=== PATIENT | male | born 1960 | race Caucasian/White ===

== ENCOUNTER 2017-08-09 15:22 | Emergency (ER) | payer MEDICARE ==
[~2017-08-09] VITALS: Ht 185.4 cm; Wt 72.7 kg
[~2017-08-09 15:22] MED LIST: ACHYD1T; ASP325T PO; ASPI-586 PO; ASPI-983 PO; ASPI325T32 PO; ATOR40TA70 PO; ATOR80TA76 PO; Aspirin PO; Atorvastatin Calcium PO; CLOP75TA PO; CLOP75TA28 PO; DOXY100C2 PO; ENAL2.5T PO; ENAL20TA PO; GLIP10TA13 PO; GLIP5TAB13 PO; HYDR1TAB PO; INSU100I29 SQ; INSU100V5 SQ; METO50TA7 PO; MIRT15TA6 PO; MUPI1OIN5 NS; NAPR220T66 PO; NEED1DIS84 MC; OMEP-10 PO; OMG1KC; OXYC-202 PO; OXYC-465 PO; OXYCOD/APAP; OXYCODONE; Omega 3 Polyunsat Fatty Acids PO; PANT40TA3 PO; PNT40TEC PO; PRAV80TA2 PO; SIMV40TA2 PO
--- OUTSIDE RECORDS SUMMARY | 2017-08-09 15:29 | XMS REPORT | Continuity of Care Document ---
Author Author [facility] Organization [facility] Address Unknown Phone Unavailable Allergies Active Description Code Type Severity Reaction Onset Reported/Identified Relationship to Patient Clinical Status Yes No Known Drug Allergies [id number] Drug Allergy Unknown N/ A 02/20/2013 Medications Problems Date Dx Coded Attending Type Code Diagnosis Diagnosed By 11/15/2014 MIHIR DO, NATASHA K Ot 250.00 11/15/2014 MIHIR DO, NATASHA K Ot 272.4 11/15/2014 [place] DO, NATASHA K Ot 401.9 11/15/2014 [place] DO, NATASHA K Ot 414.00 11/15/2014 [place] DO, NATASHA K Ot 786.50 11/15/2014 [place] DO, NATASHA K Ot V45.81 11/15/2014 [place] DO, NATASHA K Ot V45.82 11/15/2014 [place] DO, NATASHA K Ot V58.69 05/19/2015 ILEANA REYNOSO, CHRISTOPH R Ot 250.00 05/19/2015 ILEANA REYNOSO, CHRISTOPH R Ot 305.1 05/19/2015 ILEANA REYNOSO, CHRISTOPH R Ot 414.01 05/19/2015 ILEANA REYNOSO, CHRISTOPH R Ot 414.02 05/19/2015 ILEANA REYNOSO, CHRISTOPH R Ot 414.2 05/19/2015 ILEANA REYNOSO, CHRISTOPH R Ot 496 05/19/2015 ILEANA REYNOSO, CHRISTOPH R Ot 786.50 05/19/2015 ILEANA REYNOSO, CHRISTOPH R Ot V15.81 05/19/2015 ILEANA REYNOSO, CHRISTOPH R Ot V45.81 05/19/2015 ILEANA REYNOSO, CHRISTOPH R Ot V45.82 05/19/2015 ILEANA REYNOSO, CHRISTOPH R Ot V58.69 07/18/2015 COOPER REYNOSO, SUSAN Pretty Ot 250.00 07/18/2015 COOPER REYNOSO, SUSAN Pretty Ot 272.4 07/18/2015 COOPER REYNOSO, SUSAN Pretty Ot 305.1 07/18/2015 COOPER REYNOSO, SUSAN J Ot 401.9 07/18/2015 COOPER REYNOSO, SUSAN J Ot 411.1 07/18/2015 COOPER REYNOSO, SUSAN J Ot 414.01 07/18/2015 COOPER REYNOSO, SUSAN J Ot 414.02 07/18/2015 COOPER REYNOSO, SUSAN J Ot 414.2 07/18/2015 COOPER REYNOSO, SUSAN J Ot E11.9 07/18/2015 COOPER REYNOSO, SUSAN J Ot E78.5 07/18/2015 COOPER REYNOSO, SUSAN J Ot F17.211 07/18/2015 COOPER REYNOSO, SUSAN J Ot F17.220 07/18/2015 COOPER REYNOSO, SUSAN J Ot I10 07/18/2015 COOPER REYNOSO, SUSAN J Ot I25.119 07/18/2015 COOPER REYNOSO, SUSAN J Ot I25.709 07/18/2015 COOPER REYNOSO, SUSAN J Ot I25.82 07/18/2015 COOPER REYNOSO, SUSAN J Ot V15.81 07/18/2015 COOPER REYNOSO, SUSAN J Ot V45.81 07/18/2015 COOPER REYNOSO, SUSAN J Ot V45.82 07/18/2015 COOPER REYNOSO, SUSAN J Ot V58.69 07/18/2015 COOPER REYNOSO, SUSAN J Ot Z79.899 07/18/2015 COOPER REYNOSO, SUSAN J Ot Z91.19 07/18/2015 COOPER REYNOSO, SUSAN J Ot Z95.1 07/18/2015 COOPER REYNOSO, SUSAN J Ot Z95.5 09/13/2015 ILEANA REYNOSO, CHRISTOPH R Ot E11.65 09/13/2015 ILEANA REYNOSO, CHRISTOPH R Ot E78.5 09/13/2015 ILEANA REYNOSO, CHRISTOPH R Ot F17.210 09/13/2015 ILEANA REYNOSO, CHRISTOPH R Ot G89.29 09/13/2015 ILEANA REYNOSO, CHRISTOPH R Ot I10 09/13/2015 ILEANA REYNOSO, CHRISTOPH R Ot I70.90 09/13/2015 ILEANA REYNOSO, CHRISTOPH R Ot J44.9 09/14/2015 ILEANA REYNOSO, CHRISTOPH R Ot E11.65 09/14/2015 ILEANA REYNOSO, CHRISTOPH R Ot E78.5 09/14/2015 ILEANA REYNOSO, CHRISTOPH R Ot F17.210 09/14/2015 ILEANA REYNOSO, CHRISTOPH R Ot G89.29 09/14/2015 ILEANA REYNOSO, CHRISTOPH R Ot I10 09/14/2015 ILEANA REYNOSO, CHRISTOPH R Ot I70.90 09/14/2015 ILEANA REYNOSO, CHRISTOPH R Ot J44.9 10/26/2015 ILEANA REYNOSO, CHRISTOPH R Ot E11.65 10/26/2015 ILEANA ERYNOSO, CHRISTOPH R Ot E78.0 10/26/2015 IELANA REYNOSO, CHRISTOPH R Ot F32.9 10/26/2015 ILEANA REYNOSO, CHRISTOPH R Ot G89.29 10/26/2015 ILEANA REYNOSO, CHRISTOPH R Ot I10 10/26/2015 ILEANA REYNOSO, CHRISTOPH R Ot I25.10 10/26/2015 ILEANA REYNOSO, CHRISTOPH R Ot T14.91 10/26/2015 ILEANA REYNOSO, CHRISTOPH R Ot X83.8XXA 10/26/2015 ILEANA REYNOSO, CHRISTOPH R Ot Y99.8 10/26/2015 ILEANA REYNOSO, CHRISTOPH R Ot Z79.4 10/26/2015 ILEANA REYNOSO, CHRISTOPH R Ot Z95.1 05/05/2016 ILEANA REYNOSO, CHRISTOPH R Ot E11.65 TYPE 2 DIABETES MELLITUS WITH HYPERGLYCE 05/05/2016 ILEANA REYNOSO, CHRISTOPH R Ot E13.10 OTH DIABETES MELLITUS WITH KETOACIDOSIS 05/05/2016 ILEANA REYNOSO, CHRISTOPH R Ot E78.0 PURE HYPERCHOLESTEROLEMIA 05/05/2016 ILEANA REYNOSO, CHRISTOPH R Ot E86.0 DEHYDRATION 05/05/2016 ILEANA REYNOSO, CHRISTOPH R Ot E87.5 HYPERKALEMIA 05/05/2016 ILEANA REYNOSO, CHRISTOPH R Ot F32.9 MAJOR DEPRESSIVE DISORDER, SINGLE EPISOD 05/05/2016 ILEANA REYNOSO, CHRISTOPH R Ot G89.29 OTHER CHRONIC PAIN 05/05/2016 ILEANA REYNOSO, CHRISTOPH R Ot I10 ESSENTIAL (PRIMARY) HYPERTENSION 05/05/2016 ILEANA REYNOSO, CHRISTOPH R Ot I25.10 ATHSCL HEART DISEASE OF [place] CORONARY 05/05/2016 CHRISTOPH TEJEDA MD, Ot K21.9 GASTRO-ESOPHAGEAL REFLUX DISEASE WITHOUT 05/05/2016 CHRISTOPH TEJEDA MD, Ot M54.9 DORSALGIA, UNSPECIFIED 05/05/2016 CHRISTOPH TEJEDA MD, Ot Z87.891 PERSONAL HISTORY OF NICOTINE DEPENDENCE 05/05/2016 CHRISTOPH TEJEDA MD, Ot Z91.14 PATIENT'S OTHER NONCOMPLIANCE WITH MEDIC 05/05/2016 CHRISTOPH TEJEDA MD, Ot Z95.1 PRESENCE OF AORTOCORONARY BYPASS GRAFT 05/05/2016 CHRISTOPH TEJEDA MD, Ot Z95.5 PRESENCE OF CORONARY ANGIOPLASTY IMPLANT 10/01/2016 CHRISTOPH TEJEDA MD, Ot N52.9 MALE ERECTILE DYSFUNCTION, UNSPECIFIED 10/24/2016 CHRISTOPH TEJEDA MD, Ot N52.9 MALE ERECTILE DYSFUNCTION, UNSPECIFIED Procedures Results Test Result Range Serum or plasma testosterone measurement (mass/volume) - 09/30/16 12:48 Testosterone [mass or moles/volume] in serum or plasma 193 % 241-827 Encounters ACCT No. Visit Date/Time Discharge Status Pt. Type Provider Facility Loc./Unit Complaint [id number] 09/30/2016 12:37:00 2015 23:59:59 CLS Outpatient CHRISTOPH TEJEDA MD [facility] LAB ED [id number] 05/03/2016 09:00:00 2015 11:30:00 DIS Inpatient CHRISTOPH TEJEDA MD [facility] 4TH AMS HYPERKALEMIA ARF HYPERGLYCEMIA [id number] 10/25/2015 12:41:00 2014 11:30:00 DIS Inpatient CHRISTOPH TEJEDA MD [facility] ICU [id number] 09/11/2015 12:45:00 2014 08:30:00 DIS Inpatient CHRISTOPH TEJEDA MD [facility] 4TH [id number] 07/17/2015 22:14:00 2014 20:20:00 DIS Outpatient COOPER REYNOSO, SUSAN Pretty [facility] CATH [id number] 05/17/2015 15:00:00 2014 10:10:00 DIS Outpatient CHRISTOPH TEJEDA MD [facility] [id number] 11/15/2014 18:26:00 2014 20:01:00 DIS Emergency NATASHA ASH DO [facility] ER [id number] 05/09/2014 09:45:00 2013 12:15:00 DIS Outpatient [id number] 05/04/2014 07:28:00 2013 23:59:59 CLS Outpatient [id number] 05/02/2014 09:07:00 2013 23:59:59 CLS Outpatient [id number] 04/15/2014 10:44:00 2013 23:59:59 CLS Outpatient [id number] 04/11/2014 10:04:00 2013 23:59:59 CLS Outpatient [id number] 07/14/2013 11:16:00 2012 23:59:59 CLS Outpatient [id number] 02/20/2013 20:30:00 2012 12:10:00 DIS Outpatient
[2017-08-09] MEDS ORDERED: NS IV 1000 ML 1,000 ML ONE (15:53)
[2017-08-09] MEDS ORDERED: NS IV 1000 ML 1,000 ML IV ONE (16:00)
[2017-08-09] MEDS ORDERED: NS IV 1000 ML 1,000 ML IV STA (16:01)
[2017-08-09 16:06] LABS: BASOPHILS # (AUTO) 0.2 10^3/uL (0.0-0.1); BASOPHILS % (AUTO) 1 % (0-10); EOSINOPHILS # (AUTO) 0.2 10^3/uL (0.0-0.3); EOSINOPHILS % (AUTO) 2 % (0-10); LYMPHOCYTES # (AUTO) 3.9 X 10^3 (1.0-4.0); LYMPHOCYTES % (AUTO) 37 % (12-44); MEAN CORPUSCULAR HEMOGLOBIN 28 PG (25-34); MEAN CORPUSCULAR HGB CONC 35 G/DL (32-36); MEAN CORPUSCULAR VOLUME 82 FL (80-99); MEAN PLATELET VOLUME 10.5 FL (7.4-10.4); MONOCYTES # (AUTO) 0.9 X 10^3 (0.0-1.0); MONOCYTES % (AUTO) 8 % (0-12); NEUTROPHILS # (AUTO) 5.6 X 10^3 (1.8-7.8); NEUTROPHILS % (AUTO) 52 % (42-75); PLATELET COUNT 420 10^3/uL (130-400); RED BLOOD COUNT 5.15 10^6/uL (4.35-5.85); RED CELL DISTRIBUTION WIDTH 12.2 % (10.0-14.5); WHITE BLOOD COUNT 10.7 10^3/uL (4.3-11.0)
--- NOTE | 2017-08-09 16:07 | ED General ---
General Chief Complaint: Glucose Problems Stated Complaint: HIGH BLOOD PRESSURE Nursing Triage Note: PT AMBULATES TO ROOM 8 CO OF ELEVATED BS. WAS HOSPITALIZED LAST WEEK FOR KETOACIDOSIS Nursing Sepsis Screen: No Definite Risk Source of Information: Patient, Spouse Exam Limitations: No Limitations History of Present Illness Time Seen by Provider: 15:59 Initial Comments Patient presents to ER by private conveyance with his spouse with chief complaint that he is blood sugar for the past 2 days has been elevated. This morning it was reading high and then he took his 10 units of Levemir as prescribed and it was 441 after that. He was one week ago discharged from the hospital for DKA. He was in the hospital for 3 days. He also has a history of coronary disease with 6 stents and a coronary artery bypass graft. He is having no chest pain or abdominal pain but he does have intermittent crampy pains on the right side of his abdomen. He's had no nausea or vomiting. He has been urinating frequently and feels very dehydrated with a dry mouth and says his skin tents up when he pinches it. He does not take any short acting insulin, metformin and has been stopped on the glipizide. Allergies and Home Medications Allergies Coded Allergies: No Known Drug Allergies (Unverified , 02/20/13) Home Medications Aspirin 81 Mg Tablet.dr, 81 MG PO DAILY PRN for CHEST PAIN, (Reported) Atorvastatin Calcium 40 Mg Tablet, 40 MG PO HS, #30 Prescribed by: REYNA LIZ on 08/03/17 0933 Enalapril Maleate 2.5 Mg Tablet, 2.5 MG PO DAILY for 30 Days, #30 Prescribed by: REYNA LIZ on 08/03/17 0929 Insulin Aspart 100 Unit/1 Ml Susp, 5 UNIT SQ TIDAC for 30 Days, #10 Ref 0 Prescribed by: CELSO HACKETT on 08/09/17 1720 Insulin Determir 1,000 Units/10 Ml Soln, 10 UNITS SQ HS for 30 Days, #30 Prescribed by: REYNA LIZ on 08/03/17 0929 Mupirocin Calcium 1 Gm Oint...g., 1 GM NS BID, #1 insert into nose twice daily x 5 days Prescribed by: DELMI DUNBAR on 05/05/16 1105 Oxycodone HCl/Acetaminophen 1 Each Tablet, 2 TAB PO Q6H PRN for PAIN, (Reported) Pantoprazole Sodium 40 Mg Tablet.dr, 40 MG PO DAILY, (Reported) Constitutional: No chills, No diaphoresis EENTM: No hearing loss, No ear pain Respiratory: No cough, No short of breath Cardiovascular: No chest pain, No palpitations Gastrointestinal: see HPI, abdominal pain, No constipation, No diarrhea, No nausea, No vomiting Genitourinary: No discharge, dysuria Musculoskeletal: No back pain, No joint pain Skin: No pruritus, No rash Psychiatric/Neurological: Denies Headache, Denies Numbness, Paresthesia ( bilateral lower extremity peripheral neuropathy), Tingling Past Vfitszm-Iaappm-Uneupi Hx Patient Social History Alcohol Use: Denies Use Recreational Drug Use: No Smoking Status: Former Smoker Type Used: Smokeless Tobacco Former Smoker, Quit: Jan 05, 2015 Recent Foreign Travel: No Contact w/Someone Who Travel: No Recent Infectious Disease Expo: No Recent Hopitalizations: Yes (KETOACIDOSIS) Physical Abuse: No Sexual Abuse: No Immunizations Up To Date Tetanus Booster (TDap): More than 5yrs PED Vaccines UTD: No Seasonal Allergies Seasonal Allergies: No Surgeries History of Surgeries: Yes Surgeries: Cardiac, CABG, Coronary Stent, Orthopedic Respiratory History of Respiratory Disorde: Yes Respiratory Disorders: COPD Currently Using CPAP: No Currently Using BIPAP: No Cardiovascular History of Cardiac Disorders: Yes Cardiac Disorders: Coronary Artery Disease, High Cholesterol, Hypertension Neurological History of Neurological Disord: Yes ("fibro and neuropathy" "pinched nerve") Neurological Disorders: Neuropathy Reproductive System Hx Reproductive Disorders: No Sexually Transmitted Disease: No HIV/AIDS: No Genitourinary History of Genitourinary Disor: Yes ("BLADDER STRETCHED CHILD X 2") Gastrointestinal History of Gastrointestinal Di: Yes Gastrointestinal Disorders: Gastroesophageal Reflux Musculoskeletal History of Musculoskeletal Dis: Yes Musculoskeletal Disorders: Arthritis, Chronic Back Pain Endocrine History of Endocrine Disorders: Yes Endocrine Disorders: Diabetes, Insulin dep HEENT History of HEENT Disorders: Yes Loss of Vision: Denies Hearing Impairment: Denies Cancer History of Cancer: No Psychosocial History of Psychiatric Problem: Yes (history of suicidal ideation) Suicide Risk Score: 0 Integumentary History of Skin or Integumenta: No Blood Transfusions History of Blood Disorders: No Adverse Reaction to a Blood Tr: No Family Medical History Family Medial History: Cardiovascular disease 19 MOTHER G8 BROTHER Diabetes mellitus 19 MOTHER Physical Exam Vital Signs Vital Sign - Last 12Hours 08/09/17 15:40 Temp 97.1 Pulse 124 Resp 18 B/P (MAP) 142/104 Pulse Ox 96 Capillary Refill : Less Than 3 Seconds General Appearance: WD/WN, Mild Distress Eyes: Bilateral Eye Normal Inspection, Bilateral Eye PERRL, Bilateral Eye EOMI HEENT: PERRL/EOMI, Normal ENT Inspection, Pharynx Normal Neck: Full Range of Motion, Normal Inspection, Non Tender Respiratory: Chest Non Tender, Lungs Clear, Normal Breath Sounds Cardiovascular: Regular Rate, Rhythm, No Edema, Normal Peripheral Pulses, Other (skin turgor shows skin tenting on back of hands.) Gastrointestinal: Normal Bowel Sounds, Soft, Tenderness (mild tenderness right upper quadrant) Back: Normal Inspection, No Vertebral Tenderness Extremity: Normal Capillary Refill, Normal Inspection, Non Tender, No Calf Tenderness, No Pedal Edema Neurologic/Psychiatric: Alert, Oriented x3 Skin: Normal Color, Warm/Dry, Other (dry mucous membranes.) Progress/Results/Core Measures Results/Orders Lab Results Laboratory Tests Test 08/09/17 15:40 08/09/17 16:10 08/09/17 16:33 Range/Units White Blood Count 10.7 4.3-11.0 10^3/uL Red Blood Count 5.15 4.35-5.85 10^6/uL Hemoglobin 14.6 13.3-17.7 G/DL Hematocrit 42 40-54 % Mean Corpuscular Volume 82 80-99 FL Mean Corpuscular Hemoglobin 28 25-34 PG Mean Corpuscular Hemoglobin Concent 35 32-36 G/DL Red Cell Distribution Width 12.2 10.0-14.5 % Platelet Count 420 H 130-400 10^3/uL Mean Platelet Volume 10.5 H 7.4-10.4 FL Neutrophils (%) (Auto) 52 42-75 % Lymphocytes (%) (Auto) 37 12-44 % Monocytes (%) (Auto) 8 0-12 % Eosinophils (%) (Auto) 2 0-10 % Basophils (%) (Auto) 1 0-10 % Neutrophils # (Auto) 5.6 1.8-7.8 X 10^3 Lymphocytes # (Auto) 3.9 1.0-4.0 X 10^3 Monocytes # (Auto) 0.9 0.0-1.0 X 10^3 Eosinophils # (Auto) 0.2 0.0-0.3 10^3/uL Basophils # (Auto) 0.2 H 0.0-0.1 10^3/uL Prothrombin Time 12.2 12.2-14.7 SEC INR Comment 0.9 0.8-1.4 Activated Partial Thromboplast Time 24 24-35 SEC Sodium Level 132 L 135-145 MMOL/L Potassium Level 4.5 3.6-5.0 MMOL/L Chloride Level 95 L 98-107 MMOL/L Carbon Dioxide Level 25 21-32 MMOL/L Anion Gap 12 5-14 MMOL/L Blood Urea Nitrogen 16 7-18 MG/DL Creatinine 1.16 0.60-1.30 MG/DL Estimat Glomerular Filtration Rate > 60 BUN/Creatinine Ratio 14 Glucose Level 531 *H 70-105 MG/DL Glucometer 440 *H 70-110 MG/DL Calcium Level 9.7 8.5-10.1 MG/DL Phosphorus Level 3.0 2.3-4.7 MG/DL Magnesium Level 2.2 1.8-2.4 MG/DL Total Bilirubin 0.3 0.1-1.0 MG/DL Aspartate Amino Transf (AST/SGOT) 9 5-34 U/L Alanine Aminotransferase (ALT/SGPT) 15 0-55 U/L Alkaline Phosphatase 120 40-136 U/L Total Protein 7.3 6.4-8.2 GM/DL Albumin 4.2 3.2-4.5 GM/DL Urine Color YELLOW Urine Clarity CLEAR Urine pH 6 5-9 Urine Specific [place] 1.010 L 1.016-1.022 Urine Protein 1+ H NEGATIVE Urine Glucose (UA) 4+ H NEGATIVE Urine Ketones NEGATIVE NEGATIVE Urine Nitrite NEGATIVE NEGATIVE Urine Bilirubin NEGATIVE NEGATIVE Urine Urobilinogen NORMAL NORMAL MG/DL Urine Leukocyte Esterase NEGATIVE NEGATIVE Urine RBC (Auto) NEGATIVE NEGATIVE Urine RBC RARE /HPF Urine WBC NONE /HPF Urine Crystals NONE /LPF Urine Bacteria NONE /HPF Urine Casts NONE /LPF Urine Mucus NEGATIVE /LPF Urine Culture Indicated NO Urine Opiates Screen POSITIVE H NEGATIVE Urine Oxycodone Screen NEGATIVE NEGATIVE Urine Methadone Screen NEGATIVE NEGATIVE Urine Propoxyphene Screen NEGATIVE NEGATIVE Urine Barbiturates Screen NEGATIVE NEGATIVE Ur Tricyclic Antidepressants Screen NEGATIVE NEGATIVE Urine Phencyclidine Screen NEGATIVE NEGATIVE Urine Amphetamines Screen NEGATIVE NEGATIVE Urine Methamphetamines Screen NEGATIVE NEGATIVE Urine Benzodiazepines Screen NEGATIVE NEGATIVE Urine Cocaine Screen NEGATIVE NEGATIVE Urine Cannabinoids Screen NEGATIVE NEGATIVE Blood Gas Puncture Site LT RADIAL Blood Gas Patient Temperature 97.1 Arterial Blood pH 7.33 *L 7.37-7.43 Arterial Blood Partial Pressure CO2 43 35-45 MMHG Arterial Blood Partial Pressure O2 35 *L 79-93 MMHG Arterial Blood HCO3 23 23-27 MMOL/L Arterial Blood Total CO2 24.0 21.0-31.0 MMOL/L Arterial Blood Oxygen Saturation 66 L 94-100 % Arterial Blood Base Excess -2.5 -2.5-2.5 MMOL/L Jack Test YES-POS Blood Gas Ventilator Setting NO Blood Gas Inspired Oxygen ROOM My Orders Orders - CELSO HACKETT Cbc With Automated Diff (08/09/17 16:00) Comprehensive Metabolic Panel (08/09/17 16:00) Drug Screen Stat (Urine) (08/09/17 16:00) Magnesium (08/09/17 16:00) Protime With Inr (08/09/17 16:00) Partial Thromboplastin Time (08/09/17 16:00) Ua Culture If Indicated (08/09/17 16:00) Phosphorus (08/09/17 16:00) Chest 1 View, Ap/Pa Only (08/09/17 16:00) Saline Lock/Iv-Start (08/09/17 16:00) Ns Iv 1000 Ml (Sodium Chloride 0.9%) (08/09/17 16:00) Ns Iv 1000 Ml (Sodium Chloride 0.9%) (08/09/17 15:53) Saline Lock/Iv-Start (08/09/17 16:01) Ns Iv 1000 Ml (Sodium Chloride 0.9%) (08/09/17 16:01) Arterial Blood Gas (08/09/17 16:20) Insulin (Regular) Human (Humulin R (Per (08/09/17 17:15) Accucheck Stat ONCE (08/09/17 17:12) Insulin (Regular) Human (Humulin R (Per (08/09/17 17:05) Medications Given in ED Current Medications Medications Dose Ordered Sig/Lorena Route Start Time Stop Time Status Last Admin Dose Admin Insulin Human Regular 10 unit ONCE ONCE SC 08/09/17 17:15 08/09/17 17:16 DC 08/09/17 17:10 10 UNIT Sodium Chloride 1,000 ml @ 0 mls/hr Q0M ONCE IV 08/09/17 16:00 08/09/17 16:03 DC 08/09/17 16:05 1,000 MLS/HR Vital Signs/I&O Vital Sign - Last 12Hours 08/09/17 15:40 Temp 97.1 Pulse 124 Resp 18 B/P (MAP) 142/104 Pulse Ox 96 Intake and Output 08/10/17 00:00 Intake Total 2000 ml Balance 2000 ml Blood Pressure Mean: 117 Point of Care Testing Finger Stick Blood Glucose: 440 Blood Glucose Action Taken: RN AND DR NOTIFIED Progress Note #1: Time: 17:12 Progress Note Patient received 2 L of fluid and feeling much better. He is not in DKA. The ABG represents venous blood draw. His gap is closed and he has no acidosis seen on the CMP. We will give him 10 units or regular insulin recheck his Accu-Chek in about 10:15 minutes and if it's gone down we'll set him up with a dose of Levemir 20 units and NovoLog 5 units subcutaneous 3 times a day with meals and follow-up this week with his primary care physician. Progress Note #2: Time: 17:58 Progress Note Follow-up blood sugar is 344 we'll go ahead and discharge the patient and plans to increase insulin and follow-up with PCP next week. Diagnostic Imaging Diagonstic Imaging: Xray Plain Films/CT/US/NM/MRI: chest Comments NAME: OUMOU JEFFERS MED REC#: [id number] PHYSICIAN: CELSO HACKETT MD CC: SHANTAL ANDERSON MD; CLESO HACKETT Page 1 of 1 RADIOLOGY REPORT [facility]. [place], [place] CC: SHANTAL ANDERSON MD; CELSO HACKETT Page 1 of 1 RADIOLOGY REPORT NAME: OUMOU JEFFERS MED REC#: [id number] PT STATUS: REG ER : 1960 PHYSICIAN: CELSO HACKETT MD ADMIT DATE: 08/09/17/ER Signed Date of Exam: 10/14/17 CHEST 1 VIEW, AP/PA ONLY INDICATION: Elevated blood sugar. Comparison made with prior from August 02, 2017. FINDINGS: The patient is status post previous sternotomy and bypass grafting. There is no focal infiltrate. There is no evidence of effusion. There is no pneumothorax. Heart size is stable. The central pulmonary vascularity appears within normal limits without evidence of failure. IMPRESSION: Stable radiographic appearance of the chest. No acute cardiopulmonary process evident. Dictated by: Dictated on workstation # [id number] Dict: 08/09/17 1631 Trans: 08/09/171658 Interpreted by: SHANTAL ANDERSON MD Electronically signed by: SHANTAL ANDERSON MD 08/09/171658 Reviewed: Reviewed by Me Departure Impression Impression: Primary Impression: Hyperglycemia Additional Impression: Diabetes mellitus Qualified Codes: E11.42 - Type 2 diabetes mellitus with diabetic polyneuropathy Disposition: HOME, SELF-CARE Condition: Improved Departure-Patient Inst. Referrals: CHRISTOPH TEJEDA MD (PCP/Family) Primary Care Physician Patient Instructions: Diabetes Type 2 (DC) Add. Discharge Instructions: Drink plenty of fluids and try and eat something even if it's a small healthy snack 3 times a day with your insulin. Increase your long-acting insulin to 20 units daily. Take up the needles and NovoLog and start taking 5 units with each meal. If you take the short acting insulin, NovoLog been you have to eat something even if it's just a snack. Avoid carbohydrates such as soda, posterior , crackers, rice, potatoes. Try and eat things high in fiber such as vegetables and protein. All discharge instructions reviewed with patient and/or family. Voiced understanding. Scripts Insulin Aspart (Novolog) 100 Unit/1 Ml Susp 5 UNIT SQ TIDAC for 30 Days, #10 ML 0 Refills Prov: CELSO HACKETT 08/09/17 Copy Copies To 1: CHRISTOPH TEJEDA MD, TITUS J Aug 09, 2017 16:07
[2017-08-09 16:11] LABS: INR 0.9 (0.8-1.4); PROTHROMBIN TIME PATIENT 12.2 SEC (12.2-14.7)
[2017-08-09 16:19] LABS: ALANINE AMINOTRANSFERASE 15 U/L (0-55); ALBUMIN 4.2 GM/DL (3.2-4.5); ANION GAP 12 MMOL/L (5-14); ASPARTATE AMINO TRANSFERASE 9 U/L (5-34); BILIRUBIN,TOTAL 0.3 MG/DL (0.1-1.0); BLOOD UREA NITROGEN 16 MG/DL (7-18); BUN/CREATININE RATIO 14; CALCIUM 9.7 MG/DL (8.5-10.1); CARBON DIOXIDE 25 MMOL/L (21-32); CHLORIDE 95 MMOL/L (98-107); CREATININE SERUM 1.16 MG/DL (0.60-1.30); GFR ESTIMATED > 60; MAGNESIUM 2.2 MG/DL (1.8-2.4); POTASSIUM 4.5 MMOL/L (3.6-5.0); SODIUM 132 MMOL/L (135-145); TOTAL PROTEIN 7.3 GM/DL (6.4-8.2)
[2017-08-09 16:21] LABS: BILIRUBIN,URINE NEGATIVE (NEGATIVE); KETONES,URINE NEGATIVE (NEGATIVE); LEUKOCYTE ESTERASE ,URINE NEGATIVE (NEGATIVE); NITRITE,URINE NEGATIVE (NEGATIVE); PH,URINE 6 (5-9); PROTEIN,URINE 1+ (NEGATIVE); UROBILINOGEN,URINE NORMAL (NORMAL)
[2017-08-09 16:27] LABS: GLUCOSE 531 MG/DL (70-105)
--- NOTE | 2017-08-09 16:35 | Diagnostic Imaging Report ---
INDICATION: Elevated blood sugar. Comparison made with prior from August 02, 2017. FINDINGS: The patient is status post previous sternotomy and bypass grafting. There is no focal infiltrate. There is no evidence of effusion. There is no pneumothorax. Heart size is stable. The central pulmonary vascularity appears within normal limits without evidence of failure. IMPRESSION: Stable radiographic appearance of the chest. No acute cardiopulmonary process evident. Dictated by: Dictated on workstation # [id number]
[2017-08-09 16:36] LABS: ABG BASE EXCESS -2.5 MMOL/L (-2.5-2.5); ABG HCO3 23 MMOL/L (23-27); ABG OXYGEN SATURATION 66 % (94-100); ABG PCO2 43 MMHG (35-45)
[2017-08-09 16:38] LABS: ABG PO2 35 MMHG (79-93)
[2017-08-09 16:40] LABS: ABG PH 7.33 (7.37-7.43); ALLENS TEST YES-POS; PATIENT TEMP 97.1
[2017-08-09] MEDS ORDERED: inSUlin (REGULAR) HUMAN 1 UNIT/0.01 ML (CHARGE PER UNIT) ONE (17:05)
[2017-08-09] MEDS ORDERED: inSUlin (REGULAR) HUMAN 1 UNIT/0.01 ML (CHARGE PER UNIT) SC ONE (17:15)
[2017-08-09] MEDS ORDERED: INSU100V16 SQ (17:20)
[2017-08-09 18:04] VITALS: BP 136/88
== END 2017-08-09 18:00 | disposition home or self-care (01) ==
LOC: EDUNIT# 15:22 → ER 15:24
DX: E11.65 Type 2 diabetes mellitus with hyperglycemia (principal); E11.40 Type 2 diabetes mellitus with diabetic neuropathy, unspecified; K21.9 Gastro-esophageal reflux disease without esophagitis; I25.10 Atherosclerotic heart disease of native coronary artery without angina pectoris; E78.00 Pure hypercholesterolemia, unspecified; I10 Essential (primary) hypertension; J44.9 Chronic obstructive pulmonary disease, unspecified; Z95.1 Presence of aortocoronary bypass graft; Z95.5 Presence of coronary angioplasty implant and graft; Z87.891 Personal history of nicotine dependence; Z79.4 Long term (current) use of insulin; Z79.82 Long term (current) use of aspirin
CPT/HCPCS: 36415; 71010; 80053; 80306; 81000; 82805; 82962; 83735; 84100; 85025; 85610; 85730

== ENCOUNTER 2017-08-27 08:33 | Day surgery (SDC) | payer MEDICARE ==
[~2017-08-27] VITALS: Ht 185.4 cm; Wt 68.0 kg
[2017-08-27] VITALS (9 sets, daily range): BP systolic 133–162; BP diastolic 86–103
[~2017-08-27 08:33] MED LIST changes: +INSU100V16 SQ
[2017-08-27] MEDS ORDERED: HEParin 1000 UNIT/ML (10ML VIAL) FOR BOLUS ONE (08:35)
[2017-08-27] MEDS ORDERED: NS IV 1000 ML 1,000 ML IV SCH ×2 (08:45→12:18)
[2017-08-27 09:05] LABS: BILIRUBIN,URINE NEGATIVE (NEGATIVE); KETONES,URINE NEGATIVE (NEGATIVE); LEUKOCYTE ESTERASE ,URINE NEGATIVE (NEGATIVE); NITRITE,URINE NEGATIVE (NEGATIVE); PH,URINE 6 (5-9); PROTEIN,URINE 2+ (NEGATIVE); UROBILINOGEN,URINE NORMAL (NORMAL)
[2017-08-27 09:09] LABS: RED BLOOD COUNT 4.56 10^6/uL (4.35-5.85); RED CELL DISTRIBUTION WIDTH 12.3 % (10.0-14.5)
[2017-08-27] MEDS ORDERED: ENAL2.5T PO (09:13)
[2017-08-27] MEDS ORDERED: ATOR40TA70 PO (09:13)
[2017-08-27] MEDS ORDERED: INSU100V5 SQ (09:13)
[2017-08-27 09:15] LABS: INR 0.9 (0.8-1.4); PROTHROMBIN TIME PATIENT 12.1 SEC (12.2-14.7)
[2017-08-27] MEDS ORDERED: INFLUENZA TRIvalent 2017-2018 0.5 ML/45 MCG SYR IM ONE (09:15)
[2017-08-27 09:23] LABS: ALANINE AMINOTRANSFERASE 11 U/L (0-55); ALBUMIN 3.8 GM/DL (3.2-4.5); ANION GAP 9 MMOL/L (5-14); ASPARTATE AMINO TRANSFERASE 9 U/L (5-34); BILIRUBIN,TOTAL 0.4 MG/DL (0.1-1.0); BLOOD UREA NITROGEN 7 MG/DL (7-18); BUN/CREATININE RATIO 8; CALCIUM 9.1 MG/DL (8.5-10.1); CARBON DIOXIDE 28 MMOL/L (21-32); CHLORIDE 101 MMOL/L (98-107); CHOLESTEROL 187 MG/DL (< 200); CREATININE SERUM 0.87 MG/DL (0.60-1.30); DIRECT LDL 76 MG/DL (1-129); GFR ESTIMATED > 60; GLUCOSE 295 MG/DL (70-105); POTASSIUM 3.6 MMOL/L (3.6-5.0); SODIUM 138 MMOL/L (135-145); TOTAL PROTEIN 6.4 GM/DL (6.4-8.2); TRIGLYCERIDES 447 MG/DL (<150); VLDL CHOLESTEROL 89 MG/DL (5-40)
--- NOTE | 2017-08-27 09:35 | Diagnostic Imaging Report ---
EXAMINATION: Portable upright radiograph of the chest. INDICATION: Hypertension. Peripheral vascular disease. FINDINGS: There is a tiny left pleural effusion and left basilar atelectasis seen. Element of scarring is probably present as similar findings are seen on prior radiographs. The right lung is clear of focal infiltrate. There is suggestion of emphysema with hyperlucency in the upper lobes. The heart size is normal. No pneumothorax. The mediastinum and francia appear unremarkable. Sternotomy wires are seen. IMPRESSION: Tiny left pleural effusion with mild left basilar atelectasis and infiltrate. Dictated by: Dictated on workstation # [id number]
--- NOTE | 2017-08-27 10:01 | Cardiac Procedure Note-CS/ASA ---
Pre-Procedure Note Pre-Op Procedure Note H&P Reviewed The H&P was reviewed, patient examined and no changes noted. Date H&P Reviewed: Aug 27, 2017 Time H&P Reviewed: 10:01 Conscious Sedation Pre-Proced Time Reviewed: 10: ASA Class: 3 Airway Mallampati Classification: ([place] appropriate class) I. II. III, IV Lungs Heart ASA score ASA 1: a normal healthy patient ASA 2: a patient with a mild systemic disease (mid diabetes, controlled hypertension, obesity x ASA 3: a patient with a severe systemic disease that limits activity (angina , COPD, prior Myocardial infarction) ASA 4: a patient with an incapacitating disease that is a constant threat to life (CHF, renal failure) ASA 5: a moribund patient not expected to survive 24 hrs. (ruptured aneurysm) ASA 6: a declared brain patient whose organs are being harvested. For emergent operations, add the letter E after the classification Grade 3 Sedation Plan: Analgesia, Amnesia, Plan communicated to team members, Discussed options with patient/fam, Discussed risks with patient/fam Note The patient is an appropriate candidate to undergo the planned procedure, sedation, and anesthesia. The patient immediately re-assessed prior to indication. SUSAN GAMBOA MD Aug 27, 2017 10:01
[2017-08-27] MEDS ORDERED: NITROGLYCERIN DRIP 25 MG/D5W 0 ML IV ONE (11:24)
[2017-08-27] MEDS ORDERED: MIDAZOLAM 5 MG/5 ML (VERSED) VIAL ONE (11:24)
[2017-08-27] MEDS ORDERED: fentaNYL INJECTION 100 MCG/2 ML AMP ONE (11:24)
--- NOTE | 2017-08-27 12:20 | Discharge Inst-Post CATH ---
Discharge Inst-CATH Post Cardiac Cath D/C Inst Follow Up/Plan Appointment with Dr Ramírez's office in 2-4 weeks CARDIAC CATH DISCHARGE INSTRUCTIONS *Hold Metformin for 48 hours post heart cath. ACTIVITY * Go Home directly and rest. * Limit activity of the leg (or wrist if it was used) for 7 days including aerobics, swimming, jogging, bicycling, etc. * Restrict stair-climbing for 7 days if possible, if not, climb up with your non -cath leg, then bring together on the same step. * Avoid lifting, pushing, pulling or excessive movement of the affected extremity for 7 days. * Customary sexual activity may be resumed after 2 days-use caution not to use a position that strains or causes pain to the affected extremity. * No driving for 24 hours. * NO SMOKING. * Avoid straining for bowel movements for 7 days. * Gentle walking on level ground is allowed. * Returning to work will depend on the type of procedure and the results. Your doctor will discuss this with you. CALL YOUR DOCTOR FOR ANY OF THE FOLLOWING: *If bleeding from the puncture site occurs- Apply gentle pressure to site with clean cloth and call your doctor or EMS. * If a knot or lump forms under the skin, increases in size, or causes pain. * If bruising appears to be worsening or moving further down your leg instead of disappearing. * Temperature above 101 F. CARE OF YOUR GROIN INCISION; * Bruising or purple discoloration of the skin near the puncture site is common. * You may shower only, no bathtub bathing for 5 days. Be careful to avoid slipping as your leg may feel stiff. * If a closure device was used on your femoral artery, please see the attached guide regarding care of the device and your leg. * REMOVE the dressing from your groin the next day after your procedure in the shower. CARE OF YOUR WRIST INCISION; * Bruising or purple discoloration of the skin near the puncture site is common. * You may shower. * DO NOT submerge wrist. * Remove dressing in 24 hours. SUSAN RAMÍREZ MD Aug 27, 2017 12:20
--- NOTE | 2017-08-27 12:27 | Peripheral Report ---
Peripheral Report Physician (s)/Medical Records Analyst (s) Physician SUSAN GAMBOA MD Pre-Procedure Diagnosis Pre-Procedure Diagnosis: claudication peripheral arterial disease Post-Procedure Note Procedure Start Date: Aug 27, 2017 Name of Procedure: abdominal aortogram Bilateral lower except he ran off Additional imaging Second order Findings/Procedure Note PROCEDURE NOTE: After explaining the procedure to the patient, all pros and cons were explained, all questions were answered. The patient signed the consent and then she was placed on the cardiac catheterization laboratory. The patient was placed on the cardiac catheterization laboratory. Groin was prepped SL fashion local anesthesia was used. Sheath placed in the right groin Runoff of the right lower except he was done in 2 stages Pigtail catheter advanced to the abdominal aorta Crossover with pigtail catheter then a straight catheter down to the common femoral artery runoff to the left lower except he was done and then the catheter was flushed and pressure during pullback to the common iliac artery was done which showed 20 mmHg gradient, repeat angiogram to the iliac artery showed aneurysm with severe stenosis. Decision was made to treat it conservatively and referred him for vascular surgery evaluation At the end of the procedure sheath was removed Device deployed FINDINGS: Abdominal aortogram showed atherosclerotic disease, no dissection, mild aneurysmal dilated patient Right lower extremity was done on 2 stages, 40-50 percent stenosis at the right SFA, 70 percent stenosis at the tibial peroneal trunk with mild disease at the anterior tibial artery. Left lower extremity runoff was done showing aneurysmal dilated patient at the left common iliac followed by severe stenosis, mild to moderate disease at the left SFA and anterior tibial, good flow down to the foot. Gradient across the lesion in the iliac artery is 20 mmHg CONCLUSIONS:next 1. 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 2. Mild to moderate disease at the left SFA and anterior tibial artery 3. [id number] disease of the right SFA, 60-70 percent stenosis at the right tibial peroneal trunk 4. Normal abdominal aorta with mild hypertensive changes DISCUSSION AND RECOMMENDATIONS: I will treat him conservatively, referral for vascular surgery evaluation. Anesthesia Type: Conscious Sedation Estimated blood loss (mL): 10 ml Contrast Amount: 58 ml Total Radiation Dose: 117 mGy Post-Procedure Diagnosis Post-operative diagnosis: PAD Claudication CAD HTN SUSAN GAMBOA MD Aug 27, 2017 12:27
[2017-08-27] MEDS ORDERED: PATIENT MAY USE OWN MEDS, ALL PO SCH (12:30)
== END 2017-08-27 16:55 | disposition home or self-care (01) ==
LOC: CATH 08:33 → SURG 12:37 → CATH 16:55
PROVIDERS: ATTEND Internal Medicine Cardiovascular Disease
DX: I70.213 Atherosclerosis of native arteries of extremities with intermittent claudication, bilateral legs (principal); I70.0 Atherosclerosis of aorta; I72.3 Aneurysm of iliac artery; I25.10 Atherosclerotic heart disease of native coronary artery without angina pectoris; I10 Essential (primary) hypertension; E78.2 Mixed hyperlipidemia; I34.0 Nonrheumatic mitral (valve) insufficiency; E11.9 Type 2 diabetes mellitus without complications; Z95.5 Presence of coronary angioplasty implant and graft; Z87.891 Personal history of nicotine dependence; Z91.14 Patient's other noncompliance with medication regimen; Z79.4 Long term (current) use of insulin; Z79.82 Long term (current) use of aspirin
CPT/HCPCS: 36246; 36415; 71010; 75625; 75716; 80053; 80061; 81000; 85027; 85610; 85730; 87081; 93005

== ENCOUNTER 2017-12-28 20:48 | Emergency (ER) | payer MEDICARE ==
[~2017-12-28] VITALS: Ht 185.4 cm; Wt 66.7 kg
--- NOTE | 2017-12-28 21:16 | ED Hip Pain/Injury ---
General Chief Complaint: Hip/Pelvic Problems Stated Complaint: HIP INJ Nursing Triage Note: c/o R hip pain x 3 days after dog jumped on him History of Present Illness Date Seen by Provider: Dec 28, 2017 Time Seen by Provider: 21:00 Initial Comments 57-year-old male presents for right hip, buttocks and leg pain. He reports 3-4 days ago that a large dog jumped onto his right hip causing him to fall and land on his right buttocks. He reports taking an oxycodone/APAP 10/325 mg this morning for his pain. He is a type I diabetic, however he reports that he has not been taking his insulin for the last 6 months because he was no longer getting pain medication. He has not checked his blood sugars over the last 6 months. However per [facility] Tracs he has been getting 240 oxycodone/apap 10/ 325 mg on a monthly basis. Timing/Duration: getting worse Location: hip (R), other (right buttocks) Method of Injury: fell Modifying Factors: Improves With Rest, Improves With Other (cane for ambulation ) Associated Symptoms: No fatigue, No fever, No groin pain, No insomnia, No lumps , muscle aches, No pain radiating to knees, trouble walking Allergies and Home Medications Allergies Coded Allergies: No Known Drug Allergies (Unverified , 02/20/13) Home Medications Aspirin 81 Mg Tablet.dr, 81 MG PO DAILY PRN for CHEST PAIN, (Reported) Atorvastatin Calcium 40 Mg Tablet, 40 MG PO HS, (Reported) Enalapril Maleate 2.5 Mg Tablet, 2.5 MG PO DAILY, (Reported) Insulin Determir 1,000 Units/10 Ml Soln, 10 UNITS SQ DAILY, (Reported) Oxycodone HCl/Acetaminophen 1 Each Tablet, 2 TAB PO Q6H PRN for PAIN, (Reported) Pantoprazole Sodium 40 Mg Tablet.dr, 40 MG PO DAILY, (Reported) Patient Home Medication List Home Medication List Reviewed: Yes Constitutional: no symptoms reported, see HPI Musculoskeletal: see HPI, joint pain (right hip), muscle pain, muscle stiffness , muscle cramps All Other Systems Reviewed Negative Unless Noted: Yes Past Ouxifgl-Xrvfvq-Ldzepr Hx Patient Social History Alcohol Use: Denies Use Recreational Drug Use: No Type Used: Smokeless Tobacco Former Smoker, Quit: Aug 27, 2013 Recent Foreign Travel: No Contact w/Someone Who Travel: No Recent Infectious Disease Expo: No Recent Hopitalizations: No Physical Abuse: No Sexual Abuse: No Immunizations Up To Date Tetanus Booster (TDap): More than 5yrs PED Vaccines UTD: No Seasonal Allergies Seasonal Allergies: No Surgeries History of Surgeries: Yes (HOLE REPAIRED IN STOMACH, 2 FOOT, 1 KNEE) Surgeries: Cardiac, CABG, Coronary Stent, Orthopedic Respiratory History of Respiratory Disorde: Yes Respiratory Disorders: COPD Currently Using CPAP: No Currently Using BIPAP: No Cardiovascular History of Cardiac Disorders: Yes Cardiac Disorders: Coronary Artery Disease, High Cholesterol, Hypertension Neurological History of Neurological Disord: Yes ("fibro and neuropathy" "pinched nerve") Neurological Disorders: Neuropathy Reproductive System Hx Reproductive Disorders: No Sexually Transmitted Disease: No HIV/AIDS: No Genitourinary History of Genitourinary Disor: Yes ("BLADDER STRETCHED CHILD X 2") Gastrointestinal History of Gastrointestinal Di: Yes Gastrointestinal Disorders: Gastroesophageal Reflux Musculoskeletal History of Musculoskeletal Dis: Yes Musculoskeletal Disorders: Arthritis, Chronic Back Pain Endocrine History of Endocrine Disorders: Yes Endocrine Disorders: Diabetes, Insulin dep HEENT History of HEENT Disorders: Yes Loss of Vision: Denies Hearing Impairment: Denies Cancer History of Cancer: No Psychosocial History of Psychiatric Problem: Yes (history of suicidal ideation) Suicide Risk Score: 0 Integumentary History of Skin or Integumenta: No Blood Transfusions History of Blood Disorders: No Adverse Reaction to a Blood Tr: No Reviewed Nursing Assessment Reviewed/Agree w Nursing PMH: Yes Family Medical History Family Medial History: Cardiovascular disease 19 MOTHER G8 BROTHER Diabetes mellitus 19 MOTHER Physical Exam Vital Signs Vital Signs - First Documented 12/28/17 20:57 Temp 99.0 Pulse 123 Resp 18 B/P (MAP) 113/95 (101) Pulse Ox 99 Capillary Refill : Less Than 3 Seconds General Appearance: No Apparent Distress, WD/WN Neck: Full Range of Motion, Normal Inspection, Non Tender, Supple Cardiovascular: Regular Rate, Rhythm, No Edema, No Murmur Respiratory: Chest Non Tender, Lungs Clear Gastrointestinal: Normal Bowel Sounds, No Pulsatile Mass, Non Tender, Soft Back: Normal Inspection, No Vertebral Tenderness, No Muscle Spasm, No Vertebral Tenderness Extremity: Normal Inspection, Normal Range of Motion, Pelvis Stable, Other ( right hip limitation of motion secondary to pain.) Neurologic/Psychiatric: Alert, Oriented x3, No Motor/Sensory Deficits, Normal Mood/Affect Progress/Results/Core Measures Results/Orders Lab Results Laboratory Tests Test 12/28/17 21:40 Range/Units Glucometer 491 *H 70-110 MG/DL My Orders Orders - ELIZABETH WOLFF Pelvis With Right Hip 2-3views (12/28/17 21:03) Accucheck Stat ONCE (12/28/17 21:09) Vital Signs/I&O Vital Sign - Last 12Hours 12/28/17 12/28/17 20:57 21:58 Temp 99.0 99.0 Pulse 123 123 Resp 18 B/P (MAP) 113/95 (101) 113/95 (101) Pulse Ox 99 99 Blood Pressure Mean: 101 Progress Note : Time: 21:00 Progress Note Initial evaluation completed. Recommended x-ray of the right hip and pelvis. 2129 reviewed x-ray results with the patient. Accu-Chek 491. Discussed this with the patient, he refuses to be given insulin. States that he is not going to take insulin and long as he is being threatened that his pain medication will no longer be prescribed by his PCP. We discussed this at length and the risks associated with having hyperglycemia. He understands these risks and has also made himself a DO NOT RESUSCITATE and expressed these wishes to his family. I offered referral to addiction treatment services at [facility], patient refuses. AMA paperwork completed stating that the patient is refusing insulin or further treatment for his hyperglycemia. Discharge planning and return precautions reviewed. All questions answered. Diagnostic Imaging Diagonstic Imaging: Xray Plain Films/CT/US/NM/MRI: pelvis, hip Comments No acute fractures or dislocations appreciated. Will be over read by radiology. NAME: OUMOU JEFFERS [facility] REC#: [id number] PT STATUS: DEP ER : 1960 PHYSICIAN: ELIZABETH WOLFF ADMIT DATE: 12/28/17/ER Draft Date of Exam:12/28/17 PELVIS WITH RIGHT HIP 2-3VIEWS Clinical indication: Patient complains of pain in right hip x 3 days after his dog jumped in his lap. Exam: X-ray of the pelvis, AP view, and x-ray of the right hip, AP and frog-leg views. Comparison: None. Findings: There is no evidence of acute fracture or dislocation. There is no significant bone or joint abnormality. Sacroiliac joints show minimal sclerosis, likely degenerative. There is lower lumbar spine facet arthropathy and degenerative spurs. The pelvis shows no significant abnormality. There is a surgical clip overlying the left groin region. Impression: 1: X-rays of the pelvis and both hips show no acute fracture or dislocation. 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 Dictated on workstation # [id number] Dict: 12/28/176 Trans: 12/28/172201 [facility] [id number] Interpreted by: VIK BARBOZA MD Electronically signed by: Reviewed: Reviewed by Me Departure Impression Impression: Primary Impression: Right hip pain Additional Impression: Hyperglycemia due to type 1 diabetes mellitus Disposition: 01 HOME, SELF-CARE Condition: Stable Departure-Patient Inst. Decision time for Depature: 21:40 Referrals: CHRISTOPH PAEZ MD (PCP/Family) Primary Care Physician Patient Instructions: Hip Pain (DC) Add. Discharge Instructions: Alternate heat and ice on right hip Use cane for ambulation. Follow-up with Dr. Paez if pain is not improving. Use Aleve 2 tablets twice daily with food for anti-inflammatory. Return to emergency department for new problems. All discharge instructions reviewed with patient and/or family. Voiced understanding. Copy Copies To 1: CHRISTOPH PAEZ MDEELIZABETH Dec 28, 2017 21:16
[2017-12-28 21:58] VITALS: BP 113/95
--- NOTE | 2017-12-28 22:03 | Diagnostic Imaging Report ---
Clinical indication: Patient complains of pain in right hip x 3 days after his dog jumped in his lap. Exam: X-ray of the pelvis, AP view, and x-ray of the right hip, AP and frog-leg views. Comparison: None. Findings: There is no evidence of acute fracture or dislocation. There is no significant bone or joint abnormality. Sacroiliac joints show minimal sclerosis, likely degenerative. There is lower lumbar spine facet arthropathy and degenerative spurs. The pelvis shows no significant abnormality. There is a surgical clip overlying the left groin region. Impression: 1: X-rays of the pelvis and both hips show no acute fracture or dislocation. 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 Dictated by: Dictated on workstation # [id number]
== END 2017-12-28 21:58 | disposition home or self-care (01) ==
LOC: EDUNIT# 20:48 → ER 20:50
DX: M25.551 Pain in right hip (principal); E10.65 Type 1 diabetes mellitus with hyperglycemia; J44.9 Chronic obstructive pulmonary disease, unspecified; E78.00 Pure hypercholesterolemia, unspecified; I10 Essential (primary) hypertension; E10.40 Type 1 diabetes mellitus with diabetic neuropathy, unspecified; K21.9 Gastro-esophageal reflux disease without esophagitis; I25.10 Atherosclerotic heart disease of native coronary artery without angina pectoris; Z79.82 Long term (current) use of aspirin; Z79.4 Long term (current) use of insulin; Z95.1 Presence of aortocoronary bypass graft; Z95.5 Presence of coronary angioplasty implant and graft; Z82.49 Family history of ischemic heart disease and other diseases of the circulatory system; W18.30XA Fall on same level, unspecified, initial encounter
CPT/HCPCS: 82962

== ENCOUNTER 2017-12-31 11:30 | Inpatient (IN) | payer MEDICARE ==
[2017-12-31] VITALS (17 sets, daily range): BP systolic 87–128; BP diastolic 48–89
[~2017-12-31] VITALS: Ht 185.4 cm; Wt 65.9 kg
--- OUTSIDE RECORDS SUMMARY | 2017-12-31 11:38 | XMS REPORT | Continuity of Care Document ---
Author Author [facility] Organization [facility] Address Unknown Phone Unavailable Allergies Active Description Code Type Severity Reaction Onset Reported/Identified Relationship to Patient Clinical Status Yes No Known Drug Allergies [id number] Drug Allergy Unknown N/A 02/20/2013 Medications There is no data. Problems Date Dx Coded Attending Type Code Diagnosis Diagnosed By 11/15/2014 MIHIR TAYLOR NATASHA K Ot 250.00 11/15/2014 MIHIR TAYLOR, NATASHA K Ot 272.4 11/15/2014 MIHIR DO, NATASHA K Ot 401.9 11/15/2014 [facility], NATASHA K Ot 414.00 11/15/2014 [facility] , NATASHA K Ot 786.50 11/15/2014 MIHIR DO, NATASHA K Ot V45.81 11/15/2014 [facility] DO, NATASHA K Ot V45.82 11/15/2014 MIHIR , NATASHA K Ot V58.69 05/19/2015 ILEANA REYNOSO, [...] Pretty Ot 305.1 07/18/2015 COOPER REYNOSO, SUSAN Pretty Ot 401.9 07/18/2015 COOPER REYNOSO, SUSAN Pretty Ot 411.1 07/18/2015 COOPER REYNOSO, SUSAN J Ot 414.01 07/18/2015 COOPER REYNOSO, SUSAN Pretty Ot 414.02 07/18/2015 COOPER REYNOSO, SUSAN J [...] SUSAN J Ot Z91.19 07/18/2015 COOPER REYNOSO, USSAN Pretty Ot Z95.1 07/18/2015 COOPER REYNOSO, SUSAN J [...] REYNOSO, CHRISTOPH R Ot E11.65 10/26/2015 ILEANA REYNOSO, CHRISTOPH R Ot E78.0 10/26/2015 ILEANA REYNOSO, CHRISTOPH R Ot F32.9 10/26/2015 ILEANA [...] R Ot I25.10 ATHSCL HEART DISEASE OF [place] CORONARY 05/05/2016 CHRISTOPH TEJEDA MD Ot K21.9 GASTRO-ESOPHAGEAL REFLUX DISEASE WITHOUT 05/05/2016 CHRISTOPH TEJEDA MD, Ot M54.9 DORSALGIA, UNSPECIFIED 05/05/2016 CHRISTOPH TEJEDA MD, Ot Z87.891 PERSONAL HISTORY OF NICOTINE DEPENDENCE 05/05/2016 CHRISTOPH TEJEDA MD, Ot Z91.14 PATIENT'S OTHER NONCOMPLIANCE WITH MEDIC 05/05/2016 CHRISTOPH TEJEDA MD Ot Z95.1 PRESENCE OF AORTOCORONARY BYPASS GRAFT 05/05/2016 CHRISTOPH TEJEDA MD Ot Z95.5 PRESENCE OF CORONARY ANGIOPLASTY IMPLANT 10/01/2016 CHRISTOPH TEJEDA MD Ot N52.9 MALE ERECTILE DYSFUNCTION, UNSPECIFIED 10/24/2016 CHRISTOPH TEJEDA MD, Ot N52.9 MALE ERECTILE DYSFUNCTION, UNSPECIFIED 08/03/2017 REYNA LIZ MD, Ot E11.10 TYPE 2 DIABETES MELLITUS WITH KETOACIDOS 08/03/2017 REYNA LIZ MD, Ot E11.40 TYPE 2 DIABETES MELLITUS WITH DIABETIC N 08/03/2017 REYNA LIZ MD, Ot E78.00 PURE HYPERCHOLESTEROLEMIA, UNSPECIFIED 08/03/2017 REYNA LIZ MD, Ot G89.29 OTHER CHRONIC PAIN 08/03/2017 REYNA LIZ MD, Ot I10 ESSENTIAL (PRIMARY) HYPERTENSION 08/03/2017 REYNA LIZ MD, Ot 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, UNSP, W OTH ANG 08/03/2017 REYNA LIZ MD, Ot I95.9 HYPOTENSION, UNSPECIFIED 08/03/2017 REYNA LIZ MD, Ot J44.9 CHRONIC OBSTRUCTIVE PULMONARY DISEASE, U 08/03/2017 REYNA LIZ MD, Ot K21.9 GASTRO-ESOPHAGEAL REFLUX DISEASE WITHOUT 08/03/2017 REYNA LIZ MD, Ot M19.91 PRIMARY OSTEOARTHRITIS, UNSPECIFIED SITE 08/03/2017 REYNA LIZ MD, Ot M54.9 DORSALGIA, UNSPECIFIED 08/03/2017 REYNA LIZ MD, Ot N17.9 ACUTE KIDNEY FAILURE, UNSPECIFIED 08/03/2017 REYNA LIZ MD, Ot Z79.4 VENEREAL DISEASE INVESTIGATOR (CURRENT) USE OF INSULIN 08/03/2017 REYNA LIZ MD Ot Z87.891 PERSONAL HISTORY OF NICOTINE DEPENDENCE 08/03/2017 REYNA LIZ MD Ot Z91.14 PATIENT'S OTHER NONCOMPLIANCE WITH MEDIC 08/03/2017 REYNA LIZ MD Ot Z95.1 PRESENCE OF AORTOCORONARY BYPASS GRAFT 08/03/2017 REYNA LIZ MD Ot Z95.5 PRESENCE OF CORONARY ANGIOPLASTY IMPLANT 08/09/2017 CELSO HACKETT MD Ot E11.40 TYPE 2 DIABETES MELLITUS WITH DIABETIC N 08/09/2017 CELSO HACKETT MD Ot E11.65 TYPE 2 DIABETES MELLITUS WITH HYPERGLYCE 08/09/2017 CELSO HACKETT MD Ot E78.00 PURE HYPERCHOLESTEROLEMIA, UNSPECIFIED 08/09/2017 CELSO HACKETT MD Ot I10 ESSENTIAL (PRIMARY) HYPERTENSION 08/09/2017 CELSO HACKETT MD Ot I25.10 ATHSCL HEART DISEASE OF [place] CORONARY 08/09/2017 CELSO HACKETT MD Ot J44.9 CHRONIC OBSTRUCTIVE PULMONARY DISEASE, U 08/09/2017 CELSO HACKETT MD Ot K21.9 GASTRO-ESOPHAGEAL REFLUX DISEASE WITHOUT 08/09/2017 CELSO HACKETT MD Ot R73.09 OTHER ABNORMAL GLUCOSE 08/09/2017 CELSO HACKETT MD Ot Z79.4 JAIL (CURRENT) USE OF INSULIN 08/09/2017 CELSO HACKETT MD Ot Z79.82 VENEREAL DISEASE INVESTIGATOR (CURRENT) USE OF ASPIRIN 08/09/2017 CELSO HACKETT MD Ot Z87.891 PERSONAL HISTORY OF NICOTINE DEPENDENCE 08/09/2017 CELSO HACKETT MD Ot Z95.1 PRESENCE OF AORTOCORONARY BYPASS GRAFT 08/09/2017 CELSO HACKETT MD Ot Z95.5 PRESENCE OF CORONARY ANGIOPLASTY IMPLANT 08/27/2017 SUSAN GAMBOA MD Ot E11.9 TYPE 2 DIABETES MELLITUS WITHOUT COMPLIC 08/27/2017 SUSAN GAMBOA MD Ot E78.2 MIXED HYPERLIPIDEMIA 08/27/2017 SUSAN GAMBOA MD Ot I10 ESSENTIAL (PRIMARY) HYPERTENSION 08/27/2017 SUSAN GAMBOA MD Ot I25.10 ATHSCL HEART DISEASE OF [place] CORONARY 08/27/2017 SUSAN GAMBOA MD Ot I34.0 NONRHEUMATIC MITRAL (VALVE) INSUFFICIENC 08/27/2017 SUSAN GAMBOA MD Ot I70.0 ATHEROSCLEROSIS OF [place] 08/27/2017 SUSAN GAMBOA MD Ot I70.213 ATHSCL [place] ARTERIES OF EXTRM W INTRMT 08/27/2017 SUSAN GAMBOA MD Ot I72.3 ANEURYSM OF ILIAC ARTERY 08/27/2017 SUSAN GAMBOA MD Ot Z79.4 JAIL (CURRENT) USE OF INSULIN 08/27/2017 SUSAN GAMBOA MD Ot Z79.82 VENEREAL DISEASE INVESTIGATOR (CURRENT) USE OF ASPIRIN 08/27/2017 SUSAN GAMBOA MD Ot Z87.891 PERSONAL HISTORY OF NICOTINE DEPENDENCE 08/27/2017 SUSAN GAMBOA MD Ot Z91.14 PATIENT'S OTHER NONCOMPLIANCE WITH MEDIC 08/27/2017 SUSAN GAMBOA MD Ot Z95.5 PRESENCE OF CORONARY ANGIOPLASTY IMPLANT 09/11/2017 SUSAN GAMBOA MD Ot E11.9 TYPE 2 DIABETES MELLITUS WITHOUT COMPLIC 09/11/2017 SUSAN GAMBOA MD Ot E78.2 MIXED HYPERLIPIDEMIA 09/11/2017 SUSAN GAMBOA MD Ot I10 ESSENTIAL (PRIMARY) HYPERTENSION 09/11/2017 SUSAN GAMBOA MD Ot I25.10 ATHSCL HEART DISEASE OF [place] CORONARY 09/11/2017 SUSAN GAMBOA MD Ot I34.0 NONRHEUMATIC MITRAL (VALVE) INSUFFICIENC 09/11/2017 SUSAN GAMBOA MD Ot I70.0 ATHEROSCLEROSIS OF [place] 09/11/2017 SUSAN GAMBOA MD Ot I70.213 ATHSCL [place] ARTERIES OF EXTRM W INTRMT 09/11/2017 SUSAN GAMBOA MD Ot I72.3 ANEURYSM OF ILIAC ARTERY 09/11/2017 SUSAN GAMBOA MD Ot Z79.4 JAIL (CURRENT) USE OF INSULIN 09/11/2017 SUSAN GAMBOA MD Ot Z79.82 JAIL (CURRENT) USE OF ASPIRIN 09/11/2017 SUSAN GAMBOA MD Ot Z87.891 PERSONAL HISTORY OF NICOTINE DEPENDENCE 09/11/2017 SUSAN GAMBOA MD Ot Z91.14 PATIENT'S OTHER NONCOMPLIANCE WITH MEDIC 09/11/2017 SUSAN GAMBOA MD Ot Z95.5 PRESENCE OF CORONARY ANGIOPLASTY IMPLANT 09/24/2017 SUSAN GAMBOA MD Ot I70.203 UNSP ATHSCL [place] ARTERIES OF EXTREMITI 09/24/2017 SUSAN GAMBOA MD Ot I72.3 ANEURYSM OF ILIAC ARTERY 09/24/2017 SUSAN GAMBOA MD Ot I77.1 STRICTURE OF ARTERY 10/16/2017 SUSAN GAMBOA MD Ot E11.9 TYPE 2 DIABETES MELLITUS WITHOUT COMPLIC 10/16/2017 SUSAN GAMBOA MD Ot E78.2 MIXED HYPERLIPIDEMIA 10/16/2017 SUSAN GAMBOA MD Ot I10 ESSENTIAL (PRIMARY) HYPERTENSION 10/16/2017 SUSAN GAMBOA MD Ot I25.10 ATHSCL HEART DISEASE OF [place] CORONARY 10/16/2017 SUSAN GAMBOA MD Ot I34.0 NONRHEUMATIC MITRAL (VALVE) INSUFFICIENC 10/16/2017 SUSAN GAMBOA MD Ot I70.0 ATHEROSCLEROSIS OF [place] 10/16/2017 SUSAN GAMBOA MD Ot I70.213 ATHSCL [place] ARTERIES OF EXTRM W INTRMT 10/16/2017 SUSAN GAMBOA MD Ot I72.3 ANEURYSM OF ILIAC ARTERY 10/16/2017 SUSAN GAMBOA MD Ot Z79.4 JAIL (CURRENT) USE OF INSULIN 10/16/2017 SUSAN GAMBOA MD Ot Z79.82 JAIL (CURRENT) USE OF ASPIRIN 10/16/2017 SUSAN GAMBOA MD Ot Z87.891 PERSONAL HISTORY OF NICOTINE DEPENDENCE 10/16/2017 SUSAN GAMBOA MD Ot Z91.14 PATIENT'S OTHER NONCOMPLIANCE WITH MEDIC 10/16/2017 SUSAN GAMBOA MD Ot Z95.5 PRESENCE OF CORONARY ANGIOPLASTY IMPLANT 12/30/2017 ELIZABETH WOLFF Ot E10.40 TYPE 1 DIABETES MELLITUS WITH DIABETIC N 12/30/2017 ELIZABETH WOLFF Ot E10.65 TYPE 1 DIABETES MELLITUS WITH HYPERGLYCE 12/30/2017 ELIZABETH WOLFF Ot E78.00 PURE HYPERCHOLESTEROLEMIA, UNSPECIFIED 12/30/2017 ELIZABETH WOLFF Ot I10 ESSENTIAL (PRIMARY) HYPERTENSION 12/30/2017 ELIZABETH WOLFF Ot I25.10 ATHSCL HEART DISEASE OF [place] CORONARY 12/30/2017 ELIZABETH WOLFF Ot J44.9 CHRONIC OBSTRUCTIVE PULMONARY DISEASE, U 12/30/2017 ELIZABETH WOLFF Ot K21.9 GASTRO-ESOPHAGEAL REFLUX DISEASE WITHOUT 12/30/2017 ELIZABETH WOLFF Ot M25.551 PAIN IN RIGHT HIP 12/30/2017 ELIZABETH WOLFF Ot W18.30XA FALL ON SAME LEVEL, UNSPECIFIED, INITIAL 12/30/2017 ELIZABETH WOLFF Ot Z79.4 JAIL (CURRENT) USE OF INSULIN 12/30/2017 ELIZABETH WOLFFP Ot Z79.82 VENEREAL DISEASE INVESTIGATOR (CURRENT) USE OF ASPIRIN 12/30/2017 ELIZABETH WOLFFP Ot Z82.49 FAMILY HX OF ISCHEM HEART DIS AND OTH DI 12/30/2017 ELIZABETH WOLFF Ot Z95.1 PRESENCE OF AORTOCORONARY BYPASS GRAFT 12/30/2017 ELIZABETH WOLFFP Ot Z95.5 PRESENCE OF CORONARY ANGIOPLASTY IMPLANT Procedures There is no data. Results Test Result Range Serum or plasma testosterone measurement (mass/volume) - 09/30/16 12:48 Testosterone [mass or moles/volume] in serum or plasma 193 % 241-827 Complete blood count (CBC) with automated white blood cell (WBC) differential - 08/01/17 18:25 Blood leukocytes automated count (number/volume) 12.4 10*3/uL 4.3-11.0 Blood erythrocytes automated count (number/volume) 5.43 10*6/uL 4.35-5.85 Venous blood hemoglobin measurement (mass/volume) 15.3 g/dL 13.3-17.7 Blood hematocrit (volume fraction) 44 % 40-54 Automated erythrocyte mean corpuscular volume 81 [foz_us] 80-99 Automated erythrocyte mean corpuscular hemoglobin (mass per erythrocyte) 28 pg 25-34 Automated erythrocyte mean corpuscular hemoglobin concentration measurement ( mass/volume) 35 g/dL 32-36 Automated erythrocyte distribution width ratio 12.3 % 10.0-14.5 Automated blood platelet count (count/volume) 427 10*3/uL 130-400 Automated blood platelet mean volume measurement 10.3 [foz_us] 7.4-10.4 Automated blood neutrophils/100 leukocytes 60 % 42-75 Automated blood lymphocytes/100 leukocytes 31 % 12-44 Blood monocytes/100 leukocytes 8 % 0-12 Automated blood eosinophils/100 leukocytes 1 % 0-10 Automated blood basophils/100 leukocytes 1 % 0-10 Blood neutrophils automated count (number/volume) 7.4 10*3 1.8-7.8 Blood lymphocytes automated count (number/volume) 3.8 10*3 1.0-4.0 Blood monocytes automated count (number/volume) 1.0 10*3 0.0-1.0 Automated eosinophil count 0.1 10*3/uL 0.0-0.3 Automated blood basophil count (count/volume) 0.1 10*3/uL 0.0-0.1 Comprehensive metabolic panel - 08/01/17 18:25 Serum or plasma sodium measurement (moles/volume) 132 mmol/L 135-145 Serum or plasma potassium measurement (moles/volume) 5.4 mmol/L 3.6-5.0 Serum or plasma chloride measurement (moles/volume) 97 mmol/L 98-107 Carbon dioxide 20 mmol/L 21-32 Serum or plasma anion gap determination (moles/volume) 15 mmol/L 5-14 Serum or plasma urea nitrogen measurement (mass/volume) 26 mg/dL 7-18 Serum or plasma creatinine measurement (mass/volume) 1.36 mg/dL 0.60-1.30 Serum or plasma urea nitrogen/creatinine mass ratio 19 NRG Serum or plasma creatinine measurement with calculation of estimated glomerular filtration rate 54 NRG Serum or plasma glucose measurement (mass/volume) 424 mg/dL 70-105 Serum or plasma calcium measurement (mass/volume) 10.2 mg/dL 8.5-10.1 Serum or plasma total bilirubin measurement (mass/volume) 0.3 mg/dL 0.1-1.0 Serum or plasma alkaline phosphatase measurement (enzymatic activity/volume) 130 U/L 40-136 Serum or plasma aspartate aminotransferase measurement (enzymatic activity/ volume) 10 U/L 5-34 Serum or plasma alanine aminotransferase measurement (enzymatic activity/volume ) 17 U/L 0-55 Serum or plasma protein measurement (mass/volume) 7.9 g/dL 6.4-8.2 Serum or plasma albumin measurement (mass/volume) 4.3 g/dL 3.2-4.5 Magnesium - 08/01/17 18:25 Magnesium 2.3 mg/dL 1.8-2.4 Serum or plasma creatine kinase measurement (enzymatic activity/volume) - 08/01 18:25 Serum or plasma creatine kinase measurement (enzymatic activity/volume) 33 U/L 30-200 Serum or plasma creatine kinase MB measurement (enzymatic activity/volume) - 18:25 Serum or plasma creatine kinase MB measurement (enzymatic activity/volume) 0.9 ng/mL <6.6 Serum or plasma troponin i.cardiac measurement (mass/volume) - 08/01/17 18:25 Serum or plasma troponin i.cardiac measurement (mass/volume) < ng/ mL <0.30 Myoglobin, serum - 08/01/17 18:25 Myoglobin, serum 33.1 ng/mL 10.0-92.0 PT panel in platelet poor plasma by coagulation assay - 08/01/17 18:25 Prothrombin time (PT) in platelet poor plasma by coagulation assay 12.0 s 12.2-14.7 INR in platelet poor plasma or blood by coagulation assay 0.9 0.8-1.4 Activated partial thromboplastin time (aPTT) in platelet poor plasma bycoagulation assay - 08/01/17 18:25 Activated partial thromboplastin time (aPTT) in platelet poor plasma bycoagulation assay 23 s 24-35 Serum or plasma lithium measurement (moles/volume) - 08/01/17 18:25 BNP level 68.1 pg/mL <100.0 Urine drug screening test - 08/01/17 18:42 Urine phencyclidine detection by screening method NEGATIVE NEGATIVE Urine benzodiazepines detection by screening method NEGATIVE NEGATIVE Urine cocaine detection NEGATIVE NEGATIVE Urine amphetamines detection by screening method NEGATIVE NEGATIVE Urine methamphetamine detection by screening method NEGATIVE NEGATIVE Urine cannabinoids detection by screening method NEGATIVE NEGATIVE Urine opiates detection by screening method POSITIVE NEGATIVE Urine barbiturates detection POSITIVE NEGATIVE Screening urine tricyclic antidepressants detection NEGATIVE NEGATIVE Urine methadone detection by screening method NEGATIVE NEGATIVE Urine oxycodone detection POSITIVE NEGATIVE Urine propoxyphene detection NEGATIVE NEGATIVE Complete urinalysis with reflex to culture - 08/01/17 18:42 Urine color determination YELLOW NRG Urine clarity determination CLEAR NRG Urine pH measurement by test strip 5 5-9 Specific gravity of urine by test strip 1.015 1.016- 1.022 Urine protein assay by test strip, semi-quantitative 1+ NEGATIVE Urine glucose detection by automated test strip 4+ NEGATIVE Erythrocytes detection in urine sediment by light microscopy NEGATIVE NEGATIVE Urine ketones detection by automated test strip 3+ NEGATIVE Urine nitrite detection by test strip NEGATIVE NEGATIVE Urine total bilirubin detection by test strip 1+ NEGATIVE Urine urobilinogen measurement by automated test strip (mass/volume) 1 mg/dL NORMAL Urine leukocyte esterase detection by dipstick 1+ NEGATIVE Automated urine sediment erythrocyte count by microscopy (number/high power field) NONE NRG Automated urine sediment leukocyte count by microscopy (number/high power field ) [HPF] NRG Bacteria detection in urine sediment by light microscopy MODERATE NRG Crystals detection in urine sediment by light microscopy NONE NRG Casts detection in urine sediment by light microscopy NONE NRG Mucus detection in urine sediment by light microscopy SMALL NRG Complete urinalysis with reflex to culture YES NRG Bacterial urine culture - 08/01/17 18:42 URINE CULTURE RESULTS MORE THAN 3 ISOLATES NRG Capillary blood glucose measurement by glucometer (mass/volume) - 08/01/17 21: 38 Capillary blood glucose measurement by glucometer (mass/volume) 216 mg/dL 70-110 Automated blood complete blood count (hemogram) panel - 08/01/17 21:39 Blood leukocytes automated count (number/volume) 11.6 10*3/uL 4.3-11.0 Blood erythrocytes automated count (number/volume) 4.85 10*6/uL 4.35-5.85 Venous blood hemoglobin measurement (mass/volume) 13.8 g/dL 13.3-17.7 Blood hematocrit (volume fraction) 40 % 40-54 Automated erythrocyte mean corpuscular volume 83 [foz_us] 80-99 Automated erythrocyte mean corpuscular hemoglobin (mass per erythrocyte) 29 pg 25-34 Automated erythrocyte mean corpuscular hemoglobin concentration measurement ( mass/volume) 34 g/dL 32-36 Automated erythrocyte distribution width ratio 12.2 % 10.0-14.5 Automated blood platelet count (count/volume) 358 10*3/uL 130-400 Automated blood platelet mean volume measurement 10.2 [foz_us] 7.4-10.4 Whole blood basic metabolic panel - 08/01/17 21:39 Serum or plasma sodium measurement (moles/volume) 135 mmol/L 135-145 Serum or plasma potassium measurement (moles/volume) 4.0 mmol/L 3.6-5.0 Serum or plasma chloride measurement (moles/volume) 104 mmol/L 98-107 Carbon dioxide 22 mmol/L 21-32 Serum or plasma anion gap determination (moles/volume) 9 mmol/L 5-14 Serum or plasma urea nitrogen measurement (mass/volume) 23 mg/dL 7-18 Serum or plasma creatinine measurement (mass/volume) 0.99 mg/dL 0.60-1.30 Serum or plasma urea nitrogen/creatinine mass ratio 23 NRG Serum or plasma creatinine measurement with calculation of estimated glomerular filtration rate > NRG Serum or plasma glucose measurement (mass/volume) 229 mg/dL 70-105 Serum or plasma calcium measurement (mass/volume) 8.9 mg/dL 8.5-10.1 Hemoglobin A1c - 08/01/17 21:39 Hemoglobin A1c 11.3 % 4.5-6.2 Methicillin resistant Staphylococcus aureus (MRSA) screening culture - 21:45 Methicillin resistant Staphylococcus aureus (MRSA) screening culture NEG NRG Capillary blood glucose measurement by glucometer (mass/volume) - 08/01/17 22: 45 Capillary blood glucose measurement by glucometer (mass/volume) 233 mg/dL 70-110 Whole blood basic metabolic panel - 08/01/17 23:35 Serum or plasma sodium measurement (moles/volume) 138 mmol/L 135-145 Serum or plasma potassium measurement (moles/volume) 4.0 mmol/L 3.6-5.0 Serum or plasma chloride measurement (moles/volume) 108 mmol/L 98-107 Carbon dioxide 22 mmol/L 21-32 Serum or plasma anion gap determination (moles/volume) 8 mmol/L 5-14 Serum or plasma urea nitrogen measurement (mass/volume) 20 mg/dL 7-18 Serum or plasma creatinine measurement (mass/volume) 0.90 mg/dL 0.60-1.30 Serum or plasma urea nitrogen/creatinine mass ratio 22 NRG Serum or plasma creatinine measurement with calculation of estimated glomerular filtration rate > NRG Serum or plasma glucose measurement (mass/volume) 208 mg/dL 70-105 Serum or plasma calcium measurement (mass/volume) 8.8 mg/dL 8.5-10.1 Capillary blood glucose measurement by glucometer (mass/volume) - 08/01/17 23: 39 Capillary blood glucose measurement by glucometer (mass/volume) 220 mg/dL 70-110 Capillary blood glucose measurement by glucometer (mass/volume) - 08/02/17 00: 36 Capillary blood glucose measurement by glucometer (mass/volume) 153 mg/dL 70-110 Complete blood count (CBC) with automated white blood cell (WBC) differential - 08/02/17 03:43 Blood leukocytes automated count (number/volume) 9.5 10*3/uL 4.3-11.0 Blood erythrocytes automated count (number/volume) 4.39 10*6/uL 4.35-5.85 Venous blood hemoglobin measurement (mass/volume) 12.5 g/dL 13.3-17.7 Blood hematocrit (volume fraction) 37 % 40-54 Automated erythrocyte mean corpuscular volume 84 [foz_us] 80-99 Automated erythrocyte mean corpuscular hemoglobin (mass per erythrocyte) 29 pg 25-34 Automated erythrocyte mean corpuscular hemoglobin concentration measurement ( mass/volume) 34 g/dL 32-36 Automated erythrocyte distribution width ratio 12.2 % 10.0-14.5 Automated blood platelet count (count/volume) 340 10*3/uL 130-400 Automated blood platelet mean volume measurement 10.0 [foz_us] 7.4-10.4 Automated blood neutrophils/100 leukocytes 46 % 42-75 Automated blood lymphocytes/100 leukocytes 43 % 12-44 Blood monocytes/100 leukocytes 9 % 0-12 Automated blood eosinophils/100 leukocytes 2 % 0-10 Automated blood basophils/100 leukocytes 1 % 0-10 Blood neutrophils automated count (number/volume) 4.4 10*3 1.8-7.8 Blood lymphocytes automated count (number/volume) 4.1 10*3 1.0-4.0 Blood monocytes automated count (number/volume) 0.9 10*3 0.0-1.0 Automated eosinophil count 0.2 10*3/uL 0.0-0.3 Automated blood basophil count (count/volume) 0.1 10*3/uL 0.0-0.1 Comprehensive metabolic panel - 08/02/17 03:43 Serum or plasma sodium measurement (moles/volume) 139 mmol/L 135-145 Serum or plasma potassium measurement (moles/volume) 4.5 mmol/L 3.6-5.0 Serum or plasma chloride measurement (moles/volume) 110 mmol/L 98-107 Carbon dioxide 22 mmol/L 21-32 Serum or plasma anion gap determination (moles/volume) 7 mmol/L 5-14 Serum or plasma urea nitrogen measurement (mass/volume) 18 mg/dL 7-18 Serum or plasma creatinine measurement (mass/volume) 0.77 mg/dL 0.60-1.30 Serum or plasma urea nitrogen/creatinine mass ratio 23 NRG Serum or plasma creatinine measurement with calculation of estimated glomerular filtration rate > NRG Serum or plasma glucose measurement (mass/volume) 137 mg/dL 70-105 Serum or plasma calcium measurement (mass/volume) 8.4 mg/dL 8.5-10.1 Serum or plasma total bilirubin measurement (mass/volume) 0.3 mg/dL 0.1-1.0 Serum or plasma alkaline phosphatase measurement (enzymatic activity/volume) 87 U/L 40-136 Serum or plasma aspartate aminotransferase measurement (enzymatic activity/ volume) 11 U/L 5-34 Serum or plasma alanine aminotransferase measurement (enzymatic activity/volume ) 11 U/L 0-55 Serum or plasma protein measurement (mass/volume) 5.5 g/dL 6.4-8.2 Serum or plasma albumin measurement (mass/volume) 3.1 g/dL 3.2-4.5 Serum or plasma phosphate measurement (mass/volume) - 08/02/17 03:43 Serum or plasma phosphate measurement (mass/volume) 3.7 mg/dL 2.3-4.7 Magnesium - 08/02/17 03:43 Magnesium 2.0 mg/dL 1.8-2.4 Capillary blood glucose measurement by glucometer (mass/volume) - 08/02/17 03: 46 Capillary blood glucose measurement by glucometer (mass/volume) 134 mg/dL 70-110 Capillary blood glucose measurement by glucometer (mass/volume) - 08/02/17 08: 21 Capillary blood glucose measurement by glucometer (mass/volume) 204 mg/dL 70-110 Capillary blood glucose measurement by glucometer (mass/volume) - 08/02/17 09: 25 Capillary blood glucose measurement by glucometer (mass/volume) 235 mg/dL 70-110 Capillary blood glucose measurement by glucometer (mass/volume) - 08/02/17 12: 01 Capillary blood glucose measurement by glucometer (mass/volume) 253 mg/dL 70-110 Capillary blood glucose measurement by glucometer (mass/volume) - 08/02/17 16: 21 Capillary blood glucose measurement by glucometer (mass/volume) 237 mg/dL 70-110 Capillary blood glucose measurement by glucometer (mass/volume) - 08/02/17 19: 36 Capillary blood glucose measurement by glucometer (mass/volume) 197 mg/dL 70-110 Capillary blood glucose measurement by glucometer (mass/volume) - 08/02/17 23: 47 Capillary blood glucose measurement by glucometer (mass/volume) 190 mg/dL 70-110 Capillary blood glucose measurement by glucometer (mass/volume) - 08/03/17 04: 18 Capillary blood glucose measurement by glucometer (mass/volume) 202 mg/dL 70-110 Complete blood count (CBC) with automated white blood cell (WBC) differential - 08/03/17 05:00 Blood leukocytes automated count (number/volume) 8.4 10*3/uL 4.3-11.0 Blood erythrocytes automated count (number/volume) 4.47 10*6/uL 4.35-5.85 Venous blood hemoglobin measurement (mass/volume) 12.8 g/dL 13.3-17.7 Blood hematocrit (volume fraction) 38 % 40-54 Automated erythrocyte mean corpuscular volume 84 [foz_us] 80-99 Automated erythrocyte mean corpuscular hemoglobin (mass per erythrocyte) 29 pg 25-34 Automated erythrocyte mean corpuscular hemoglobin concentration measurement ( mass/volume) 34 g/dL 32-36 Automated erythrocyte distribution width ratio 12.3 % 10.0-14.5 Automated blood platelet count (count/volume) 322 10*3/uL 130-400 Automated blood platelet mean volume measurement 10.1 [foz_us] 7.4-10.4 Automated blood neutrophils/100 leukocytes 43 % 42-75 Automated blood lymphocytes/100 leukocytes 45 % 12-44 Blood monocytes/100 leukocytes 8 % 0-12 Automated blood eosinophils/100 leukocytes 3 % 0-10 Automated blood basophils/100 leukocytes 1 % 0-10 Blood neutrophils automated count (number/volume) 3.6 10*3 1.8-7.8 Blood lymphocytes automated count (number/volume) 3.8 10*3 1.0-4.0 Blood monocytes automated count (number/volume) 0.7 10*3 0.0-1.0 Automated eosinophil count 0.3 10*3/uL 0.0-0.3 Automated blood basophil count (count/volume) 0.1 10*3/uL 0.0-0.1 Whole blood basic metabolic panel - 08/03/17 05:00 Serum or plasma sodium measurement (moles/volume) 138 mmol/L 135-145 Serum or plasma potassium measurement (moles/volume) 3.6 mmol/L 3.6-5.0 Serum or plasma chloride measurement (moles/volume) 108 mmol/L 98-107 Carbon dioxide 20 mmol/L 21-32 Serum or plasma anion gap determination (moles/volume) 10 mmol/L 5-14 Serum or plasma urea nitrogen measurement (mass/volume) 16 mg/dL 7-18 Serum or plasma creatinine measurement (mass/volume) 0.77 mg/dL 0.60-1.30 Serum or plasma urea nitrogen/creatinine mass ratio 21 NRG Serum or plasma creatinine measurement with calculation of estimated glomerular filtration rate > NRG Serum or plasma glucose measurement (mass/volume) 197 mg/dL 70-105 Serum or plasma calcium measurement (mass/volume) 8.9 mg/dL 8.5-10.1 Serum or plasma phosphate measurement (mass/volume) - 08/03/17 05:00 Serum or plasma phosphate measurement (mass/volume) 4.2 mg/dL 2.3-4.7 Magnesium - 08/03/17 05:00 Magnesium 2.0 mg/dL 1.8-2.4 Capillary blood glucose measurement by glucometer (mass/volume) - 08/03/17 07: 36 Capillary blood glucose measurement by glucometer (mass/volume) 157 mg/dL 70-110 Capillary blood glucose measurement by glucometer (mass/volume) - 08/09/17 15: 40 Capillary blood glucose measurement by glucometer (mass/volume) 440 mg/dL 70-110 Complete blood count (CBC) with automated white blood cell (WBC) differential - 08/09/17 15:40 Blood leukocytes automated count (number/volume) 10.7 10*3/uL 4.3-11.0 Blood erythrocytes automated count (number/volume) 5.15 10*6/uL 4.35-5.85 Venous blood hemoglobin measurement (mass/volume) 14.6 g/dL 13.3-17.7 Blood hematocrit (volume fraction) 42 % 40-54 Automated erythrocyte mean corpuscular volume 82 [foz_us] 80-99 Automated erythrocyte mean corpuscular hemoglobin (mass per erythrocyte) 28 pg 25-34 Automated erythrocyte mean corpuscular hemoglobin concentration measurement ( mass/volume) 35 g/dL 32-36 Automated erythrocyte distribution width ratio 12.2 % 10.0-14.5 Automated blood platelet count (count/volume) 420 10*3/uL 130-400 Automated blood platelet mean volume measurement 10.5 [foz_us] 7.4-10.4 Automated blood neutrophils/100 leukocytes 52 % 42-75 Automated blood lymphocytes/100 leukocytes 37 % 12-44 Blood monocytes/100 leukocytes 8 % 0-12 Automated blood eosinophils/100 leukocytes 2 % 0-10 Automated blood basophils/100 leukocytes 1 % 0-10 Blood neutrophils automated count (number/volume) 5.6 10*3 1.8-7.8 Blood lymphocytes automated count (number/volume) 3.9 10*3 1.0-4.0 Blood monocytes automated count (number/volume) 0.9 10*3 0.0-1.0 Automated eosinophil count 0.2 10*3/uL 0.0-0.3 Automated blood basophil count (count/volume) 0.2 10*3/uL 0.0-0.1 PT panel in platelet poor plasma by coagulation assay - 08/09/17 15:40 Prothrombin time (PT) in platelet poor plasma by coagulation assay 12.2 s 12.2-14.7 INR in platelet poor plasma or blood by coagulation assay 0.9 0.8-1.4 Activated partial thromboplastin time (aPTT) in platelet poor plasma bycoagulation assay - 08/09/17 15:40 Activated partial thromboplastin time (aPTT) in platelet poor plasma bycoagulation assay 24 s 24-35 Comprehensive metabolic panel - 08/09/17 15:40 Serum or plasma sodium measurement (moles/volume) 132 mmol/L 135-145 Serum or plasma potassium measurement (moles/volume) 4.5 mmol/L 3.6-5.0 Serum or plasma chloride measurement (moles/volume) 95 mmol/L 98-107 Carbon dioxide 25 mmol/L 21-32 Serum or plasma anion gap determination (moles/volume) 12 mmol/L 5-14 Serum or plasma urea nitrogen measurement (mass/volume) 16 mg/dL 7-18 Serum or plasma creatinine measurement (mass/volume) 1.16 mg/dL 0.60-1.30 Serum or plasma urea nitrogen/creatinine mass ratio 14 NRG Serum or plasma creatinine measurement with calculation of estimated glomerular filtration rate > NRG Serum or plasma glucose measurement (mass/volume) 531 mg/dL 70-105 Serum or plasma calcium measurement (mass/volume) 9.7 mg/dL 8.5-10.1 Serum or plasma total bilirubin measurement (mass/volume) 0.3 mg/dL 0.1-1.0 Serum or plasma alkaline phosphatase measurement (enzymatic activity/volume) 120 U/L 40-136 Serum or plasma aspartate aminotransferase measurement (enzymatic activity/ volume) 9 U/L 5-34 Serum or plasma alanine aminotransferase measurement (enzymatic activity/volume ) 15 U/L 0-55 Serum or plasma protein measurement (mass/volume) 7.3 g/dL 6.4-8.2 Serum or plasma albumin measurement (mass/volume) 4.2 g/dL 3.2-4.5 Serum or plasma phosphate measurement (mass/volume) - 08/09/17 15:40 Serum or plasma phosphate measurement (mass/volume) 3.0 mg/dL 2.3-4.7 Magnesium - 08/09/17 15:40 Magnesium 2.2 mg/dL 1.8-2.4 Complete urinalysis with reflex to culture - 08/09/17 16:10 Urine color determination YELLOW NRG Urine clarity determination CLEAR NRG Urine pH measurement by test strip 6 5-9 Specific gravity of urine by test strip 1.010 1.016- 1.022 Urine protein assay by test strip, semi-quantitative 1+ NEGATIVE Urine glucose detection by automated test strip 4+ NEGATIVE Erythrocytes detection in urine sediment by light microscopy NEGATIVE NEGATIVE Urine ketones detection by automated test strip NEGATIVE NEGATIVE Urine nitrite detection by test strip NEGATIVE NEGATIVE Urine total bilirubin detection by test strip NEGATIVE NEGATIVE Urine urobilinogen measurement by automated test strip (mass/volume) NORMAL NORMAL Urine leukocyte esterase detection by dipstick NEGATIVE NEGATIVE Automated urine sediment erythrocyte count by microscopy (number/high power field) RARE NRG Automated urine sediment leukocyte count by microscopy (number/high power field ) NONE NRG Bacteria detection in urine sediment by light microscopy NONE NRG Crystals detection in urine sediment by light microscopy NONE NRG Casts detection in urine sediment by light microscopy NONE NRG Mucus detection in urine sediment by light microscopy NEGATIVE NRG Complete urinalysis with reflex to culture NO NRG Urine drug screening test - 08/09/17 16:10 Urine phencyclidine detection by screening method NEGATIVE NEGATIVE Urine benzodiazepines detection by screening method NEGATIVE NEGATIVE Urine cocaine detection NEGATIVE NEGATIVE Urine amphetamines detection by screening method NEGATIVE NEGATIVE Urine methamphetamine detection by screening method NEGATIVE NEGATIVE Urine cannabinoids detection by screening method NEGATIVE NEGATIVE Urine opiates detection by screening method POSITIVE NEGATIVE Urine barbiturates detection NEGATIVE NEGATIVE Screening urine tricyclic antidepressants detection NEGATIVE NEGATIVE Urine methadone detection by screening method NEGATIVE NEGATIVE Urine oxycodone detection NEGATIVE NEGATIVE Urine propoxyphene detection NEGATIVE NEGATIVE Arterial blood gas measurement - 08/09/17 16:33 Blood pCO2 43 mm[Hg] 35-45 Blood pO2 35 mm[Hg] 79-93 Arterial blood bicarbonate measurement (moles/volume) 23 mmol/L 23-27 Arterial blood base excess by calculation -2.5 mmol/L - 2.5-2.5 Arterial blood oxygen saturation measurement 66 % 94-100 * Inhaled oxygen flow rate ROOM NRG Arterial blood pH measurement with patient temperature correction 7.33 7.37-7.43 Arterial blood carbon dioxide, total measurement (moles/volume) 24.0 mmol/L 21.0-31.0 Body site LT RADIAL NRG Assessment of wrist artery patency prior to arterial puncture YES- POS NRG Setting of ventilation mode NO NRG Measurement of body temperature 97.1 NRG Capillary blood glucose measurement by glucometer (mass/volume) - 08/09/17 17: 41 Capillary blood glucose measurement by glucometer (mass/volume) 344 mg/dL 70-110 Complete urinalysis with reflex to culture - 08/27/17 08:48 Urine color determination YELLOW NRG Urine clarity determination SLIGHTLY CLOUDY NRG Urine pH measurement by test strip 6 5-9 Specific gravity of urine by test strip 1.015 1.016- 1.022 Urine protein assay by test strip, semi-quantitative 2+ NEGATIVE Urine glucose detection by automated test strip 3+ NEGATIVE Erythrocytes detection in urine sediment by light microscopy 1+ NEGATIVE Urine ketones detection by automated test strip NEGATIVE NEGATIVE Urine nitrite detection by test strip NEGATIVE NEGATIVE Urine total bilirubin detection by test strip NEGATIVE NEGATIVE Urine urobilinogen measurement by automated test strip (mass/volume) NORMAL NORMAL Urine leukocyte esterase detection by dipstick NEGATIVE NEGATIVE Automated urine sediment erythrocyte count by microscopy (number/high power field) RARE NRG Automated urine sediment leukocyte count by microscopy (number/high power field ) NONE NRG Bacteria detection in urine sediment by light microscopy NEGATIVE NRG Squamous epithelial cells detection in urine sediment by light microscopy NONE NRG Crystals detection in urine sediment by light microscopy NONE NRG Casts detection in urine sediment by light microscopy NONE NRG Mucus detection in urine sediment by light microscopy NEGATIVE NRG Complete urinalysis with reflex to culture NO NRG Other elements identification in urine sediment by light microscopy FEW SPERM NRG Automated blood complete blood count (hemogram) panel - 08/27/17 08:58 Blood leukocytes automated count (number/volume) 9.0 10*3/uL 4.3-11.0 Blood erythrocytes automated count (number/volume) 4.56 10*6/uL 4.35-5.85 Venous blood hemoglobin measurement (mass/volume) 13.1 g/dL 13.3-17.7 Blood hematocrit (volume fraction) 38 % 40-54 Automated erythrocyte mean corpuscular volume 83 [foz_us] 80-99 Automated erythrocyte mean corpuscular hemoglobin (mass per erythrocyte) 29 pg 25-34 Automated erythrocyte mean corpuscular hemoglobin concentration measurement ( mass/volume) 35 g/dL 32-36 Automated erythrocyte distribution width ratio 12.3 % 10.0-14.5 Automated blood platelet count (count/volume) 302 10*3/uL 130-400 Automated blood platelet mean volume measurement 10.0 [foz_us] 7.4-10.4 PT panel in platelet poor plasma by coagulation assay - 08/27/17 08:58 Prothrombin time (PT) in platelet poor plasma by coagulation assay 12.1 s 12.2-14.7 INR in platelet poor plasma or blood by coagulation assay 0.9 0.8-1.4 Activated partial thromboplastin time (aPTT) in platelet poor plasma bycoagulation assay - 08/27/17 08:58 Activated partial thromboplastin time (aPTT) in platelet poor plasma bycoagulation assay 26 s 24-35 Comprehensive metabolic panel - 08/27/17 08:58 Serum or plasma sodium measurement (moles/volume) 138 mmol/L 135-145 Serum or plasma potassium measurement (moles/volume) 3.6 mmol/L 3.6-5.0 Serum or plasma chloride measurement (moles/volume) 101 mmol/L 98-107 Carbon dioxide 28 mmol/L 21-32 Serum or plasma anion gap determination (moles/volume) 9 mmol/L 5-14 Serum or plasma urea nitrogen measurement (mass/volume) 7 mg/dL 7-18 Serum or plasma creatinine measurement (mass/volume) 0.87 mg/dL 0.60-1.30 Serum or plasma urea nitrogen/creatinine mass ratio 8 NRG Serum or plasma creatinine measurement with calculation of estimated glomerular filtration rate > NRG Serum or plasma glucose measurement (mass/volume) 295 mg/dL 70-105 Serum or plasma calcium measurement (mass/volume) 9.1 mg/dL 8.5-10.1 Serum or plasma total bilirubin measurement (mass/volume) 0.4 mg/dL 0.1-1.0 Serum or plasma alkaline phosphatase measurement (enzymatic activity/volume) 103 U/L 40-136 Serum or plasma aspartate aminotransferase measurement (enzymatic activity/ volume) 9 U/L 5-34 Serum or plasma alanine aminotransferase measurement (enzymatic activity/volume ) 11 U/L 0-55 Serum or plasma protein measurement (mass/volume) 6.4 g/dL 6.4-8.2 Serum or plasma albumin measurement (mass/volume) 3.8 g/dL 3.2-4.5 Lipid 1996 panel - 08/27/17 08:58 Serum or plasma triglyceride measurement (mass/volume) 447 mg/dL <150 Serum or plasma cholesterol measurement (mass/volume) 187 mg/dL < 200 Serum or plasma cholesterol in HDL measurement (mass/volume) 43 mg/ dL 40-60 Cholesterol in LDL [mass/volume] in serum or plasma by direct assay 76 mg/dL 1-129 Serum or plasma cholesterol in VLDL measurement (mass/volume) 89 mg/ dL 5-40 Methicillin resistant Staphylococcus aureus (MRSA) screening culture - 08:58 Methicillin resistant Staphylococcus aureus (MRSA) screening culture NEG NRG Capillary blood glucose measurement by glucometer (mass/volume) - 12/28/17 21: 40 Capillary blood glucose measurement by glucometer (mass/volume) 491 mg/dL 70-110 Encounters ACCT No. Visit Date/Time Discharge Status Pt. Type Provider Facility Loc./Unit Complaint [id number] 12/28/2017 20:50:00 12/28/2017 21:58:00 DIS Outpatient ELIZABETH WOLFF [facility] ER HIP INJ [id number] 09/02/2017 12:32:00 09/02/2017 23:59:59 CLS Outpatient SUSAN GAMBOA MD [facility] RAD ANEURYSM ARTERY [id number] 08/27/2017 08:33:00 08/27/2017 16:55:00 DIS Outpatient SUSAN GAMBOA MD [facility] CATH PVD, ABN CHRISTOPHER [id number] 08/09/2017 15:24:00 08/09/2017 18:00:00 DIS Emergency CELSO HACKETT MD [facility] ER HIGH BLOOD SUGAR [id number] 08/01/2017 19:50:00 08/03/2017 11:30:00 DIS Inpatient REYNA LIZ MD [address] DIABETIC KETOACIDOSIS [id number] 09/30/2016 12:37:00 09/30/2016 23:59:59 CLS Outpatient CHRISTOPH TEJEDA MD [facility] LAB ED [id number] 05/03/2016 09:00:00 05/05/2016 11:30:00 DIS Inpatient CHRISTOPH TEJEDA MD [facility] [address] AMS HYPERKALEMIA ARF HYPERGLYCEMIA [id number] 10/25/2015 12:41:00 10/26/2015 11:30:00 DIS Inpatient CHRISTOPH TEJEDA MD [facility] ICU [id number] 09/11/2015 12:45:00 09/13/2015 08:30:00 DIS Inpatient CHRISTOPH TEJEDA MD [facility] 4TH [id number] 07/17/2015 22:14:00 07/18/2015 20:20:00 DIS Outpatient SUSAN GAMBOA MD [facility] CATH [id number] 05/17/2015 15:00:00 05/19/2015 10:10:00 DIS Outpatient CHRISTOPH TEJEDA MD [facility] CATH [id number] 11/15/2014 18:26:00 11/15/2014 20:01:00 DIS Emergency NATASHA ASH DO [facility] ER [id number] 05/09/2014 09:45:00 05/09/2014 12:15:00 DIS Outpatient [id number] 05/04/2014 07:28:00 05/04/2014 23:59:59 CLS Outpatient [id number] 05/02/2014 09:07:00 05/02/2014 23:59:59 CLS Outpatient [id number] 04/15/2014 10:44:00 04/15/2014 23:59:59 CLS Outpatient [id number] 04/11/2014 10:04:00 04/11/2014 23:59:59 CLS Outpatient [id number] 07/14/2013 11:16:00 07/14/2013 23:59:59 CLS Outpatient [id number] 02/20/2013 20:30:00 02/24/2013 12:10:00 DIS Outpatient
[2017-12-31] MEDS ORDERED: NS IV 1000 ML 1,000 ML IV SCH ×3 (11:43→13:10)
[2017-12-31 11:59] LABS: BASOPHILS # (AUTO) 0.3 10^3/uL (0.0-0.1); BASOPHILS % (AUTO) 1 % (0-10); EOSINOPHILS # (AUTO) 0.1 10^3/uL (0.0-0.3); EOSINOPHILS % (AUTO) 0 % (0-10); HEMATOCRIT 44 % (40-54); HEMOGLOBIN 13.6 G/DL (13.3-17.7); LYMPHOCYTES % (AUTO) 4 % (12-44); MEAN CORPUSCULAR HEMOGLOBIN 27 PG (25-34); MEAN CORPUSCULAR HGB CONC 31 G/DL (32-36); MEAN CORPUSCULAR VOLUME 88 FL (80-99); MEAN PLATELET VOLUME 10.7 FL (7.4-10.4); MONOCYTES # (AUTO) 3.3 X 10^3 (0.0-1.0); MONOCYTES % (AUTO) 6 % (0-12); NEUTROPHILS # (AUTO) 45.5 X 10^3 (1.8-7.8); NEUTROPHILS % (AUTO) 89 % (42-75); RED CELL DISTRIBUTION WIDTH 13.5 % (10.0-14.5)
[2017-12-31 12:05] LABS: PLATELET COUNT 1294 10^3/uL (130-400); WHITE BLOOD COUNT 51.1 10^3/uL (4.3-11.0)
[2017-12-31 12:16] LABS: INR 1.3 (0.8-1.4); PROTHROMBIN TIME PATIENT 16.5 SEC (12.2-14.7)
[2017-12-31 12:24] LABS: ALBUMIN 3.6 GM/DL (3.2-4.5); BILIRUBIN,TOTAL 0.2 MG/DL (0.1-1.0); CALCIUM 10.8 MG/DL (8.5-10.1); CREATININE SERUM 2.17 MG/DL (0.60-1.30); POTASSIUM 4.9 MMOL/L (3.6-5.0); TOTAL PROTEIN 8.7 GM/DL (6.4-8.2)
[2017-12-31 12:34] LABS: BAND NEUTROPHILS 12 %; BASOPHILS % (MANUAL) 0 %; EOSINOPHILS % (MANUAL) 0 %; LYMPHOCYTES % (MANUAL) 4 %; MONOCYTES % (MANUAL) 4 %; NEUTROPHILS % (MANUAL) 80 %
[2017-12-31 12:38] LABS: TOXIC GRANULATION/VACUOLAZATIO 1+
[2017-12-31] MEDS ORDERED: PIPERACILLIN SODIUM/TAZOBACTAM 4.5 GM in NS (IVPB) 100 ML IV ONE (12:45)
[2017-12-31] MEDS ORDERED: inSUlin (REGULAR) HUMAN 1 UNIT/0.01 ML (CHARGE PER UNIT) IV ONE (12:45)
[2017-12-31 12:56] LABS: MAGNESIUM 2.9 MG/DL (1.8-2.4); PHOSPHORUS 7.2 MG/DL (2.3-4.7)
[2017-12-31] MEDS ORDERED: fentaNYL INJECTION 100 MCG/2 ML AMP ONE (12:57)
--- NOTE | 2017-12-31 13:08 | ED General ---
General Chief Complaint: Altered Mental Status Stated Complaint: COLLAPSED Source of Information: Patient Exam Limitations: No Limitations History of Present Illness Date Seen by Provider: Dec 31, 2017 Time Seen by Provider: 11:32 Initial Comments This 57-year-old man presents to the emergency room with severe weakness and collapse without injury. His blood sugars have been very high and he has not taken his insulin for a couple of days. Patient was seen December 28 in the emergency room and was noted to have a blood sugar 491. He refuses insulin therapy at that time. Patient reportedly has been drinking vodka but has had very little other oral intake. Responsiveness has been decreased at home. Blood pressures for EMS have been in the 80s over 50s. Blood sugars have been reading "high". Patient is alert and answering questions appropriately on arrival. Patient denies any cough or fever. Patient states he is a type II diabetic. Allergies and Home Medications Allergies Coded Allergies: No Known Drug Allergies (Unverified , 02/20/13) Home Medications Aspirin 81 Mg Tablet.dr, 81 MG PO DAILY PRN for CHEST PAIN, (Reported) Oxycodone HCl/Acetaminophen 1 Each Tablet, 2 TAB PO Q6H PRN for PAIN-SEVERE, ( Reported) Pantoprazole Sodium 40 Mg Tablet.dr, 40 MG PO DAILY, (Reported) Patient Home Medication List Home Medication List Reviewed: Yes Constitutional: see HPI EENTM: other (dry mucous membranes) Respiratory: other (tachypnea) Cardiovascular: see HPI Gastrointestinal: see HPI Genitourinary: no symptoms reported Musculoskeletal: no symptoms reported Skin: no symptoms reported Psychiatric/Neurological: See HPI Hematologic/Lymphatic: No Symptoms Reported Past Ckdklef-Qkgoqm-Nxktyd Hx Patient Social History Type Used: Smokeless Tobacco Former Smoker, Quit: Aug 27, 2013 Recent Hopitalizations: No Immunizations Up To Date Tetanus Booster (TDap): More than 5yrs PED Vaccines UTD: No Seasonal Allergies Seasonal Allergies: No Surgeries History of Surgeries: Yes (HOLE REPAIRED IN STOMACH, 2 FOOT, 1 KNEE) Surgeries: Cardiac, CABG, Coronary Stent, Orthopedic Respiratory History of Respiratory Disorde: Yes Respiratory Disorders: COPD Currently Using CPAP: No Currently Using BIPAP: No Cardiovascular History of Cardiac Disorders: Yes Cardiac Disorders: Coronary Artery Disease, High Cholesterol, Hypertension Neurological History of Neurological Disord: Yes ("fibro and neuropathy" "pinched nerve") Neurological Disorders: Neuropathy Reproductive System Hx Reproductive Disorders: No Sexually Transmitted Disease: No HIV/AIDS: No Genitourinary History of Genitourinary Disor: Yes ("BLADDER STRETCHED CHILD X 2") Gastrointestinal History of Gastrointestinal Di: Yes Gastrointestinal Disorders: Gastroesophageal Reflux Musculoskeletal History of Musculoskeletal Dis: Yes Musculoskeletal Disorders: Arthritis, Chronic Back Pain Endocrine History of Endocrine Disorders: Yes Endocrine Disorders: Diabetes, Insulin dep HEENT History of HEENT Disorders: Yes Loss of Vision: Denies Hearing Impairment: Denies Cancer History of Cancer: No Psychosocial History of Psychiatric Problem: Yes (history of suicidal ideation) Integumentary History of Skin or Integumenta: No Blood Transfusions History of Blood Disorders: No Adverse Reaction to a Blood Tr: No Family Medical History Family Medial History: Cardiovascular disease 19 MOTHER G8 BROTHER Diabetes mellitus 19 MOTHER Physical Exam-Suspected Sepsis Physical Exam Vital Signs Vital Signs - First Documented 12/31/17 12/31/17 11:33 14:36 Temp 92.1 Pulse 107 Resp 28 B/P (MAP) 84/60 (68) Pulse Ox 98 O2 Delivery Nasal Cannula O2 Flow Rate 2.00 FiO2 100 Capillary Refill : General Appearance: WD/WN, Moderate Distress, Thin HEENT: PERRL/EOMI, Normal ENT Inspection, Other (mucous membranes very dry) Neck: Normal Inspection Respiratory: Lungs Clear, Normal Breath Sounds, No Accessory Muscle Use, No Respiratory Distress, Other (tachypnea) Cardiovascular: Regular Rate, Rhythm, No Edema, No Murmur, Tachycardia Gastrointestinal: Normal Bowel Sounds, Non Tender, Soft Extremity: Normal Inspection, No Pedal Edema Neurologic/Psychiatric: Alert, Motor Weakness (generalized), Other (alert but somnolent. Answers questions appropriately) Skin: normal color, cool, other (tenting noted) Focused Exam Evaluation Lactate Level Laboratory Tests 12/31/17 11:50: Lactic Acid Level 6.50*H 12/31/17 13:50: Lactic Acid Level 2.01*H Lactic Acid Level Lumen: triple Central Line Procedure: betadine prep, sterile drapes applied, sterile dressing applied Position: internal jugular (R) Anesthesia: Lidocaine Volume Anesthetic (ccs): 4 Complications: none Post Position: sutured, good blood return, position confirmed w/ CXR Progress IJ line was placed after consent from patient. Procedure was performed by Steven Kaur APRN under my direct supervision. Progress/Results/Core Measures Suspected Sepsis SIRS Temperature: Pulse: Respiratory Rate: Laboratory Tests 12/31/17 11:50: White Blood Count 51.1*H Blood Pressure / Mean: Laboratory Tests 12/31/17 11:50: Lactic Acid Level 6.50*H 12/31/17 13:50: Lactic Acid Level 2.01*H Laboratory Tests 12/31/17 11:50: INR Comment 1.3, Platelet Count 1294*H, Total Bilirubin 0.2 12/31/17 14:14: Creatinine 1.72H 12/31/17 16:12: Creatinine 1.54H 12/31/17 18:22: Creatinine 1.33H Results/Orders Lab Results Laboratory Tests Test 12/31/17 11:50 12/31/17 11:52 12/31/17 13:43 12/31/17 13:50 Range/Units White Blood Count 51.1 *H 4.3-11.0 10^3/uL Red Blood Count 5.00 4.35-5.85 10^6/uL Hemoglobin 13.6 13.3-17.7 G/DL Hematocrit 44 40-54 % Mean Corpuscular Volume 88 80-99 FL Mean Corpuscular Hemoglobin 27 25-34 PG Mean Corpuscular Hemoglobin Concent 31 L 32-36 G/DL Red Cell Distribution Width 13.5 10.0-14.5 % Platelet Count 1294 *H 130-400 10^3/uL Mean Platelet Volume 10.7 H 7.4-10.4 FL Neutrophils (%) (Auto) 89 H 42-75 % Lymphocytes (%) (Auto) 4 L 12-44 % Monocytes (%) (Auto) 6 0-12 % Eosinophils (%) (Auto) 0 0-10 % Basophils (%) (Auto) 1 0-10 % Neutrophils # (Auto) 45.5 H 1.8-7.8 X 10^3 Lymphocytes # (Auto) 2.0 1.0-4.0 X 10^3 Monocytes # (Auto) 3.3 H 0.0-1.0 X 10^3 Eosinophils # (Auto) 0.1 0.0-0.3 10^3/uL Basophils # (Auto) 0.3 H 0.0-0.1 10^3/uL Neutrophils % (Manual) 80 % Lymphocytes % (Manual) 4 % Monocytes % (Manual) 4 % Eosinophils % (Manual) 0 % Basophils % (Manual) 0 % Band Neutrophils 12 % Toxic Granulation 1+ Prothrombin Time 16.5 H 12.2-14.7 SEC INR Comment 1.3 0.8-1.4 Activated Partial Thromboplast Time 26 24-35 SEC Sodium Level 142 135-145 MMOL/L Potassium Level 4.9 3.6-5.0 MMOL/L Chloride Level 104 98-107 MMOL/L Carbon Dioxide Level 9 *L 21-32 MMOL/L Anion Gap 29 H 5-14 MMOL/L Blood Urea Nitrogen 31 H 7-18 MG/DL Creatinine 2.17 H 0.60-1.30 MG/DL Estimat Glomerular Filtration Rate 31 BUN/Creatinine Ratio 14 Glucose Level 780 *H 70-105 MG/DL Lactic Acid Level 6.50 *H 2.01 *H 0.50-2.00 MMOL/L Calcium Level 10.8 H 8.5-10.1 MG/DL Phosphorus Level 7.2 H 2.3-4.7 MG/DL Magnesium Level 2.9 H 1.8-2.4 MG/DL Total Bilirubin 0.2 0.1-1.0 MG/DL Aspartate Amino Transf (AST/SGOT) 18 5-34 U/L Alanine Aminotransferase (ALT/SGPT) 11 0-55 U/L Alkaline Phosphatase 157 H 40-136 U/L Total Protein 8.7 H 6.4-8.2 GM/DL Albumin 3.6 3.2-4.5 GM/DL Serum Alcohol 13 H <10 MG/DL Glucometer > 600 *H 70-110 MG/DL Blood Gas Puncture Site L RAD Blood Gas Patient Temperature 96.3 Arterial Blood pH 7.13 *L 7.37-7.43 Arterial Blood Partial Pressure CO2 10 *L 35-45 MMHG Arterial Blood Partial Pressure O2 136 H 79-93 MMHG Arterial Blood HCO3 3 *L 23-27 MMOL/L Arterial Blood Total CO2 3.7 L 21.0-31.0 MMOL/L Arterial Blood Oxygen Saturation 99 94-100 % Arterial Blood Base Excess -25.0 L -2.5-2.5 MMOL/L Jack Test YES-POS Blood Gas Ventilator Setting NO Blood Gas Inspired Oxygen 2 Test 12/31/17 14:07 12/31/17 14:14 12/31/17 15:15 12/31/17 16:12 Range/Units Urine Color YELLOW Urine Clarity CLEAR Urine pH 5 5-9 Urine Specific Ovid 1.020 1.016-1.022 Urine Protein 2+ H NEGATIVE Urine Glucose (UA) 4+ H NEGATIVE Urine Ketones 4+ H NEGATIVE Urine Nitrite NEGATIVE NEGATIVE Urine Bilirubin NEGATIVE NEGATIVE Urine Urobilinogen NORMAL NORMAL MG/DL Urine Leukocyte Esterase NEGATIVE NEGATIVE Urine RBC (Auto) 3+ H NEGATIVE Urine RBC 0-2 /HPF Urine WBC 0-2 /HPF Urine Squamous Epithelial Cells 0-2 /HPF Urine Crystals NONE /LPF Urine Bacteria TRACE /HPF Urine Casts PRESENT /LPF Urine Hyaline Casts 5-10 H /LPF Urine Mucus NEGATIVE /LPF Urine Culture Indicated NO Urine Opiates Screen NEGATIVE NEGATIVE Urine Oxycodone Screen NEGATIVE NEGATIVE Urine Methadone Screen NEGATIVE NEGATIVE Urine Propoxyphene Screen NEGATIVE NEGATIVE Urine Barbiturates Screen NEGATIVE NEGATIVE Ur Tricyclic Antidepressants Screen NEGATIVE NEGATIVE Urine Phencyclidine Screen NEGATIVE NEGATIVE Urine Amphetamines Screen NEGATIVE NEGATIVE Urine Methamphetamines Screen NEGATIVE NEGATIVE Urine Benzodiazepines Screen NEGATIVE NEGATIVE Urine Cocaine Screen NEGATIVE NEGATIVE Urine Cannabinoids Screen NEGATIVE NEGATIVE Sodium Level 147 H 148 H 135-145 MMOL/L Potassium Level 3.2 L 2.3 *L 3.6-5.0 MMOL/L Chloride Level 116 #H 122 H 98-107 MMOL/L Carbon Dioxide Level 6 *L 8 *L 21-32 MMOL/L Anion Gap 25 H 18 H 5-14 MMOL/L Blood Urea Nitrogen 31 H 31 H 7-18 MG/DL Creatinine 1.72 H 1.54 H 0.60-1.30 MG/DL Estimat Glomerular Filtration Rate 41 47 BUN/Creatinine Ratio 18 20 Glucose Level 702 *H 539 *H 70-105 MG/DL Calcium Level 9.3 9.4 8.5-10.1 MG/DL Glucometer 578 *H 70-110 MG/DL Test 12/31/17 16:23 12/31/17 17:24 12/31/17 18:22 12/31/17 18:26 Range/Units Glucometer 539 *H 340 H 282 H 70-110 MG/DL Sodium Level 152 H 135-145 MMOL/L Potassium Level 2.9 L 3.6-5.0 MMOL/L Chloride Level 125 H 98-107 MMOL/L Carbon Dioxide Level 12 L 21-32 MMOL/L Anion Gap 15 H 5-14 MMOL/L Blood Urea Nitrogen 29 H 7-18 MG/DL Creatinine 1.33 H 0.60-1.30 MG/DL Estimat Glomerular Filtration Rate 55 BUN/Creatinine Ratio 22 Glucose Level 341 H 70-105 MG/DL Calcium Level 9.5 8.5-10.1 MG/DL Test 12/31/17 19:38 Range/Units Glucometer 338 H 70-110 MG/DL My Orders Orders - MARIKA BLUM MD Cbc With Automated Diff (12/31/17 11:43) Comprehensive Metabolic Panel (12/31/17 11:43) Lactic Acid Analyzer (12/31/17 11:43) Blood Culture (12/31/17 11:43) Sputum Culture (12/31/17 11:43) Ua Culture If Indicated (12/31/17 11:43) Protime With Inr (12/31/17 11:43) Partial Thromboplastin Time (12/31/17 11:43) Chest 1 View, Ap/Pa Only (12/31/17 11:43) O2 (12/31/17 11:43) Saline Lock/Iv-Start (12/31/17 11:43) Saline Lock/Iv-Start (12/31/17 11:43) Vital Signs Adult Sepsis Patie Q1H (12/31/17 11:43) Remove Rings In Anticipation O (12/31/17 11:43) Saline Lock/Iv-Start (12/31/17 11:43) Ns Iv 1000 Ml (Sodium Chloride 0.9%) (12/31/17 11:43) Accucheck Stat ONCE (12/31/17 11:43) Manual Differential (12/31/17 11:50) Piperacillin Sodium/Tazobactam (Zosyn Vi (12/31/17 12:45) Insulin (Regular) Human (Humulin R (Per (12/31/17 12:45) Saline Lock/Iv-Start (12/31/17 12:40) Ns Iv 1000 Ml (Sodium Chloride 0.9%) (12/31/17 12:40) Magnesium (12/31/17 12:40) Phosphorus (12/31/17 12:40) Boo Cath Insertion (12/31/17 12:41) Fentanyl Injection (Sublimaze Injection (12/31/17 12:57) Fentanyl Injection (Sublimaze Injection (12/31/17 13:15) Alcohol (12/31/17 13:08) Drug Screen Stat (Urine) (12/31/17 13:08) Saline Lock/Iv-Start (12/31/17 13:10) Ns Iv 1000 Ml (Sodium Chloride 0.9%) (12/31/17 13:10) Medications Given in ED Current Medications Medications Dose Ordered Sig/Lorena Route Start Time Stop Time Status Last Admin Dose Admin Fentanyl Citrate 50 mcg ONCE ONCE IVP 12/31/17 13:15 12/31/17 13:16 DC 12/31/17 14:04 50 MCG Insulin Human Regular 10 unit ONCE ONCE IV 12/31/17 12:45 12/31/17 12:46 DC 12/31/17 13:12 10 UNIT Piperacillin Sod/ Tazobactam Sod 4.5 gm/Sodium Chloride 100 ml @ 200 mls/hr ONCE ONCE IV 12/31/17 12:45 12/31/17 13:14 DC 12/31/17 13:55 200 MLS/HR Vital Signs/I&O Vital Sign - Last 12Hours 12/31/17 12/31/17 12/31/17 12/31/17 11:33 11:33 14:36 14:36 Temp 92.1 96.3 Pulse 107 104 102 Resp 28 22 22 B/P (MAP) 84/60 (68) 105/76 105/76 Pulse Ox 98 98 98 100 O2 Delivery Nasal Cannula Simple Mask Nasal Cannula Nasal Cannula O2 Flow Rate 2.00 2.00 FiO2 100 12/31/17 12/31/17 12/31/17 12/31/17 14:56 15:09 15:15 15:15 Temp 96.8 Pulse 106 104 105 Resp 24 25 B/P (MAP) 128/89 (102) 100/54 (69) Pulse Ox 100 99 O2 Delivery Room Air Room Air Room Air 12/31/17 12/31/17 12/31/17 12/31/17 15:30 15:45 16:00 16:15 Pulse 104 105 103 103 Resp 29 21 23 24 B/P (MAP) 87/60 (69) 99/61 (74) 103/73 (83) 101/70 (80) Pulse Ox 100 100 91 100 O2 Delivery Room Air Room Air Room Air Room Air 12/31/17 12/31/17 12/31/17 12/31/17 16:17 16:45 17:00 17:15 Pulse 105 112 107 109 Resp 25 22 18 B/P (MAP) 101/70 (80) 108/48 (68) 114/80 (91) 107/74 (85) Pulse Ox 100 100 100 O2 Delivery Room Air Room Air Room Air 12/31/17 12/31/17 12/31/17 12/31/17 17:21 18:00 19:00 19:00 Temp 97.5 Pulse 109 122 112 112 Resp 25 23 10 B/P (MAP) 107/74 (85) 113/78 (90) 113/78 (90) Pulse Ox 100 100 100 O2 Delivery Room Air Room Air Room Air Capillary Refill : Progress Note : Progress Note Septic protocol was followed up on patient assessment. IV was established and warm saline fluids were started. 10 units of IV insulin was also ordered. A IJ central line was inserted by Steven Kaur APRN under my direct supervision. Zosyn was started as initial empiric antibiotic therapy. Dr. Benjamin presented to the ER to personally assess the patient. 2 L of IV fluids were infused in the ER with a third one started. Diagnostic Imaging Diagonstic Imaging: Xray Plain Films/CT/US/NM/MRI: chest Comments NAME: [facility]UM[facility] JEFFERS [facility] REC#: [id number] PT STATUS: ADM IN : 1960 PHYSICIAN: MARIKA BLUM MD ADMIT DATE: 12/31/17/ICU Signed Date of Exam: 12/31/17 CHEST 1 VIEW, AP/PA ONLY INDICATION: Central line placement. TIME OF EXAMINATION: 01:28 p.m. COMPARISON: Comparison is made with prior study from 08/27/2017. FINDINGS: A right IJ line has been placed, has the tip overlying the SVC. No pneumothorax is identified. The lungs are clear. There are changes of median sternotomy and CABG. IMPRESSION: Right IJ line placement. No pneumothorax is detected. Dictated by: Dictated on workstation # [id number] Dict: 12/31/17 1342 Trans: 12/31/17 1544 Interpreted by: DAYANNA HAMMONDS MD Electronically signed by: DAYANNA HAMMONDS MD 12/31/17 1544 Departure Communication (Admissions) Time/Spoke to Admitting Phy: 13:[address] Benjamin Impression Impression: Primary Impression: Diabetic ketoacidosis Qualified Codes: E11.10 - Type 2 diabetes mellitus with ketoacidosis without coma Additional Impressions: Thrombocytosis Leukocytosis Qualified Codes: D72.829 - Elevated white blood cell count, unspecified Alcohol abuse Acute renal failure Qualified Codes: N17.9 - Acute kidney failure, unspecified Dehydration Disposition: ADMITTED INPATIENT Condition: Improved Admissions Decision to Admit Reason: Admit from ER (General) Decision to Admit/Date: Dec 31, 2017 Time/Decision to Admit Time: 11:32 Departure-Patient Inst. Referrals: CHRISTOPH TEJEDA MD (PCP/Family) Primary Care Physician MARIKA BLUM MD Dec 31, 2017 13:08
[2017-12-31] MEDS ORDERED: fentaNYL INJECTION 100 MCG/2 ML AMP IVP ONE (13:15)
--- NOTE | 2017-12-31 13:36 | History & Physical-Hospitalist ---
HPI History of Present Illness: HPI/Chief Complaint Pt is a 57yoCM with a PMH of IDDMII, HTN, CAD, and alcohol abuse who presented to the ER for AMS. He believes he is here due to his pain though he provides a varying history. He states that he has a sore throat and it "hurts all the time. " His states his mentation is what prompted his presentation to the ER. He also complains of pain "all over" that he states is due to the heart disease and diabetes. He cannot provide any specific source of his pain or describe his pain. He does complain of coughing but denies sputum. He has also complained of some dysuria over the past couple of days. He reports that he is supposed to be on insulin but has not taken it over 5 years because he doesn't like it. He reports the only pain medicines he takes are his pain pills. Of note he reports he drank "a half bottle of vodka" yesterday but has not drank for 7 months prior to this. Source: patient Exam Limitations: clinical condition Date Seen 12/31/17 Time Seen by Provider: 13:10 Attending Physician Reyna Liz Floyd R MD Referring Physician Date of Admission Home Medications & Allergies Home Medications Reviewed patient Home Medication Reconciliation Form Allergies Allergies Coded Allergies No Known Drug Allergies (Unverified02/20/13) Past Hjrwcja-Jwefxm-Dgnqdl Hx Patient Social History Marrital Status: Employed/Student: unemployed (on disibality) Former Smoker, Quit: Aug 27, 2013 Type Used: Smokeless Tobacco Recent Hopitalizations: No Immunizations Up To Date Tetanus Booster (TDap): More than 5yrs Pediatric: No Seasonal Allergies Seasonal Allergies: No Surgeries Yes (HOLE REPAIRED IN STOMACH, 2 FOOT, 1 KNEE) CABG, Coronary Stent, Orthopedic Respiratory Yes COPD Currently Using CPAP: No Currently Using BIPAP: No Cardiovascular Yes Coronary Artery Disease, High Cholesterol, Hypertension Neurological Yes ("fibro and neuropathy" "pinched nerve") Neuropathy Reproductive System Hx Reproductive Disorders: No Sexually Transmitted Disease: No HIV/AIDS: No Genitourinary Yes ("BLADDER STRETCHED CHILD X 2") Gastrointestinal Yes Gastroesophageal Reflux Musculoskeletal Yes Arthritis, Chronic Back Pain Endocrine History of Endocrine Disorders: Yes Endocrine Disorders: Diabetes, Insulin dep HEENT History of HEENT Disorders: Yes Loss of Vision: Denies Hearing Impairment: Denies Cancer No Psychosocial History of Psychiatric Problem: Yes (history of suicidal ideation) Integumentary History of Skin or Integumenta: No Blood Transfusions History of Blood Disorders: No Adverse Reaction to a Blood Tr: No Family Medical History Significant Family History: Heart Disease, Diabetes Family Hx: Cardiovascular disease 19 MOTHER G8 BROTHER Diabetes mellitus 19 MOTHER Review of Systems ROS-Unable to Obtain: patient denies most complaints though unsure if accurate Constitutional: No chills, No fever EENTM: throat pain, No blurred vision, No double vision, No nose congestion Respiratory: No cough, No dyspnea on exertion, No short of breath Cardiovascular: No chest pain, No edema, No palpitations Gastrointestinal: No abdominal pain, No constipation, No diarrhea, No nausea, No vomiting Genitourinary: dysuria, No frequency Musculoskeletal: back pain, joint pain Skin: No lesions, No rash Psychiatric/Neurological: Denies Headache, Denies Tingling Physical Exam Physical Exam Vital Signs Vital Signs - First Documented 12/31/17 14:36 Pulse 102 Resp 22 B/P (MAP) 105/76 Pulse Ox 100 O2 Delivery Nasal Cannula O2 Flow Rate 2.00 Capillary Refill : General Appearance: Chronically ill, Mild Distress, Thin HEENT: PERRL/EOMI, No Scleral Icterus (L), No Scleral Icterus (R), Other (dry mucus membranes) Respiratory: Lungs Clear, No Crackles, Other (tachypneic) Cardiovascular: No Murmur, Tachycardia Gastrointestinal: Normal Bowel Sounds, Non Tender, Soft Extremity: Non Tender, No Calf Tenderness, No Pedal Edema, Slow Capillary Refill Neurologic/Psychiatric: Alert, No Motor/Sensory Deficits, Normal Mood/Affect, Other (oriented to person, place, and components of situation) Skin: Normal Color, Warm/Dry Results Results/Procedures Lab Laboratory Tests 12/31/17 11:50 12/31/17 14:14 Radiology Date of Exam:12/31/17 CHEST 1 VIEW, AP/PA ONLY INDICATION: Central line placement. TIME OF EXAMINATION: 01:28 p.m. COMPARISON: Comparison is made with prior study from 08/27/2017. FINDINGS: A right IJ line has been placed, has the tip overlying the SVC. No pneumothorax is identified. The lungs are clear. There are changes of median sternotomy and CABG. IMPRESSION: Right IJ line placement. No pneumothorax is detected. Assessment/Plan Admission Diagnosis DKA Admission Status: Inpatient Order (span 2 midnights) Reason for Inpatient Admission: DKA with severe metabolic acidosis Diagnosis/Problems Diagnosis/Problems (1) Diabetic ketoacidosis Status: Acute Assessment & Plan: Severe acidosis- bicarb of 9 10U insulin given in the ER Will start insulin gtt per protocol Will adjust concominant fluids due to hypotension Will give NS with 40KCL through central line at 250ml/hr Monitor BMP Q2 for now Qualifiers: Qualified Codes: E11.10 - Type 2 diabetes mellitus with ketoacidosis without coma (2) Acute renal failure Status: Resolved Assessment & Plan: Creatinine 0.87 in 08/2017 Creatinine now 2.17 and BUN 31 2L given in ER, 3rd hanging Will continue aggressive volume repletion Boo to monitor urine output Qualifiers: Qualified Codes: N17.9 - Acute kidney failure, unspecified (3) Alcohol abuse Status: Acute Assessment & Plan: alcohol level 13 Has history of alcohol abuse Will place on CIWA protocol (4) Thrombocytosis Status: Acute Assessment & Plan: Likely reactive Will trend and consult heme (5) Leukocytosis Status: Acute Assessment & Plan: WBC 51- likely leukemoid reaction This is not sepsis Qualifiers: Qualified Codes: D72.829 - Elevated white blood cell count, unspecified (6) CAD (coronary artery disease) Status: Chronic Assessment & Plan: History of CABG in past cannot clarify further details Does not take any medications for his heart disease Qualifiers: Qualified Codes: I25.10 - Atherosclerotic heart disease of ambler coronary artery without angina pectoris (7) Counseling regarding end of life decision making Assessment & Plan: Discussed with patient and regarding plan of care and code status Originally patient has stated that he would rather than receive any insulin but was requesting to be a full code Discussed with who stated he had always told her he wanted to be a DNR Went over options for care but that being a Full code and providing CPR and intubation without insulin would be futile care because it would not be treating the underlying disease Ultimately agreeable to insulin for a while and would like to have a limited code performed should he suffer from cardiac or respiratory arrest He and agreeable to this plan and palliative consult tomorrow (8) Prophylactic measure Assessment & Plan: Lovenox Ns +40KCL at 250cc/hr NPO Clinical Quality Measures End of Life/Advance Care Plan: Advance Care discuss with: patient, family member (s) Plan: initiate discussion, developed treatment plan REYNA LIZ MD Dec 31, 2017 13:36
--- OUTSIDE RECORDS SUMMARY | 2017-12-31 13:38 | XMS REPORT | Continuity of Care Document ---
Author Author [facility] Organization [facility] Address Unknown Phone Unavailable Allergies Active Description Code Type Severity Reaction Onset Reported/Identified Relationship to Patient Clinical Status Yes No Known Drug Allergies [id number] Drug Allergy Unknown N/A 02/20/2013 Medications There is no data. Problems Date Dx Coded Attending Type Code Diagnosis Diagnosed By 11/15/2014 MIHIR TAYLOR NATASHA K Ot 250.00 11/15/2014 MIHIR TAYLOR, NATASHA K Ot 272.4 11/15/2014 MIHIR DO, NATASHA K Ot 401.9 11/15/2014 [facility], NATASHA K Ot 414.00 11/15/2014 [place] , NATASHA K Ot 786.50 11/15/2014 MIHIR DO, NATASHA K Ot V45.81 11/15/2014 [place] DO, NATASHA K Ot V45.82 11/15/2014 MIHIR [...] SUSAN Pretty Ot 401.9 07/18/2015 COOPER REYNOSO, SUASN Pretty Ot 411.1 07/18/2015 COOPER REYNOSO, SUSAN [...] J Ot Z91.19 07/18/2015 COOPER REYNOSO, SUSAN Pretty Ot Z95.1 07/18/2015 COOPER REYNOSO, SUSAN [...] R Ot I25.10 ATHSCL HEART DISEASE OF [place] CORONARY 05/05/2016 CHRISTOPH TEJEDA MD Ot K21.9 [...] UNSPECIFIED 08/03/2017 REYNA LIZ MD, Ot Z79.4 SPECIAL NEEDS TUTOR (CURRENT) USE OF INSULIN 08/03/2017 REYNA LIZ [...] MD Ot I25.10 ATHSCL HEART DISEASE OF [place] CORONARY 08/09/2017 CELSO HACKETT MD Ot J44.9 CHRONIC OBSTRUCTIVE PULMONARY DISEASE, U 08/09/2017 CELSO HACKETT MD Ot K21.9 GASTRO-ESOPHAGEAL REFLUX DISEASE WITHOUT 08/09/2017 CELSO HACKETT MD Ot R73.09 OTHER ABNORMAL GLUCOSE 08/09/2017 CELSO HACKETT MD Ot Z79.4 GROUP HOME (CURRENT) USE OF INSULIN 08/09/2017 CELSO HACKETT MD Ot Z79.82 SPECIAL NEEDS TUTOR (CURRENT) USE OF ASPIRIN 08/09/2017 CELSO HACKETT [...] MD Ot I25.10 ATHSCL HEART DISEASE OF [place] CORONARY 08/27/2017 SUSAN GAMBOA MD Ot I34.0 NONRHEUMATIC MITRAL (VALVE) INSUFFICIENC 08/27/2017 SUSAN GAMBOA MD Ot I70.0 ATHEROSCLEROSIS OF [place] 08/27/2017 SUSAN GAMBOA MD Ot I70.213 ATHSCL [place] ARTERIES OF EXTRM W INTRMT 08/27/2017 SUSAN GAMBOA MD Ot I72.3 ANEURYSM OF ILIAC ARTERY 08/27/2017 SUSAN GAMBOA MD Ot Z79.4 GROUP HOME (CURRENT) USE OF INSULIN 08/27/2017 SUSAN GAMBOA MD Ot Z79.82 SPECIAL NEEDS TUTOR (CURRENT) USE OF ASPIRIN 08/27/2017 SUSAN GAMBOA [...] MD Ot I25.10 ATHSCL HEART DISEASE OF [place] CORONARY 09/11/2017 SUSAN GAMBOA MD Ot I34.0 NONRHEUMATIC MITRAL (VALVE) INSUFFICIENC 09/11/2017 SUSAN GAMBOA MD Ot I70.0 ATHEROSCLEROSIS OF [place] 09/11/2017 SUSAN GAMBOA MD Ot I70.213 ATHSCL [place] ARTERIES OF EXTRM W INTRMT 09/11/2017 USSAN GAMBOA MD Ot I72.3 ANEURYSM OF ILIAC ARTERY 09/11/2017 SUSAN GAMBOA MD Ot Z79.4 GROUP HOME (CURRENT) USE OF INSULIN 09/11/2017 SUSAN GAMBOA MD Ot Z79.82 GROUP HOME (CURRENT) USE OF ASPIRIN 09/11/2017 SUSAN GAMBOA MD Ot Z87.891 PERSONAL HISTORY OF NICOTINE DEPENDENCE 09/11/2017 SUSAN GAMBOA MD Ot Z91.14 PATIENT'S OTHER NONCOMPLIANCE WITH MEDIC 09/11/2017 SUSAN GAMBOA MD Ot Z95.5 PRESENCE OF CORONARY ANGIOPLASTY IMPLANT 09/24/2017 SUSAN GAMBOA MD Ot I70.203 UNSP ATHSCL [place] ARTERIES OF EXTREMITI 09/24/2017 SUSAN GAMBOA MD Ot I72.3 ANEURYSM OF ILIAC ARTERY 09/24/2017 SUSAN GAMBOA MD Ot I77.1 STRICTURE OF ARTERY 10/16/2017 SUSAN GAMBOA MD Ot E11.9 TYPE 2 DIABETES MELLITUS WITHOUT COMPLIC 10/16/2017 SUSAN GAMBOA MD Ot E78.2 MIXED HYPERLIPIDEMIA 10/16/2017 SUSAN GAMBOA MD Ot I10 ESSENTIAL (PRIMARY) HYPERTENSION 10/16/2017 SUSAN GAMBOA MD Ot I25.10 ATHSCL HEART DISEASE OF [place] CORONARY 10/16/2017 SUSAN GAMBOA MD Ot I34.0 NONRHEUMATIC MITRAL (VALVE) INSUFFICIENC 10/16/2017 SUSAN GAMBOA MD Ot I70.0 ATHEROSCLEROSIS OF [place] 10/16/2017 SUSAN GAMBOA MD Ot I70.213 ATHSCL [place] ARTERIES OF EXTRM W INTRMT 10/16/2017 SUSAN GAMBOA MD Ot I72.3 ANEURYSM OF ILIAC ARTERY 10/16/2017 SUSAN GAMBOA MD Ot Z79.4 GROUP HOME (CURRENT) USE OF INSULIN 10/16/2017 SUSAN GAMBOA MD Ot Z79.82 GROUP HOME (CURRENT) USE OF ASPIRIN 10/16/2017 SUSAN GAMBOA [...] WOLFF Ot I25.10 ATHSCL HEART DISEASE OF [place] CORONARY 12/30/2017 ELIZABETH WOLFF Ot J44.9 CHRONIC OBSTRUCTIVE PULMONARY DISEASE, U 12/30/2017 ELIZABETH WOLFF Ot K21.9 GASTRO-ESOPHAGEAL REFLUX DISEASE WITHOUT 12/30/2017 ELIZABETH WOLFF Ot M25.551 PAIN IN RIGHT HIP 12/30/2017 ELIZABETH WOLFF Ot W18.30XA FALL ON SAME LEVEL, UNSPECIFIED, INITIAL 12/30/2017 ELIZABETH WOLFF Ot Z79.4 GROUP HOME (CURRENT) USE OF INSULIN 12/30/2017 ELIZABETH WOLFFP Ot Z79.82 SPECIAL NEEDS TUTOR (CURRENT) USE OF ASPIRIN 12/30/2017 ELIZABETH WOLFFP [...] Status Pt. Type Provider Facility Loc./Unit Complaint [id number] 12/28/2017 20:50:00 12/28/2017 21:58:00 DIS Outpatient ELIZABETH WOLFF [facility] ER HIP INJ [id number] 09/02/2017 12:32:00 09/02/2017 23:59:59 CLS Outpatient SUSAN GAMBOA MD [facility] RAD ANEURYSM ARTERY [id number] 08/27/2017 08:33:00 08/27/2017 16:55:00 DIS Outpatient SUSAN GAMBOA MD [facility] CATH PVD, ABN CHRISTOPHER [id number] 08/09/2017 15:24:00 08/09/2017 18:00:00 DIS Emergency CELSO HACKETT MD [facility] ER HIGH BLOOD SUGAR [id number] 08/01/2017 19:50:00 08/03/2017 11:30:00 DIS Inpatient REYNA LIZ MD [facility] [address] DIABETIC KETOACIDOSIS [id number] 09/30/2016 12:37:00 09/30/2016 23:59:59 CLS Outpatient CHRISTOPH TEJEDA MD [facility] LAB ED [id number] 05/03/2016 09:00:00 05/05/2016 11:30:00 DIS Inpatient CHRISTOPH TEJEDA MD [facility] [address] AMS HYPERKALEMIA ARF HYPERGLYCEMIA [id number] 10/25/2015 12:41:00 10/26/2015 11:30:00 DIS Inpatient CHRISTOPH TEJEDA MD [facility] ICU [id number] 09/11/2015 12:45:00 09/13/2015 08:30:00 DIS Inpatient CHRISTOPH TEJEDA MD [facility] 4TH [id number] 07/17/2015 22:14:00 07/18/2015 20:20:00 DIS Outpatient SUSAN GAMBOA MD [facility] CATH [id number] 05/17/2015 15:00:00 05/19/2015 10:10:00 DIS Outpatient CHRISTOPH TEJEDA MD [facility] CATH [id number] 11/15/2014 18:26:00 11/15/2014 20:01:00 DIS Emergency NATASHA ASH DO [facility] ER [id number] 05/09/2014 09:45:00 05/09/2014 12:15:00 DIS Outpatient [id number] 05/04/2014 07:28:00 05/04/2014 23:59:59 CLS Outpatient [id number] 05/02/2014 09:07:00 05/02/2014 23:59:59 CLS Outpatient [id number] 04/15/2014 10:44:00 04/15/2014 23:59:59 CLS Outpatient [id number] 04/11/2014 10:04:00 04/11/2014 23:59:59 CLS Outpatient [id number] 07/14/2013 11:16:00 07/14/2013 23:59:59 CLS Outpatient [id number] 02/20/2013 20:30:00 02/24/2013 12:10:00 DIS Outpatient
[2017-12-31] MEDS ORDERED: NS IV 1000 ML 1,000 ML IV ONE (13:48)
[2017-12-31 13:49] LABS: ABG OXYGEN SATURATION 99 % (94-100); ABG PO2 136 MMHG (79-93); ABG TCO2 3.7 MMOL/L (21.0-31.0)
--- NOTE | 2017-12-31 13:50 | Diagnostic Imaging Report ---
INDICATION: Central line placement. TIME OF EXAMINATION: 01:28 p.m. COMPARISON: Comparison is made with prior study from 08/27/2017. FINDINGS: A right IJ line has been placed, has the tip overlying the SVC. No pneumothorax is identified. The lungs are clear. There are changes of median sternotomy and CABG. IMPRESSION: Right IJ line placement. No pneumothorax is detected. Dictated by: Dictated on workstation # [id number]
[2017-12-31] MEDS ORDERED: 1/2 NS IV SOLUTION 1,000 ML IV PRN (13:56)
[2017-12-31 13:58] LABS: ABG PCO2 10 MMHG (35-45); ABG PH 7.13 (7.37-7.43); ALLENS TEST YES-POS; INSPIRED O2 2; PATIENT TEMP 96.3; VENTILATOR NO
[2017-12-31] MEDS ORDERED: SENNA W/DOCUSATE (SENOKOT S) TABLET PO PRN (14:00)
[2017-12-31] MEDS ORDERED: LORazepam INJ 2 MG/ML (ATIVAN) VIAL IM/IV PRN (14:00)
[2017-12-31] MEDS ORDERED: POTASSIUM CL 10MEQ/50ML IVPB 50 ML IV SCH (14:00)
[2017-12-31] MEDS ORDERED: LORazepam INJ 2 MG/ML (ATIVAN) VIAL IV PRN (14:00)
[2017-12-31] MEDS ORDERED: inSUlin REGULAR TPN/DRIP ONLY 250 UNITS in NORMAL SALINE 250 ML IV SCH (14:00)
[2017-12-31] MEDS ORDERED: D5 1/2 NS 1000 ML IV SOLUTION 1,000 ML IV SCH (14:00)
[2017-12-31] MEDS ORDERED: ANTACID SUSP 30 ML UDC (MYLANTA) PO PRN (14:00)
[2017-12-31] MEDS ORDERED: ONDANSETRON 4 MG (ZOFRAN) ORAL DISSOLVE TAB SL PRN (14:00)
[2017-12-31] MEDS ORDERED: ONDANSETRON 4 MG/2 ML (SDV) Z0FRAN IV PRN (14:00)
[2017-12-31] MEDS ORDERED: D5 1/2 NS 1000 ML IV SOLUTION 1,000 ML IV PRN (14:00)
[2017-12-31] MEDS ORDERED: LORazepam 1 MG (ATIVAN) TAB PO PRN (14:00)
[2017-12-31 14:13] LABS: BILIRUBIN,URINE NEGATIVE (NEGATIVE); CLARITY,URINE CLEAR; COLOR,URINE YELLOW; GLUCOSE, URINE (UA) 4+ (NEGATIVE); KETONES,URINE 4+ (NEGATIVE); LEUKOCYTE ESTERASE ,URINE NEGATIVE (NEGATIVE); NITRITE,URINE NEGATIVE (NEGATIVE); PH,URINE 5 (5-9); PROTEIN,URINE 2+ (NEGATIVE); UROBILINOGEN,URINE NORMAL (NORMAL)
[2017-12-31 14:21] LABS: BACTERIA,URINE TRACE /HPF; RBC,URINE 0-2 /HPF; SQUAMOUS EPITHELIAL CELL,UR 0-2 /HPF; WBC,URINE 0-2 /HPF
[2017-12-31 14:28] LABS: AMPHETAMINE SCREEN, URINE NEGATIVE (NEGATIVE); BARBITURATE SCREEN URINE NEGATIVE (NEGATIVE); BENZODIAZEPINES SCREEN URINE NEGATIVE (NEGATIVE); CANNABINOID SCREEN, URINE NEGATIVE (NEGATIVE); COCAINE SCREEN URINE NEGATIVE (NEGATIVE); METHADONE STAT NEGATIVE (NEGATIVE); METHAMPHETAMINE SCREEN URINE S NEGATIVE (NEGATIVE); OPIATE SCREEN URINE NEGATIVE (NEGATIVE); OXYCODONE STAT NEGATIVE (NEGATIVE); PROPOXYPHENE STAT NEGATIVE (NEGATIVE); TRICYCLIC ANTIDEPRESSANTS SCRE NEGATIVE (NEGATIVE)
[2017-12-31 14:33] LABS: CALCIUM 9.3 MG/DL (8.5-10.1); CREATININE SERUM 1.72 MG/DL (0.60-1.30); POTASSIUM 3.2 MMOL/L (3.6-5.0)
[2017-12-31] MEDS: 1/2 NS IV SOLUTION 1,000 ML IV SCH ×3 (14:46→22:39)
[2017-12-31] MEDS: DEXTROSE 10% IV SOLUTION 1,000 ML IV SCH ×2 (14:46→22:39)
[2017-12-31] MEDS: D5 1/2 NS W/KCL 20 MEQ/L 1,000 ML IV SCH ×3 (14:46→22:39)
[2017-12-31] MEDS ORDERED: POTASSIUM CHLORIDE INJ 40 MEQ in NS IV 1000 ML 1,000 ML IV SCH (15:15)
--- NOTE | 2017-12-31 15:21 | Pulmonary Consultation ---
History of Present Illness History of Present Illness Date of Consultation 12/31/17 15:13 Time Seen by Provider: 15:13 Date of Admission History of Present Illness 57yo Allergies and Home Medications Allergies Coded Allergies: No Known Drug Allergies (Unverified , 02/20/13) Home Medications Aspirin 81 Mg Tablet.dr, 81 MG PO DAILY PRN for CHEST PAIN, (Reported) Oxycodone HCl/Acetaminophen 1 Each Tablet, 2 TAB PO Q6H PRN for PAIN-SEVERE, ( Reported) Pantoprazole Sodium 40 Mg Tablet.dr, 40 MG PO DAILY, (Reported) Past Mlijfmf-Vuofio-Ylghce Hx Patient Social History Type Used: Smokeless Tobacco Former Smoker, Quit: Aug 27, 2013 Recent Foreign Travel: No Contact w/Someone Who Travel: No Recent Hopitalizations: No Immunizations Up To Date Tetanus Booster (TDap): More than 5yrs PED Vaccines UTD: No Seasonal Allergies Seasonal Allergies: No Surgeries History of Surgeries: Yes (HOLE REPAIRED IN STOMACH, 2 FOOT, 1 KNEE) Surgeries: Cardiac, CABG, Coronary Stent, Orthopedic Respiratory History of Respiratory Disorde: Yes Respiratory Disorders: COPD Currently Using CPAP: No Currently Using BIPAP: No Cardiovascular History of Cardiac Disorders: Yes Cardiac Disorders: Coronary Artery Disease, High Cholesterol, Hypertension Neurological History of Neurological Disord: Yes ("fibro and neuropathy" "pinched nerve") Neurological Disorders: Neuropathy Reproductive System Hx Reproductive Disorders: No Sexually Transmitted Disease: No HIV/AIDS: No Genitourinary History of Genitourinary Disor: Yes ("BLADDER STRETCHED CHILD X 2") Gastrointestinal History of Gastrointestinal Di: Yes Gastrointestinal Disorders: Gastroesophageal Reflux Musculoskeletal History of Musculoskeletal Dis: Yes Musculoskeletal Disorders: Arthritis, Chronic Back Pain Endocrine History of Endocrine Disorders: Yes Endocrine Disorders: Diabetes, Insulin dep HEENT History of HEENT Disorders: Yes Loss of Vision: Denies Hearing Impairment: Denies Cancer History of Cancer: No Psychosocial History of Psychiatric Problem: Yes (history of suicidal ideation) Integumentary History of Skin or Integumenta: No Blood Transfusions History of Blood Disorders: No Adverse Reaction to a Blood Tr: No Family Medical History Family Medial History: Cardiovascular disease 19 MOTHER G8 BROTHER Diabetes mellitus 19 MOTHER Exam Exam Vital Signs Date Time Temp Pulse Resp B/P (MAP) Pulse Ox O2 Delivery O2 Flow Rate FiO2 12/31/17 14:36 102 22 105/76 100 Nasal Cannula 2.00 General Appearance: WD/WN, Moderate Distress, Thin HEENT: PERRL/EOMI, Normal ENT Inspection, Other (mucous membranes very dry) Neck: Normal Inspection Respiratory: Lungs Clear, Normal Breath Sounds, No Accessory Muscle Use, No Respiratory Distress, Other (tachypnea) Cardiovascular: Regular Rate, Rhythm, No Edema, No Murmur, Tachycardia Extremity: Normal Inspection, No Pedal Edema Neurologic/Psychiatric: Alert, Motor Weakness (generalized), Other (alert but somnolent. Answers questions appropriately) Results Lab Laboratory Tests 12/31/17 11:50 12/31/17 14:14 Assessment/Plan Assessment/Plan DKA with severe dehydration -DKA protocol -Change IVF to NS with 40KCL -Monitor chem every 2 hrs Hypokalemia -Monitor close and give 40kcl of Severe metabolic acidosis ARF -IVF and monitor Pt states he does not want insulin and he is ready to . is at bedside and pt appears confused. agrees to proceed with medical treatment at this time. We will have hospice education with him tomorrow if he is doing better and not as confused. [address] REYES DO Dec 31, 2017 15:21
[2017-12-31] MEDS ORDERED: inSUlin (REGULAR) HUMAN 1 UNIT/0.01 ML (CHARGE PER UNIT) SC NR (15:30)
[2017-12-31] MEDS: fentaNYL INJECTION 100 MCG/2 ML AMP IVP PRN ×3 (15:57→22:39)
[2017-12-31] MEDS ORDERED: INFLUENZA TRIvalent 2017-2018 0.5 ML/45 MCG SYR IM ONE ×2 (16:00→16:30)
[2017-12-31] MEDS: 1/2 NS W/KCL 20 MEQ/L 1,000 ML IV SCH ×3 (16:06→22:39)
[2017-12-31] MEDS: ENOXAPARIN 40 MG/0.4 ML (LOVENOX) SYR SC SCH (16:21)
[2017-12-31] MEDS: POTASSIUM CL 10MEQ/50ML IVPB 50 ML IV SCH ×8 (16:34→21:41)
[2017-12-31 16:35] LABS: CALCIUM 9.4 MG/DL (8.5-10.1); CREATININE SERUM 1.54 MG/DL (0.60-1.30)
[2017-12-31] MEDS: NS W/KCL 40 MEQ/L 1,000 ML IV SCH ×3 (16:36→21:41)
[2017-12-31 16:42] LABS: POTASSIUM 2.3 MMOL/L (3.6-5.0)
[2017-12-31 18:51] LABS: CALCIUM 9.5 MG/DL (8.5-10.1); CREATININE SERUM 1.33 MG/DL (0.60-1.30); POTASSIUM 2.9 MMOL/L (3.6-5.0)
[2017-12-31] MEDS: PIPERACILLIN SODIUM/TAZOBACTAM 4.5 GM in NS (IVPB) 100 ML IV SCH (20:33)
[2018-01-01] VITALS (28 sets, daily range): BP systolic 127–157; BP diastolic 81–106
[2018-01-01 01:06] LABS: BUN/CREATININE RATIO 26; CALCIUM 9.1 MG/DL (8.5-10.1); CARBON DIOXIDE 14 MMOL/L (21-32); CHLORIDE 130 MMOL/L (98-107); CREATININE SERUM 0.95 MG/DL (0.60-1.30); GFR ESTIMATED > 60; GLUCOSE 197 MG/DL (70-105); POTASSIUM 4.4 MMOL/L (3.6-5.0); SODIUM 151 MMOL/L (135-145)
[2018-01-01] MEDS: NS W/KCL 40 MEQ/L 1,000 ML IV SCH (01:35)
[2018-01-01] MEDS: 1/2 NS IV SOLUTION 1,000 ML IV SCH ×4 (01:35→09:49)
[2018-01-01] MEDS: 1/2 NS W/KCL 20 MEQ/L 1,000 ML IV SCH ×3 (01:36→08:21)
[2018-01-01] MEDS: D5 1/2 NS W/KCL 20 MEQ/L 1,000 ML IV SCH ×3 (01:36→08:21)
[2018-01-01 02:07] LABS: OCCULT BLOOD,GASTRIC FLUID NEGATIVE (NEGATIVE)
[2018-01-01 02:13] LABS: BASOPHILS # (AUTO) 0.1 10^3/uL (0.0-0.1); BASOPHILS % (AUTO) 0 % (0-10); EOSINOPHILS % (AUTO) 0 % (0-10); HEMATOCRIT 35 % (40-54); HEMOGLOBIN 11.6 G/DL (13.3-17.7); LYMPHOCYTES # (AUTO) 1.2 X 10^3 (1.0-4.0); LYMPHOCYTES % (AUTO) 3 % (12-44); MEAN CORPUSCULAR HEMOGLOBIN 28 PG (25-34); MEAN CORPUSCULAR HGB CONC 33 G/DL (32-36); MEAN CORPUSCULAR VOLUME 83 FL (80-99); MEAN PLATELET VOLUME 9.7 FL (7.4-10.4); MONOCYTES # (AUTO) 2.4 X 10^3 (0.0-1.0); MONOCYTES % (AUTO) 7 % (0-12); NEUTROPHILS # (AUTO) 32.7 X 10^3 (1.8-7.8); NEUTROPHILS % (AUTO) 90 % (42-75); PLATELET COUNT 910 10^3/uL (130-400); RED BLOOD COUNT 4.22 10^6/uL (4.35-5.85); RED CELL DISTRIBUTION WIDTH 13.1 % (10.0-14.5)
[2018-01-01 02:22] LABS: WHITE BLOOD COUNT 36.4 10^3/uL (4.3-11.0)
[2018-01-01 02:37] LABS: BUN/CREATININE RATIO 26; CALCIUM 9.3 MG/DL (8.5-10.1); CARBON DIOXIDE 13 MMOL/L (21-32); CHLORIDE 130 MMOL/L (98-107); CREATININE SERUM 0.92 MG/DL (0.60-1.30); GFR ESTIMATED > 60; GLUCOSE 185 MG/DL (70-105); POTASSIUM 4.6 MMOL/L (3.6-5.0); SODIUM 150 MMOL/L (135-145)
[2018-01-01 02:38] LABS: PHOSPHORUS 0.8 MG/DL (2.3-4.7)
[2018-01-01] MEDS ORDERED: LACTATED RINGERS 1,000 ML IV ONE (03:23)
[2018-01-01] MEDS ORDERED: LACTATED RINGERS 1,000 ML IV SCH (03:30)
[2018-01-01] MEDS: PIPERACILLIN SODIUM/TAZOBACTAM 4.5 GM in NS (IVPB) 100 ML IV SCH ×2 (04:13→16:23)
[2018-01-01] MEDS ORDERED: DEXTROSE 50% 50 ML (IMS) SYR ONE (05:16)
--- NOTE | 2018-01-01 05:23 | Pulmonary Progress Note ---
Exam Exam Vital Signs Date Time Temp Pulse Resp B/P (MAP) Pulse Ox O2 Delivery O2 Flow Rate FiO2 01/01/18 04:00 100 Room Air 01/01/18 04:00 99.1 01/01/18 01:00 113 01/01/18 00:00 98.4 01/01/18 00:00 100 Room Air 01/01/18 00:00 112 28 127/81 (96) 99 Room Air 12/31/17 23:00 112 28 120/80 (93) 99 Room Air 12/31/17 22:00 115 30 125/82 (96) 100 Room Air 12/31/17 21:00 112 30 124/80 (95) 100 Room Air 12/31/17 20:00 113 28 118/79 (92) 100 Room Air 12/31/17 20:00 100 Room Air 100 12/31/17 19:45 97.6 Room Air 12/31/17 19:00 112 12/31/17 19:00 112 10 113/78 (90) 100 Room Air 12/31/17 18:00 122 23 113/78 (90) 100 Room Air 12/31/17 17:21 97.5 109 25 107/74 (85) 100 Room Air 12/31/17 17:15 109 18 107/74 (85) 100 Room Air 12/31/17 17:00 107 22 114/80 (91) 100 Room Air 12/31/17 16:45 112 25 108/48 (68) 100 Room Air 12/31/17 16:17 105 101/70 (80) 12/31/17 16:15 103 24 101/70 (80) 100 Room Air 12/31/17 16:00 103 23 103/73 (83) 91 Room Air 12/31/17 15:45 105 21 99/61 (74) 100 Room Air 12/31/17 15:30 104 29 87/60 (69) 100 Room Air 12/31/17 15:15 Room Air 12/31/17 15:15 105 25 100/54 (69) 99 Room Air 12/31/17 15:09 104 12/31/17 14:56 96.8 106 24 128/89 (102) 100 Room Air 12/31/17 14:36 102 22 105/76 100 Nasal Cannula 2.00 12/31/17 14:36 96.3 104 22 105/76 98 Nasal Cannula 2.00 12/31/17 11:33 92.1 107 28 84/60 (68) 98 Simple Mask 12/31/17 11:33 98 Nasal Cannula 100 I & O 01/01/18 07:00 Intake Total 1700 ml Output Total 1725 ml Balance -25 ml General Appearance: WD/WN, Moderate Distress, Thin HEENT: PERRL/EOMI, Normal ENT Inspection, Other (mucous membranes very dry) Neck: Normal Inspection Respiratory: Lungs Clear, Normal Breath Sounds, No Accessory Muscle Use, No Respiratory Distress, Other (tachypnea) Cardiovascular: Regular Rate, Rhythm, No Edema, No Murmur, Tachycardia Capillary Refill: Less Than 3 Seconds Extremity: Normal Inspection, No Pedal Edema Neurologic/Psychiatric: Alert, Motor Weakness (generalized), Other (alert but somnolent. Answers questions appropriately) Skin: Normal Color, Warm/Dry Results Lab Laboratory Tests 12/31/17 11:50 12/31/17 14:14 12/31/17 16:12 12/31/17 18:22 01/01/18 00:30 01/01/18 02:05 Assessment/Plan Assessment/Plan DKA with severe dehydration -DKA protocol -Change IVF to match DKA protocol now that pt is not hypotensive -Give amp of D50 (BS is 100) and keep insulin gtt going Hypokalemia -Monitor close and give 40kcl of -IVF should be d51/2 with 20KCL at 150 now CAD with hx of CABG Severe metabolic acidosis ARF -IVF and monitor hx of chronic pain [address] REYES DO Jan 01, 2018 05:23
[2018-01-01] MEDS ORDERED: DEXTROSE 50% 50 ML (IMS) SYR IV ONE ×2 (05:30→08:15)
[2018-01-01] MEDS: POTASSIUM CL 10MEQ/50ML IVPB 50 ML IV SCH ×4 (05:31→10:40)
[2018-01-01] MEDS ORDERED: SODIUM PHOSPHATE INJ 40 MM in NS (IVPB) 250 ML INJ NR (07:00)
[2018-01-01] MEDS ORDERED: VANCOMYCIN INJECTION 0.1 MG in NS (IVPB) 250 ML IV SCH (07:15)
[2018-01-01] MEDS ORDERED: PIPERACILLIN SODIUM/TAZOBACTAM 4.5 GM in NS (IVPB) 100 ML IV NR (07:30)
--- NOTE | 2018-01-01 07:58 | Progress Note-Hospitalist ---
Subjective HPI/CC On Admission Date Seen by Provider: Jan 01, 2018 Time Seen by Provider: 07:15 Pt is a 57yoCM with a PMH of IDDMII, HTN, CAD, and alcohol abuse who presented to the ER for AMS. He believes he is here due to his pain though he provides a varying history. He states that he has a sore throat and it "hurts all the time. " His states his mentation is what prompted his presentation to the ER. He also complains of pain "all over" that he states is due to the heart disease and diabetes. He cannot provide any specific source of his pain or describe his pain. He does complain of coughing but denies sputum. He has also complained of some dysuria over the past couple of days. He reports that he is supposed to be on insulin but has not taken it over 5 years because he doesn't like it. He reports the only pain medicines he takes are his pain pills. Of note he reports he drank "a half bottle of vodka" yesterday but has not drank for 7 months prior to this. Subjective/Events-last exam Pt reports feeling about the same to worse than yesterday. Informed him of staph bacteremia. denies any recent injuries, procedures, or injection of illicit drugs. Objective Exam Vital Signs Vital Signs Date Time Temp Pulse Resp B/P (MAP) Pulse Ox O2 Delivery O2 Flow Rate FiO2 12/31/17 11:33 98 Nasal Cannula 100 12/31/17 11:33 92.1 107 28 84/60 (68) 12/31/17 14:36 2.00 Capillary Refill : Less Than 3 Seconds General Appearance: No Apparent Distress, Chronically ill, Cachetic HEENT: Moist Mucous Membranes, No Scleral Icterus (L), No Scleral Icterus (R), Other (temporal wasting) Respiratory: Lungs Clear, No Accessory Muscle Use, No Respiratory Distress Cardiovascular: Regular Rate, Rhythm, No Murmur Gastrointestinal: Normal Bowel Sounds, Non Tender, Soft Extremity: No Calf Tenderness, No Pedal Edema Neurologic/Psychiatric: Alert, Oriented x3 Skin: Normal Color, Warm/Dry Results/Procedures Lab Laboratory Tests 12/31/17 16:12 12/31/17 18:22 01/01/18 00:30 01/01/18 02:05 01/01/18 08:10 Assessment/Plan Assessment and Plan Assess & Plan/Chief Complaint DKA, Staph bacteremia Critical Care: Critically Ill Patient Diagnosis/Problems Diagnosis/Problems (1) Diabetic ketoacidosis Status: Acute Assessment & Plan: Acidosis improving though persistent Gap closed so likely due to hyperchloremic metabolic acidosis Started on D51/2 NS this AM Start Levemir 10 units, stop gtt after 2 hours Qualifiers: Qualified Codes: E11.10 - Type 2 diabetes mellitus with ketoacidosis without coma (2) Bacteremia due to Staphylococcus Status: Acute Assessment & Plan: Notified by lab of staph in all 4 tubes Continue Zosyn, start Vanc Echo ordered- may need ZAC Will discuss further with he and about desire for aggressive measures Technically qualified for septic shock parameters yesterday Likely confounded by severe dehydration from DKA treated appropriately with fluid bolus, abx, and cultures Did not have refractory hypotension so pressors were not needed (3) Acute renal failure Status: Resolved Assessment & Plan: Resolved, creatinine 0.92 currently Boo to monitor urine output- adequate at this time Qualifiers: Qualified Codes: N17.9 - Acute kidney failure, unspecified (4) Alcohol abuse Status: Acute Assessment & Plan: alcohol level 13 Has history of alcohol abuse Will place on CIWA protocol (5) Thrombocytosis Status: Acute Assessment & Plan: Trending down (6) Leukocytosis Status: Acute Assessment & Plan: WBC 51- likely leukemoid reaction Qualifiers: Qualified Codes: D72.829 - Elevated white blood cell count, unspecified (7) CAD (coronary artery disease) Status: Chronic Assessment & Plan: History of CABG in past cannot clarify further details Does not take any medications for his heart disease Qualifiers: Qualified Codes: I25.10 - Atherosclerotic heart disease of [place] coronary artery without angina pectoris (8) Counseling regarding end of life decision making Assessment & Plan: Discussed with patient and regarding plan of care and code status on 01/01 Originally patient has stated that he would rather than receive any insulin but was requesting to be a full code Discussed with who stated he had always told her he wanted to be a DNR Went over options for care but that being a Full code and providing CPR and intubation without insulin would be futile care because it would not be treating the underlying disease Ultimately agreeable to insulin for a while and would like to have a limited code performed should he suffer from cardiac or respiratory arrest He and agreeable to this plan and palliative consult later today (9) Prophylactic measure Assessment & Plan: Lovenox D5 1/2 NS ADA REYNA Anglin MD Jan 01, 2018 07:58
[2018-01-01] MEDS: VANCOMYCIN 1 GM/NS 250 ML IVPB IV SCH ×6 (08:00→20:03)
[2018-01-01] MEDS ORDERED: inSUlin DETERMIR 1 UNIT/0.01 ML (LEVEMIR) CHARGE PER UNIT SQ NR (08:15)
[2018-01-01] MEDS: DEXTROSE 10% IV SOLUTION 1,000 ML IV SCH (08:21)
[2018-01-01 08:25] LABS: BILIRUBIN,URINE NEGATIVE (NEGATIVE); CLARITY,URINE CLEAR; COLOR,URINE YELLOW; GLUCOSE, URINE (UA) 1+ (NEGATIVE); KETONES,URINE NEGATIVE (NEGATIVE); LEUKOCYTE ESTERASE ,URINE NEGATIVE (NEGATIVE); NITRITE,URINE NEGATIVE (NEGATIVE); PH,URINE 5 (5-9); PROTEIN,URINE 2+ (NEGATIVE); UROBILINOGEN,URINE NORMAL (NORMAL)
[2018-01-01 08:43] LABS: BUN/CREATININE RATIO 25; CALCIUM 9.3 MG/DL (8.5-10.1); CARBON DIOXIDE 18 MMOL/L (21-32); CHLORIDE 127 MMOL/L (98-107); CREATININE SERUM 0.77 MG/DL (0.60-1.30); GFR ESTIMATED > 60; GLUCOSE 132 MG/DL (70-105); POTASSIUM 4.1 MMOL/L (3.6-5.0); SODIUM 151 MMOL/L (135-145)
[2018-01-01] MEDS: THIAMINE 100 MG (VITAMIN B-1) TAB PO SCH (08:46)
[2018-01-01 08:53] LABS: AMORPHOUS SEDIMENT,UR FEW AMOR URATES /LPF; BACTERIA,URINE NEGATIVE /HPF; RBC,URINE RARE /HPF; RENAL EPITHELIAL CELLS,URINE RARE /HPF; SQUAMOUS EPITHELIAL CELL,UR RARE /HPF; WBC,URINE 0-2 /HPF
[2018-01-01 08:54] LABS: GRANULAR CASTS,URINE 0-2 /LPF; HYALINE CASTS, URINE 0-2 /LPF; URIC ACID CRYSTALS,URINE FEW /LPF
[2018-01-01] MEDS: fentaNYL INJECTION 100 MCG/2 ML AMP IVP PRN ×5 (10:43→22:38)
[2018-01-01] MEDS: inSUlin (REGULAR) HUMAN 1 UNIT/0.01 ML (CHARGE PER UNIT) SC SCH ×3 (11:22→21:28)
[2018-01-01] MEDS: ENOXAPARIN 40 MG/0.4 ML (LOVENOX) SYR SC SCH (13:22)
--- NOTE | 2018-01-01 14:31 | Clinic Account Progress/Dx ---
Clinic Account Progress/Dx DIAGNOSIS: Date Seen by Provider: Jan 01, 2018 Time Seen by Provider: 13:52 staph bacteremia, cardiomyopathy, poorly controlled insulin dependent diabetes mellitus Progress Note: Went to bedside with Palliative Care RN Estuardo as patient had agreed to discuss palliative care and hospice options with him and his . Went over disease processes he is currently suffering from (poorly controlled diabetes, cardiomyopathy with EF 25%, staph bacteremia with he and his . He was very quiet during conversation but stated he agreed and he would not want any more aggressive care performed (cardiac catheterization, open heart surgery, dialysis , etc). Reviewed chart and he has had an over 20lb weight loss in the past 5 months, worsening cardiomyopathy (EF from 60% to 25%) in two years with nearly akinetic anterior wall, and overall debility due to these diseases. He expresses understanding. We discussed his code status and he elected to be a DNR. He said he would not take any new medications for his heart but would consider taking insulin. He and his expressed interest in hospice and would like to talk to hospice agencies. Time spent at bedside in face to face conversation was 1352- 1409 (17m) to discuss advanced care planning, initiate hospice discussion, address code status and form plan of care. REYNA LIZ MD Jan 01, 2018 2:31 pm
[2018-01-01] MEDS ORDERED: inSUlin DETERMIR 1 UNIT/0.01 ML (LEVEMIR) CHARGE PER UNIT SQ SCH (21:00)
--- NOTE | 2018-01-01 22:34 | CONSULTATION REPORT ---
DATE OF SERVICE: 01/01/2018 The patient is admitted to ICU bed 7. PHYSICIAN REQUESTING CONSULTATION: Tere Benjamin MD. IMPRESSION: 1. A 57-year-old male with diabetic ketoacidosis, dehydration and acute renal failure. 2. Staph aureus sepsis. 3. Significant leukocytosis and thrombocytosis, rule out myeloproliferative disorder versus acute phase reaction from the sepsis. 4. Diabetes mellitus, insulin requiring with poor compliance. 5. Significant coronary artery disease and cardiomyopathy. RECOMMENDATIONS: 1. Continue management of diabetic ketoacidosis, dehydration and staph aureus sepsis as you are doing. 2. I will obtain JAK2 mutation analysis from peripheral blood to rule out myeloproliferative disorder. 3. Monitor CBC serially. 4. If the JAK2 mutation is positive, the patient will need a bone marrow evaluation and follow up for further management. BRIEF HISTORY: The patient is a 57-year-old male who was admitted to the hospital with increasing weakness. He was noted to have significantly elevated glucose level and acute renal failure with clinical dehydration. He had significant acidosis also and has had previous admissions for diabetic ketoacidosis. He is noncompliant with insulin use. He was admitted to the hospital and started on aggressive management for the diabetic ketoacidosis. The patient was also noted to have significant leukocytosis with total white count over 50,000 and thrombocytosis with a platelet count of more than 1.2 million. Because of this, a hematology consultation was requested for further evaluation and recommendations. PAST MEDICAL HISTORY: Significant for diabetes mellitus. He is insulin requiring with poor compliance. The patient has had multiple admissions to the hospital for ketoacidosis. His previous CBCs did not show leukocytosis or thrombocytosis. Other past medical history significant for severe coronary artery disease requiring a 2-vessel CABG and multiple stent placements over the years. More recently he has developed a cardiomyopathy with a low ejection fraction in the 25% range. He has history of COPD and hypertension. PAST SURGICAL HISTORY: Include CABG, orthopedic surgery including foot surgery x2 and knee surgery, hiatal hernia repair. SOCIAL HISTORY: The patient is not working and is on disability. He is and lives in [facility]. He has seven sons, all of whom are adults. He has history of binge drinking. He quit using tobacco 3 years ago. Denied any recreational drug use. FAMILY HISTORY: Significant for severe coronary artery disease in multiple members of his family. History of diabetes mellitus in several members of his family also. No significant hematologic problems or malignancies in the family. PHYSICAL EXAMINATION: GENERAL: Showed an elderly male, thin appearing, answering questions fairly. Does not appear in any acute distress at the time of evaluation. HEENT: Normocephalic, extraocular muscles intact, conjunctivae pink, oral mucosa slightly dry. NECK: Supple with no JVD. No cervical, supraclavicular or axillary lymphadenopathy palpable. CHEST: Symmetrical. LUNGS: Clear to auscultation without wheezes or rales. CARDIOVASCULAR: Regular in rate and rhythm. No murmurs or gallops heard. Borderline tachycardic. ABDOMEN: Soft, nontender with no hepatosplenomegaly or other masses palpable. EXTREMITIES: Showed no edema. NEUROLOGIC: Grossly intact without focal motor deficits. LABORATORY DATA: 1. CBC done yesterday at the time of admission from the emergency room showed WBC 51.1, hemoglobin 13.6 and platelet count 1294. Automated differential count showed neutrophil count of 45.5, lymphocyte count 2.0, monocyte count 3.3. Repeat CBC done today showed WBC 36.4, hemoglobin 11.6, platelet count 910,000 with neutrophil count 32.7, lymphocyte count 1.2 and monocyte count 2.4. Chemistry panel done at the time of admission showed normal electrolytes except CO2 level of 9 with an anion gap of 29. BUN was 31 and creatinine 2.17 with GFR 31 mL per minute. Glucose was elevated at 780. Calcium was 10.8. Alkaline phosphatase was elevated at 157 and total protein was slightly elevated at 8.7. Lactic acid level was markedly elevated at 6.5. Hemoglobin A1c was 11.7. 2. Blood cultures obtained at the time of admission, is growing Staphylococcus aureus. Sensitivity is pending. Chest x-ray done at the time of admission showed a right internal jugular line present with no pneumothorax detected. Thank you for allowing me to participate in this patient's care. I will follow the patient with you. Job ID: [id number] DocumentID: [id number] Dictated Date: 01/01/2018 17:47:56 Real Estate Sales Supervisor Date: 01/01/2018 22:33:14 Dictated By: YFN PRESLEY MD [facility]
[2018-01-02] VITALS (11 sets, daily range): BP systolic 131–148; BP diastolic 81–98
[2018-01-02] MEDS: fentaNYL INJECTION 100 MCG/2 ML AMP IVP PRN (00:59)
[2018-01-02] MEDS: PIPERACILLIN SODIUM/TAZOBACTAM 4.5 GM in NS (IVPB) 100 ML IV SCH ×2 (01:00→08:44)
[2018-01-02 03:28] LABS: BASOPHILS % (AUTO) 0 % (0-10); EOSINOPHILS % (AUTO) 0 % (0-10); HEMATOCRIT 34 % (40-54); HEMOGLOBIN 11.5 G/DL (13.3-17.7); LYMPHOCYTES # (AUTO) 2.5 X 10^3 (1.0-4.0); LYMPHOCYTES % (AUTO) 11 % (12-44); MEAN CORPUSCULAR HEMOGLOBIN 27 PG (25-34); MEAN CORPUSCULAR HGB CONC 33 G/DL (32-36); MEAN CORPUSCULAR VOLUME 81 FL (80-99); MEAN PLATELET VOLUME 9.8 FL (7.4-10.4); MONOCYTES # (AUTO) 1.5 X 10^3 (0.0-1.0); MONOCYTES % (AUTO) 7 % (0-12); NEUTROPHILS # (AUTO) 19.2 X 10^3 (1.8-7.8); NEUTROPHILS % (AUTO) 83 % (42-75); PLATELET COUNT 727 10^3/uL (130-400); RED BLOOD COUNT 4.24 10^6/uL (4.35-5.85); RED CELL DISTRIBUTION WIDTH 13.3 % (10.0-14.5); WHITE BLOOD COUNT 23.3 10^3/uL (4.3-11.0)
[2018-01-02 04:01] LABS: BAND NEUTROPHILS 4 %; LYMPHOCYTES % (MANUAL) 15 %; MONOCYTES % (MANUAL) 2 %; NEUTROPHILS % (MANUAL) 79 %
[2018-01-02 04:02] LABS: RBC MORPH NORMAL
--- NOTE | 2018-01-02 05:20 | Pulmonary Progress Note ---
Subjective Time Seen by Provider: 05:20 Subjective/Events-last exam Pt is doing better. No complications noted. Labs still pending. Exam Exam Vital Signs Date Time Temp Pulse Resp B/P (MAP) Pulse Ox O2 Delivery O2 Flow Rate FiO2 01/02/18 04:00 94 26 143/91 (108) 95 Room Air 01/02/18 04:00 100 Room Air 01/02/18 03:00 103 24 131/81 (98) 94 Room Air 01/02/18 02:00 93 17 136/86 (103) 95 Room Air 01/02/18 01:00 97 01/02/18 01:00 97 21 141/89 (106) 95 Room Air 01/02/18 00:00 100 Room Air 01/02/18 00:00 99.6 01/02/18 00:00 98 20 144/92 (109) 95 Room Air 01/01/18 23:00 98 16 150/94 (112) 95 Room Air 01/01/18 22:00 97 10 157/102 (120) 97 Room Air 01/01/18 21:00 98 10 151/98 (115) 96 Room Air 01/01/18 20:30 100 11 157/102 (120) 97 Room Air 01/01/18 20:00 100 Room Air 01/01/18 20:00 104 27 155/100 (118) 96 Room Air 01/01/18 20:00 99.1 01/01/18 19:45 105 24 153/105 (121) 96 Room Air 01/01/18 19:30 106 18 156/106 (123) 97 Room Air 01/01/18 19:15 106 18 151/99 (116) 96 Room Air 01/01/18 19:00 108 01/01/18 19:00 108 14 153/102 (119) 97 Room Air 01/01/18 18:00 108 11 155/102 (119) 97 Room Air 01/01/18 17:00 103 17 148/97 (114) 97 Room Air 01/01/18 16:00 100 Room Air 01/01/18 16:00 108 23 143/90 (107) 97 Room Air 01/01/18 15:00 107 15 149/99 (116) 97 Room Air 01/01/18 14:00 101 14 146/97 (113) 98 Room Air 01/01/18 13:00 100 17 152/100 (117) 98 Room Air 01/01/18 13:00 101 01/01/18 12:04 Room Air 01/01/18 12:03 99.2 108 18 142/95 (111) 97 Room Air 01/01/18 11:00 112 7 141/92 (108) 98 Room Air 01/01/18 10:00 114 29 138/94 (109) 99 Room Air 01/01/18 09:00 110 27 136/86 (103) 98 Room Air 01/01/18 09:00 Room Air 01/01/18 08:00 111 21 152/96 (114) 99 Room Air 01/01/18 07:00 113 18 141/95 (110) 98 Room Air 01/01/18 07:00 114 01/01/18 06:00 105 12 139/90 (106) 99 Room Air I & O 01/02/18 07:00 Intake Total 3229.3333 ml Output Total 3500 ml Balance -270.6667 ml General Appearance: No Apparent Distress, Chronically ill, Cachetic HEENT: Moist Mucous Membranes, No Scleral Icterus (L), No Scleral Icterus (R), Other (temporal wasting) Neck: Normal Inspection Respiratory: Lungs Clear, No Accessory Muscle Use, No Respiratory Distress Cardiovascular: Regular Rate, Rhythm, No Murmur Capillary Refill: Less Than 3 Seconds Extremity: No Calf Tenderness, No Pedal Edema Neurologic/Psychiatric: Alert, Oriented x3 Skin: Normal Color, Warm/Dry Results Lab Laboratory Tests 12/31/17 11:50 12/31/17 14:14 12/31/17 16:12 12/31/17 18:22 01/01/18 00:30 01/01/18 02:05 01/01/18 08:10 01/02/18 03:20 Assessment/Plan Assessment/Plan DKA with severe dehydration -DKA protocol-- d/c'd CAD with hx of CABG Severe metabolic acidosis ARF -IVF and monitor hx of chronic pain 232 I am going to sign off pt is doing much better. Labs are still pending. Possible hospice consult. Critical Care: Critically Ill Patient LV REYES DO Jan 02, 2018 05:20
[2018-01-02 05:24] LABS: BUN/CREATININE RATIO 19; CALCIUM 9.2 MG/DL (8.5-10.1); CARBON DIOXIDE 24 MMOL/L (21-32); CHLORIDE 112 MMOL/L (98-107); GFR ESTIMATED > 60; GLUCOSE 172 MG/DL (70-105); POTASSIUM 2.8 MMOL/L (3.6-5.0); SODIUM 146 MMOL/L (135-145)
[2018-01-02] MEDS ORDERED: POTASSIUM CL 10MEQ/50ML IVPB 50 ML IV ONE (06:00)
[2018-01-02] MEDS: inSUlin (REGULAR) HUMAN 1 UNIT/0.01 ML (CHARGE PER UNIT) SC SCH ×2 (06:12→11:00)
[2018-01-02] MEDS: POTASSIUM CL 10MEQ/50ML IVPB 50 ML IV SCH ×3 (06:23→08:14)
[2018-01-02] MEDS: 1/2 NS IV SOLUTION 1,000 ML IV SCH (06:24)
[2018-01-02] MEDS ORDERED: MAGNESIUM 1 GM/100 ML IVPB 200 ML IV ONE (06:40)
[2018-01-02] MEDS: MAGNESIUM 1 GM/100 ML IVPB 100 ML IV SCH ×2 (06:52→06:53)
[2018-01-02] MEDS: THIAMINE 100 MG (VITAMIN B-1) TAB PO SCH (06:52)
[2018-01-02] MEDS ORDERED: MAGNESIUM 1 GM/100 ML IVPB 100 ML IV SCH (07:00)
[2018-01-02] MEDS ORDERED: INSU100V5 SQ (09:44)
[2018-01-02] MEDS ORDERED: ONDA4TAB11 SL (09:44)
--- NOTE | 2018-01-02 09:45 | Discharge Summary-Hospitalist ---
Diagnosis/Chief Complaint Date of Admission Dec 31, 2017 at 13:27 Date of Discharge Admission Diagnosis DKA Discharge Diagnosis DKA, Staph bacteremia (1) Diabetic ketoacidosis Status: Resolved Assessment & Plan: Acidosis resolved Continue Levemir 10U (2) Bacteremia due to Staphylococcus Status: Acute Assessment & Plan: Staph in all 4 tubes MSSA on culture- will DC Vanc and transition to Amoxil for DC TTE revealed EF of 25% with akinesis of anterior wall Discussed results with patient, he declined ZAC and wants no further workup or treatment for cardiomyopathy (3) Acute renal failure Status: Resolved Assessment & Plan: Resolved, creatinine 0.7 currently Will DC sal today (4) Alcohol abuse Status: Acute Assessment & Plan: alcohol level 13 Has history of alcohol abuse, no symptoms of withdrawal while admitted (5) Thrombocytosis Status: Acute Assessment & Plan: Trending down, heme consulted appreciate recs Likely reactive (6) Leukocytosis Status: Acute Assessment & Plan: WBC improving, likely leukemoid reaction (7) CAD (coronary artery disease) Status: Chronic Assessment & Plan: History of CABG in past cannot clarify further details Does not take any medications for his heart disease nor does he want to (8) Counseling regarding end of life decision making Assessment & Plan: Discussed with patient and regarding plan of care and code status on 01/01 and 01/02- please see previous notes Has elected to be DNR and will meet with [facility] (9) Systolic CHF Status: Chronic Assessment & Plan: NO signs of acute heart failure Discussed severity of heart disease, he denies any desire for treatment or surgery and states he will not take any new medications (10) Prophylactic measure Assessment & Plan: Lovenox Saline lock ADA diet Discharge Summary Consultations Dr Purcell- Surgery Dr Khoury- [facility] Discharge Physical Examination Allergies: Coded Allergies: No Known Drug Allergies (Unverified , 02/20/13) Vitals & I&Os Vital Signs Date Time Temp Pulse Resp B/P (MAP) Pulse Ox O2 Delivery O2 Flow Rate FiO2 01/02/18 10:00 101 140/95 (110) 93 Room Air 01/02/18 08:33 99.2 01/02/18 04:00 26 12/31/17 20:00 100 12/31/17 14:36 2.00 Hospital Course Pt admitted to the hospital for severe DKA. He was admitted to the ICU for insulin gtt and close monitoring. He responded well to insulin and fluids and overall status improved but workup for precipitating factor of DKA revealed her was bacteremic with MSSA. He declined a ZAC but was agreeable to TTE which revealed an EF of 25% with severe global hypokinesis. He declined any further treatment for his heart failure. He was agreeable to antibiotics and insulin though. He ultimately elected to DC home with hospice for symptom management given overall debility for multiple chronic illnesses. On day of discharge he complained of right hip pain following a fall prior to admission. Surgery was consulted for evaluation as was not entirely consistent with abscess and was concerning for hematoma. Ultimately no surgical intervention was required and he was discharged home with pain medication for comfort. Labs (last 24 hrs) Laboratory Tests 01/01/18 13:55: Glucometer 193H 01/01/18 16:14: Glucometer 275H 01/01/18 21:17: Glucometer 318H 01/02/18 03:20: White Blood Count 23.3H, Red Blood Count 4.24L, Hemoglobin 11.5L, Hematocrit 34L , Mean Corpuscular Volume 81, Mean Corpuscular Hemoglobin 27, Mean Corpuscular Hemoglobin Concent 33, Red Cell Distribution Width 13.3, Platelet Count 727H, Mean Platelet Volume 9.8, Neutrophils (%) (Auto) 83H, Lymphocytes (%) (Auto) 11L , Monocytes (%) (Auto) 7, Eosinophils (%) (Auto) 0, Basophils (%) (Auto) 0, Neutrophils # (Auto) 19.2H, Lymphocytes # (Auto) 2.5, Monocytes # (Auto) 1.5H, Eosinophils # (Auto) 0.0, Basophils # (Auto) 0.0, Neutrophils % (Manual) 79, Lymphocytes % (Manual) 15, Monocytes % (Manual) 2, Band Neutrophils 4, Blood Morphology Comment NORMAL 01/02/18 04:30: Sodium Level 146H, Potassium Level 2.8L, Chloride Level 112#H, Carbon Dioxide Level 24, Anion Gap 10, Blood Urea Nitrogen 13, Creatinine 0.70, Estimat Glomerular Filtration Rate > 60, BUN/Creatinine Ratio 19, Glucose Level 172H, Calcium Level 9.2, Magnesium Level 1.5L 01/02/18 04:58: Glucometer 184H 01/02/18 10:15: Sodium Level 140, Potassium Level 3.4L, Chloride Level 107, Carbon Dioxide Level 24, Anion Gap 9, Blood Urea Nitrogen 13, Creatinine 0.67, Estimat Glomerular Filtration Rate > 60, BUN/Creatinine Ratio 19, Glucose Level 278H, Calcium Level 8.7 Microbiology 12/31/17 Blood Culture - Preliminary, Resulted Staphylococcus aureus See Comments Pending Labs Laboratory Tests 01/02/18 04:58: Glucometer 184 01/02/18 10:15: Sodium Level 140, Potassium Level 3.4, Chloride Level 107, Carbon Dioxide Level 24, Anion Gap 9, Blood Urea Nitrogen 13, Creatinine 0.67, Estimat Glomerular Filtration Rate > 60, BUN/Creatinine Ratio 19, Glucose Level 278, Calcium Level 8.7 Discussion & Recommendations Discharge Planning: >30 minutes discharge planning Discharge Home Medications: Active Scripts Active Amoxicillin 500 Mg Tablet 500 Mg PO BID Percocet 10-325 mg Tablet (Oxycodone HCl/Acetaminophen) 1 Each Tablet 2 Tab PO Q6H PRN Ondansetron Odt (Ondansetron) 4 Mg Tab.rapdis 4 Mg SL Q4H PRN Levemir (Insulin Determir) 1,000 Units/10 Ml Soln 10 Unit SQ HS Reported Aspir 81 (Aspirin) 81 Mg Tablet.dr 81 Mg PO DAILY PRN Pantoprazole Sodium 40 Mg Tablet.dr 40 Mg PO DAILY Instructions to patient/family Please see electronic discharge instructions given to patient. Clinical Quality Measures End of Life/Advance Care Plan: Advance Care discuss with: patient, family member (s) End of Life Care: Hospice Care (Home) Plan: identified end-of-life goals, developed treatment plan AMI/AHF: Ejection Fraction: <40 (NINOSKA/ARB Indicated) D/C Inst. for HF given: Yes Reason NINOSKA-I/ARB not given: Other (hospice- patient declined) Reason Beta-Harley not given: Other (hospice- patient declined) Reason Statin not given: Other (Hospice- patient declined) DVT/VTE Risk/Contraindication: Risk Factor Score Per Nursin RFS Level Per Nursing on Admit: 4+=Very High Sepsis: Within 3hrs of presentation: Admin fluids, Admin ABX, Blood cultures prior to ABX's, Lactate level Problem Qualifiers (1) Diabetic ketoacidosis: Diabetes mellitus type: type 2 Diabetes mellitus complication detail: without coma Qualified Codes: E11.10 - Type 2 diabetes mellitus with ketoacidosis without coma (2) Acute renal failure: Acute renal failure type: unspecified Qualified Codes: N17.9 - Acute kidney failure, unspecified (3) Leukocytosis: Leukocytosis type: unspecified Qualified Codes: D72.829 - Elevated white blood cell count, unspecified (4) CAD (coronary artery disease): Coronary Disease-Associated Artery/Lesion type: unspecified vessel or lesion type [place] vs. transplanted heart: [place] heart Associated angina: without angina Qualified Codes: I25.10 - Atherosclerotic heart disease of [place] coronary artery without angina pectoris (5) Systolic CHF: Heart failure chronicity: chronic Qualified Codes: I50.22 - Chronic systolic (congestive) heart failure REYNA LIZ MD Jan 02, 2018 9:45 am
[2018-01-02 10:39] LABS: BUN/CREATININE RATIO 19; CALCIUM 8.7 MG/DL (8.5-10.1); CARBON DIOXIDE 24 MMOL/L (21-32); CHLORIDE 107 MMOL/L (98-107); CREATININE SERUM 0.67 MG/DL (0.60-1.30); GFR ESTIMATED > 60; GLUCOSE 278 MG/DL (70-105); POTASSIUM 3.4 MMOL/L (3.6-5.0); SODIUM 140 MMOL/L (135-145)
[2018-01-02] MEDS ORDERED: AMOX500T2 PO (11:57)
[2018-01-02] MEDS ORDERED: OXYC-202 PO (11:57)
--- NOTE | 2018-01-02 12:01 | Consultation ---
History of Present Illness History of Present Illness Patient Consulted On(cheryl/time) 01/02/18 11:56 Time Seen by Provider: 11:31 History of Present Illness Surgery is asked to consult regarding right hip pain; hematoma vs abscess. HPI per IM: Pt is a 57yoCM with a PMH of IDDMII, HTN, CAD, and alcohol abuse who presented to the ER for AMS. He believes he is here due to his pain though he provides a varying history. He states that he has a sore throat and it " hurts all the time." His states his mentation is what prompted his presentation to the ER. He also complains of pain "all over" that he states is due to the heart disease and diabetes. He cannot provide any specific source of his pain or describe his pain. He does complain of coughing but denies sputum. He has also complained of some dysuria over the past couple of days. He reports that he is supposed to be on insulin but has not taken it over 5 years because he doesn't like it. He reports the only pain medicines he takes are his pain pills. Of note he reports he drank "a half bottle of vodka" yesterday but has not drank for 7 months prior to this. Apparently pt fell on right hip in the past week or two and went to ER; work-up was negtive. He was admitted this time on 12/31 and unfortunately has multiple end stage medical problems. He has decided he does not want any further work- up or treatments and is going home on hospice. However, he is complaining of 10 out of 10 right hip pain and there is a fullness in this area. The Hospitalist would like this looked at to determine if anything should/needs to be done. Pt states he cannot lie on this hip and any movement causes pain at this spot. Allergies and Home Medications Allergies Coded Allergies: No Known Drug Allergies (Unverified , 02/20/13) Home Medications Aspirin 81 Mg Tablet.dr, 81 MG PO DAILY PRN for CHEST PAIN, (Reported) Insulin Determir 1,000 Units/10 Ml Soln, 10 UNIT SQ HS Prescribed by: REYNA LIZ on 01/02/18 0944 Ondansetron 4 Mg Tab.rapdis, 4 MG SL Q4H PRN for NAUSEA/VOMITING-1ST LINE Prescribed by: REYNA LIZ on 01/02/18 0944 Oxycodone HCl/Acetaminophen 1 Each Tablet, 2 TAB PO Q6H PRN for PAIN-SEVERE, ( Reported) Pantoprazole Sodium 40 Mg Tablet.dr, 40 MG PO DAILY, (Reported) Patient Home Medication List Home Medication List Reviewed: Yes Past Chydlhk-Iryrdq-Dnaqhy Hx Patient Social History Alcohol Use: Occasionally Uses Recreational Drug Use: No Smoking Status: Former Smoker Former Smoker, Quit: Aug 27, 2013 Type Used: Cigarettes Recent Foreign Travel: No Contact w/Someone Who Travel: No Recent Infectious Disease Expo: No Recent Hopitalizations: No Physical Abuse Screen: No Sexual Abuse: No Immunizations Up To Date Tetanus Booster (TDap): More than 5yrs PED Vaccines UTD: No Seasonal Allergies Seasonal Allergies: No Surgeries History of Surgeries: Yes Surgeries: CABG, Coronary Stent, Orthopedic Respiratory History of Respiratory Disorde: No Respiratory Disorders: COPD Cardiovascular History of Cardiac Disorders: Yes Cardiac Disorders: Coronary Artery Disease, High Cholesterol, Hypertension Neurological History of Neurological Disord: No Neurological Disorders: Neuropathy Reproductive System Hx Reproductive Disorders: No Sexually Transmitted Disease: No HIV/AIDS: No Genitourinary History of Genitourinary Disor: No Gastrointestinal History of Gastrointestinal Di: Yes Gastrointestinal Disorders: Abdominal Hernia, Gastroesophageal Reflux, Chronic Diarrhea Musculoskeletal History of Musculoskeletal Dis: Yes Musculoskeletal Disorders: Arthritis, Chronic Back Pain Endocrine History of Endocrine Disorders: Yes Endocrine Disorders: Diabetes, Insulin dep HEENT History of HEENT Disorders: No Loss of Vision: Denies Hearing Impairment: Denies Cancer History of Cancer: No Psychosocial History of Psychiatric Problem: No Integumentary History of Skin or Integumenta: No Blood Transfusions History of Blood Disorders: Yes Adverse Reaction to a Blood Tr: No Family Medical History Significant Family History: Heart Disease, Diabetes Family Medial History: Cardiovascular disease 19 MOTHER G8 BROTHER Diabetes mellitus 19 MOTHER Review of Systems-General Constitutional: chills, diaphoresis, malaise, weakness, weight loss EENTM: No blurred vision, No mouth swelling, No throat swelling Respiratory: dyspnea on exertion, No hemoptysis, short of breath Cardiovascular: No chest pain, No edema, Hx of Intervention Gastrointestinal: No abdominal pain, No hematemesis, No jaundice Genitourinary: frequency, No hematuria Musculoskeletal: back pain, joint pain, joint swelling, muscle stiffness Physical Exam-General Problems Physical Exam Vital Signs Vital Signs - First Documented 3/7/18 3/7/18 11:33 14:36 Temp 92.1 Pulse 107 Resp 28 B/P (MAP) 84/60 (68) Pulse Ox 98 O2 Delivery Nasal Cannula O2 Flow Rate 2.00 FiO2 100 Capillary Refill : Less Than 3 Seconds General Appearance: moderate distress, cachetic Eyes: Bilateral Eye PERRL, Bilateral Eye EOMI HEENT: pharynx normal, No scleral icterus (R), No scleral icterus (L), No pale conjunctivae (R), No pale conjunctivae (L) Neck: supple, No thyromegaly Respiratory: no respiratory distress, no accessory muscle use, crackles Cardiovascular: no edema, tachycardia Gastrointestinal: non tender, soft, no organomegaly, no pulsatile mass Back: no CVA tenderness, no vertebral tenderness Neurologic/Psychiatric: supplies packer II-XII nml as tested, alert, oriented x 3 Skin: other (pt has a fullness over right hip, slightly warm, no real erythema , some ecchymosis but not much. It is very tender to even light touch. Does not feel like fluctuance) Lymphatic: no adenopathy (neck, axilla or groin) Data Review Labs Laboratory Tests 01/01/18 12:01: Glucometer 181H 01/01/18 13:55: Glucometer 193H 01/01/18 16:14: Glucometer 275H 01/01/18 21:17: Glucometer 318H 01/02/18 03:20: White Blood Count 23.3H, Red Blood Count 4.24L, Hemoglobin 11.5L, Hematocrit 34L , Mean Corpuscular Volume 81, Mean Corpuscular Hemoglobin 27, Mean Corpuscular Hemoglobin Concent 33, Red Cell Distribution Width 13.3, Platelet Count 727H, Mean Platelet Volume 9.8, Neutrophils (%) (Auto) 83H, Lymphocytes (%) (Auto) 11L , Monocytes (%) (Auto) 7, Eosinophils (%) (Auto) 0, Basophils (%) (Auto) 0, Neutrophils # (Auto) 19.2H, Lymphocytes # (Auto) 2.5, Monocytes # (Auto) 1.5H, Eosinophils # (Auto) 0.0, Basophils # (Auto) 0.0, Neutrophils % (Manual) 79, Lymphocytes % (Manual) 15, Monocytes % (Manual) 2, Band Neutrophils 4, Blood Morphology Comment NORMAL 01/02/18 04:30: Sodium Level 146H, Potassium Level 2.8L, Chloride Level 112#H, Carbon Dioxide Level 24, Anion Gap 10, Blood Urea Nitrogen 13, Creatinine 0.70, Estimat Glomerular Filtration Rate > 60, BUN/Creatinine Ratio 19, Glucose Level 172H, Calcium Level 9.2, Magnesium Level 1.5L 01/02/18 04:58: Glucometer 184H 01/02/18 10:15: Sodium Level 140, Potassium Level 3.4L, Chloride Level 107, Carbon Dioxide Level 24, Anion Gap 9, Blood Urea Nitrogen 13, Creatinine 0.67, Estimat Glomerular Filtration Rate > 60, BUN/Creatinine Ratio 19, Glucose Level 278H, Calcium Level 8.7 Microbiology 12/31/17 Blood Culture - Preliminary, Resulted Staphylococcus aureus See Comments Assessment/Plan Assessment/Plan Assessment/Plan Right hip pain r/o hematoma vs. abscess CAD end stage with EF of 25% Bacteremia HTN COPD Arthritis DM Pt has elected to go home on hospice. The right hip area is very tender but I am not convinced this is an abscess. He had trauma to the area and so most likely it is a hematoma; if this is the case then no surgery would be indicated. I think the best option for this patient because of his desire to "just go home" is pain control. If the area worsens and gets redder, then I&D to drain for pain control would be a good option. At this time I don't have anything surgical to offer. Thank you for this consult. Clinical Quality Measures DVT/VTE Risk/Contraindication: Risk Factor Score Per Nursin RFS Level Per Nursing on Admit: 4+=Very High MARTI DUTTON DO Jan 02, 2018 12:01
[2018-01-02] MEDS ORDERED: TROUGH ORDER-PHARMACY XX NR (19:00)
[2018-01-03] MEDS ORDERED: KCL 20 MEQ TAB (K-DUR) PO SCH (06:00)
[2018-01-03] MEDS ORDERED: POTASSIUM CL 10MEQ/50ML IVPB 50 ML IV SCH (06:00)
--- NOTE | 2018-01-05 16:18 | Physician Query Clarification ---
PQ-Uncertain Diagnosis Admission/Discharge Admission Date: Dec 31, 2017 at 13:27 Discharge Date: Jan 02, 2018 at 14:00 The medical record reflects the following clinical scenario: History/Risk Factors Admitted with diabetic ketoacidosis and acute renal failure Clinical Findings: WBC 51.1, B/P 105/76, Pulse 102 Treatment: Zosyn, IV Insulin Question: Is sepsis and/or septic shock a clinically valid diagnosis? Sepsis was documented in Dr. Reddy Consult, he states staph aureus sepsis, also your 01/01 progress notes state technically septic shock yesterday with no further documentation in the medical record. Please document a response below. PHYSICIAN RESPONSE Diagnosis clinically valid: Other, explanation/clinical finding Explanation of clincal finding Did not present with clear sepsis picture and clinical findings were consistent with DKA thus confounding secondary diagnosis of sepsis. He was found to be bacteremic on day 2 of admission and met sepsis criteria more clearly then when his DKA was resolved. In responding to this query, please exercise your independent professional judgment. The purpose of this communication is to more accurately reflect the complexity of your patients condition. The fact that a question is asked does not imply that any particular answer is desired or expected. Thank you for your timely response to this clarification. Requestors name: [ ] Phone # [ ] THIS PHYSICIAN QUERY FORM IS A PERMANENT PART OF THE MEDICAL RECORD SEDA KUMAR Jan 05, 2018 16:18 REYNA LIZ MD Jan 06, 2018 19:44
== END 2018-01-02 14:00 | disposition hospice, home (50) | DRG 871 ==
LOC: EDUNIT# 11:30 → ER 11:31 → ICU 13:27
PROVIDERS: ADMIT Family Medicine; ATTEND Family Medicine
PROC: 02HV33Z Insertion of Infusion Device into Superior Vena Cava, Percutaneous Approach (ICD-10-PCS; principal; 2017-12-31)
DX: A41.01 Sepsis due to Methicillin susceptible Staphylococcus aureus (principal); E11.10 Type 2 diabetes mellitus with ketoacidosis without coma; E11.40 Type 2 diabetes mellitus with diabetic neuropathy, unspecified; E87.2 Acidosis; N17.9 Acute kidney failure, unspecified; I50.22 Chronic systolic (congestive) heart failure; R78.81 Bacteremia; I42.9 Cardiomyopathy, unspecified; E86.0 Dehydration; I11.0 Hypertensive heart disease with heart failure; E11.65 Type 2 diabetes mellitus with hyperglycemia; B95.8 Unspecified staphylococcus as the cause of diseases classified elsewhere; I25.10 Atherosclerotic heart disease of native coronary artery without angina pectoris; Z66 Do not resuscitate; J44.9 Chronic obstructive pulmonary disease, unspecified; F10.10 Alcohol abuse, uncomplicated; D47.3 Essential (hemorrhagic) thrombocythemia; E87.6 Hypokalemia; E78.00 Pure hypercholesterolemia, unspecified; K21.9 Gastro-esophageal reflux disease without esophagitis; M19.91 Primary osteoarthritis, unspecified site; M54.9 Dorsalgia, unspecified; G89.29 Other chronic pain; Z95.1 Presence of aortocoronary bypass graft; Z95.5 Presence of coronary angioplasty implant and graft; Z87.891 Personal history of nicotine dependence; Z79.4 Long term (current) use of insulin; D72.829 Elevated white blood cell count, unspecified; M25.551 Pain in right hip; Z91.81 History of falling
CPT/HCPCS: 36415; 71045; 80048; 80053; 80306; 80320; 81000; 81270; 82040; 82271; 82805; 82962; 83036; 83605; 83735; 84100; 85007; 85025; 85027; 85610; 85730; 87040; 87077; 87186; 93306; 96374; 96375

== ENCOUNTER → 2018-01-19 | Outpatient (CLI) | payer OTHER, MEDICARE ==
[~2018-01-19] MED LIST changes: +AMOX500T2 PO; +ONDA4TAB11 SL
== END ==
LOC: HOSHH 08:00
PROVIDERS: ATTEND Family Medicine
DX: T14.8XXA Other injury of unspecified body region, initial encounter (principal); L08.9 Local infection of the skin and subcutaneous tissue, unspecified
CPT/HCPCS: 87070; 87077; 87205

== ENCOUNTER → 2018-09-16 | Outpatient (CLI) | payer MEDICARE ==
[~2018-09-16] MED LIST changes: -OXYC-202 PO; +OXYC1TAB12 PO
[2018-09-16 13:17] LABS: BILIRUBIN,URINE NEGATIVE (NEGATIVE); CLARITY,URINE CLEAR; COLOR,URINE YELLOW; GLUCOSE, URINE (UA) 4+ (NEGATIVE); KETONES,URINE NEGATIVE (NEGATIVE); LEUKOCYTE ESTERASE ,URINE NEGATIVE (NEGATIVE); NITRITE,URINE NEGATIVE (NEGATIVE); PH,URINE 6.5 (5-9); PROTEIN,URINE 2+ (NEGATIVE); UROBILINOGEN,URINE 1 MG/DL (NORMAL)
[2018-09-16 13:26] LABS: BACTERIA,URINE TRACE /HPF; SQUAMOUS EPITHELIAL CELL,UR RARE /HPF
== END ==
LOC: HOSHH 13:13
PROVIDERS: ATTEND Family Medicine
DX: R30.0 Dysuria (principal); R50.9 Fever, unspecified
CPT/HCPCS: 81000